=== PATIENT | female | born 1965 | race Caucasian/White ===

== ENCOUNTER → 2016-03-01 | Outpatient (CLI) | payer MEDICARE, OTHER ==
--- NOTE | 2016-03-01 14:25 | XR ---
EXAMINATION TYPE: XR soft tissue neck DATE OF EXAM: 03/01/2016 8:52 AM COMPARISON: NONE HISTORY: Sore throat for one week. TECHNIQUE: 2 views of soft tissue neck are obtained. FINDINGS: No suspicious prevertebral soft tissue swelling is present on lateral view. Region of epigl ottis and vallecula appears within normal limits. Nasopharyngeal airway is patent. No suspicious narr owing of subglottic airway is seen on frontal view. Overlying leads from a pain relief device noted i n the posterior soft tissue. Mild spurring C5-C6 and C6-C7 levels anteriorly is present. Mild disc sp corky narrowing C6-C7 level is noted. IMPRESSION: No significant finding is seen to account for patient's symptoms
== END | disposition home or self-care (01) ==
LOC: RADXRMAIN 08:38
PROVIDERS: ATTEND Family Medicine
DX: J02.9 Acute pharyngitis, unspecified (principal)
CPT/HCPCS: 70360

== ENCOUNTER 2016-07-11 09:05 | Day surgery (SDC) | payer MEDICARE, OTHER ==
[2016-07-07 08:56] VITALS: BMI 27.1
[~2016-07-11 09:05] MED LIST: LACTATED RINGERS 1,000 ML IV SCH
[2016-07-11 12:07] VITALS: RESP 16; TEMP 98.2
[2016-07-11] MEDS ORDERED: LIDOCAINE 1% 20 ML VIAL (10MG/ML) FOR IV START INTRADERMA ONE (12:24)
[2016-07-11] MEDS ORDERED: PROPOFOL 10 MG/ML 20 ML VIAL IV ONE (12:44)
--- NOTE | 2016-07-11 13:27 | P.PCN ---
Date of Procedure: 07/11/16 Preoperative Diagnosis: Postoperative Diagnosis: Procedure(s) Performed: Procedures: 1. Esophagogastroduodenoscopy and biopsy. 2. Total colonoscopy. Preoperative diagnosis: Dysphagia and change in bowel habits. Postoperative diagnosis: 1. Small sliding hiatal hernia with no obvious esophagitis or complicated reflux disease. 2. Mild antral gastritis. 3. Diverticulosis of the colon. Preparation: HalfLytely prep. Sedation: Was provided by anesthesia. Brief clinical history: The patient is a 51-year-old female who is referred for this evaluation because of dysphagia and change in bowel habits in the form of constipation. The patient had evaluation back in 2009 for reflux disease and it included manometry and 24-hour pH in addition to upper endoscopy. She also had colonoscopy in the past. She is scheduled for cholecystectomy next week for cholelithiasis. This evaluation was requested to assess for esophagitis or complicated reflux disease or colon pathology. Procedure: With the patient on her left lateral decubitus position and after informed consent and adequate sedation, I passed the Olympus-GIF 160 video upper endoscope through the cricopharyngeus down the esophagus. GE junction was around 34 cm from the incisors and there was a small sliding hiatal hernia. The esophagus did not show any obvious erosions, ulcers, strictures or Colon 's esophagus. The endoscope was then passed into the stomach which was insufflated with air and inspected in detail including the retroflex view in the cardia. There was some mottling and erythema in the antrum but no ulcers or erosions. Pyloric channel, duodenal bulb, post bulbar area and descending duodenum appeared essentially within normal limits. Because of her symptoms, I obtained biopsies from the duodenum, antrum and esophagus before the endoscope was withdrawn then I proceeded with the colonoscopy. Perianal area did not show any fissures or fistulas. There were no masses felt on digital rectal examination. The Olympus CFQ 160L video colonoscope was then inserted in the rectum in the usual fashion and advanced to the cecum. The mucosa appeared healthy. Multiple diverticular orifices were seen scattered, mostly on the left side with some around the hepatic flexure and on the right side, with no evidence of acute diverticulitis or strictures. No polyps or tumors were seen. I retroflexed the endoscope in the rectum before the endoscope was withdrawn. The patient tolerated the procedure well. Plan: The patient was reassured. Will await biopsy results and make further plans based on her course and biopsy results. She will follow-up with you as planned. Implants: Indications for Procedure: Operative Findings: Description of Procedure:
[2016-07-11 13:37] VITALS: BP 114/77; PULSE 80
== END 2016-07-11 14:01 | disposition home or self-care (01) ==
LOC: ORWHC2ENDO 09:05
DX: K29.50 Unspecified chronic gastritis without bleeding (principal); K21.0 Gastro-esophageal reflux disease with esophagitis; K57.30 Diverticulosis of large intestine without perforation or abscess without bleeding; K44.9 Diaphragmatic hernia without obstruction or gangrene; M79.7 Fibromyalgia; I10 Essential (primary) hypertension; E78.5 Hyperlipidemia, unspecified; I67.1 Cerebral aneurysm, nonruptured; R56.9 Unspecified convulsions; I69.354 Hemiplegia and hemiparesis following cerebral infarction affecting left non-dominant side; F17.200 Nicotine dependence, unspecified, uncomplicated; Z79.02 Long term (current) use of antithrombotics/antiplatelets; Z79.1 Long term (current) use of non-steroidal anti-inflammatories (NSAID); Z79.891 Long term (current) use of opiate analgesic; Z79.899 Other long term (current) drug therapy; Z88.8 Allergy status to other drugs, medicaments and biological substances
CPT/HCPCS: 81025; 88305; 88342; 45378; 43239; J2704

== ENCOUNTER 2016-07-20 05:45 | Day surgery (SDC) | payer MEDICARE, OTHER ==
[2016-07-19 08:24] VITALS: BMI 26.7
[~2016-07-20 05:45] MED LIST changes: +DEXAMETHASONE SOD PHOSPHATE 10 MG/ML 1 ML VIAL IV ONE; +HEPARIN SODIUM,PORCINE 5,000 UNIT/ML 1 ML VIAL SQ ONE; +MIDAZOLAM 2 MG/2 ML VIAL IV PRN; +ONDANSETRON 4 MG/2 ML VIAL IVP ONE
[2016-07-20] MEDS ORDERED: LIDOCAINE 1% 20 ML VIAL (10MG/ML) FOR IV START SQ ONE (06:29)
[2016-07-20] MEDS ORDERED: SCOPOLAMINE 1.5MG/72HR PATCH TRANSDERM ONE (06:33)
--- NOTE | 2016-07-20 07:11 | P.GSHP ---
History of Present Illness H&P Date: 07/20/16 Chief Complaint: Cholecystitis Is a 51-year-old female referred from Dr. Crain. Patient presents today for laparoscopic cholecystectomy. Patient's had a HIDA scan shows abnormal ejection fraction. Stress today for laparoscopic cholecystectomy. Past Medical History Past Medical History: CVA/TIA, Fibromyalgia, GERD/Reflux, Hyperlipidemia, Hypertension, Neurologic Disorder, Seizure Disorder Additional Past Medical History / Comment(s): LAST SEIZURE 12/2015,severe migraines from brain aneurysm, TIA, states x6, LEFT ARM WEAKNESS, NEUROPATHY MATT LEGS, memory loss History of Any Multi-Drug Resistant Organisms: None Reported Past Surgical History: Appendectomy, Uterine Ablation Additional Past Surgical History / Comment(s): r lung surgery top portion lung removed, (STATES R/T FUNGUS) Has implanted TENS unit in back of head WITH BATTERY PACK IN BACK; surgical revision done by Dr. Linton in September 2013, Past Anesthesia/Blood Transfusion Reactions: No Reported Reaction Additional Past Anesthesia/Blood Transfusion Reaction / Comment(s): STATES VERY HARD IV START, Past Psychological History: Anxiety, Panic Disorder Smoking Status: Current every day smoker Past Alcohol Use History: Rare Additional Past Alcohol Use History / Comment(s): smokes 1ppd from age 19, (1983 ) ONCE A WEEK alchohol) Past Drug Use History: None Reported Additional Drug Use History / Comment(s): PAST HISTORY, NONE IN 10 YEARS - Past Family History Mother Family Medical History: Cancer Additional Family Medical History / Comment(s): COLON Brother(s) Family Medical History: Cancer Additional Family Medical History / Comment(s): COLON Medications and Allergies Home Medications Medication Instructions Recorded Confirmed Type Cetirizine HCl 10 mg PO DAILY 09/07/13 07/20/16 History Dicyclomine [Bentyl] 10 mg PO BID 09/07/13 07/20/16 History HYDROcodone/APAP 7.5-325MG [[place] 1 each PO Q12HR PRN 09/07/13 07/20/16 History 7.5] Hydrochlorothiazide [Hydrodiuril] 25 mg PO DAILY 09/07/13 07/20/16 History Ibuprofen [Motrin] 800 mg PO Q6HR PRN 09/07/13 07/19/16 History LORazepam [Ativan] 0.5 mg PO DAILY PRN 09/07/13 07/20/16 History Multivitamins, Thera [Multivitamin] 1 cap PO DAILY 09/07/13 07/19/16 History Ondansetron [Zofran ODT] 8 mg PO ONCE PRN 09/07/13 07/20/16 History Ranitidine HCl [Zantac] 150 mg PO DIRECTED PRN 09/07/13 07/20/16 History Scopolamine 1.5MG/72Hr Patch 1 patch TRANSDERM Q72H PRN 09/07/13 07/20/16 History [Trans-Derm Scop 1.5MG/72Hr Patch] Clopidogrel [Plavix] 75 mg PO DAILY 02/16/14 07/19/16 History Benazepril HCl [Lotensin] 20 mg PO DAILY 10/09/14 07/20/16 History Cyclobenzaprine [Flexeril] 10 mg PO HS 10/09/14 07/20/16 History Divalproex [Depakote] 1,000 mg PO BID 10/09/14 07/20/16 History Lidocaine 5% Patch [Lidoderm 5% 1 applic TOPICAL Q12H PRN 10/09/14 07/20/16 History Patch] Pregabalin [Lyrica] 100 mg PO BID 10/09/14 07/20/16 History Vitamin D(Different Dose) 1.25 mg PO Q30D 10/09/14 07/20/16 History levETIRAcetam [Keppra] 1,000 mg PO BID 10/09/14 07/20/16 History Gemfibrozil [Lopid] 600 mg PO AC-BID 07/07/16 07/20/16 History Allergies Allergy/AdvReac Type Severity Reaction Status Date / Time naratriptan HCl [From Amerge] Allergy Unknown Verified 07/19/16 08:10 Jyqdttx-Qql-Hav Reductase Allergy Rash/Hives Verified 07/19/16 08:10 Inhibitor migraine medications AdvReac causes Uncoded 07/19/16 08:10 seizures Surgical - Exam Vital Signs Temp Pulse Resp BP Pulse Ox 97.7 F 75 16 94/65 97 07/20/16 06:15 07/20/16 06:15 07/20/16 06:15 07/20/16 06:15 07/20/16 06:15 - General well developed, no distress - Eyes PERRL - ENT normal pinna - Neck no masses - Respiratory normal expansion - Cardiovascular Rhythm: regular - Abdomen Abdomen: soft, non tender Assessment and Plan Plan: Chronic cholecystitis. We'll perform laparoscopic cholecystectomy.
[2016-07-20] MEDS ORDERED: ROCURONIUM BROMIDE 10 MG/ML 10 ML VIAL IV ONE (07:13)
[2016-07-20] MEDS ORDERED: GLYCOPYRROLATE 0.2 MG/ML 2 ML VIAL ONE (07:13)
[2016-07-20] MEDS ORDERED: PROPOFOL 10 MG/ML 20 ML VIAL IV ONE (07:13)
[2016-07-20] MEDS ORDERED: KETAMINE 10 MG/ML 20 ML VIAL ONE (07:13)
[2016-07-20] MEDS ORDERED: SUCCINYLCHOLINE CHLORIDE 100 MG/5 ML SYR IV ONE (07:13)
[2016-07-20] MEDS ORDERED: MIDAZOLAM 2 MG/2 ML VIAL ONE (07:13)
[2016-07-20] MEDS ORDERED: NEOSTIGMINE 1 MG/ML 10 ML VIAL ONE (07:13)
[2016-07-20] MEDS: ceFAZolin 2 GM in SODIUM CHLORIDE 0.9% 100 ML IVPB ONE ×2 (07:13→07:19)
[2016-07-20] MEDS ORDERED: fentaNYL (PF) 50 MCG/ML 2 ML AMP ONE (07:13)
[2016-07-20] MEDS ORDERED: LIDOCAINE 1% INJ 10MG/ML (20 ML MDV) ONE (07:13)
[2016-07-20] MEDS ORDERED: BUPIVACAIN-EPI 0.25%-1:200,000 30 ML VIAL SQ ONE ×2 (07:15→07:30)
[2016-07-20] MEDS: HYDROmorphone 1 MG/ML 1 ML SYRINGE IVP PRN ×3 (07:45→08:10)
--- NOTE | 2016-07-20 07:48 | P.OP ---
Date of Procedure: 07/20/16 Preoperative Diagnosis: Cholecystitis Postoperative Diagnosis: Cholecystitis Procedure(s) Performed: Laparoscopic cholecystectomy Implants: Anesthesia: LARON Surgeon: Baldo Hodges Estimated Blood Loss (ml): 5 Pathology: other (Gallbladder) Condition: stable Disposition: PACU Indications for Procedure: Operative Findings: Description of Procedure: The patient was placed on the operating table. The patient received a general endotracheal tube anesthesia. The patients abdomen was prepped and draped in the usual sterile fashion. Through an infraumbilical stab incision, the fascia of the anterior abdominal wall was grasped with a pair of Kochers and then the Veress needle was placed in the peritoneal cavity. Position of the Veress needle was confirmed with positive drop test. The abdomen was then insufflated. After adequate insufflation, the 10 mm trocar was placed in the peritoneal cavity. Following this the laparoscope was placed in the peritoneal cavity. The patient was placed in the head-up, right side up position and then a 5 mm trocar was placed in the right lateral and right subcostal position under direct visualization. A 8 mm trocar was placed in the epigastric position. The gallbladder was grasped in the fundus and infundibulum. Traction on the gallbladder was placed in the lateral and the cephalad positions. The triangle of Calot was visualized.. The cystic duct was bluntly dissected until the union of the cystic duct and common bile duct was seen. The cystic duct was then divided and sealed with the Harmonic scissors. A PDS Endoloop was then placed throughout the cystic duct stump. The cystic artery divided and sealed with the Harmonic scissors. The gallbladder was then removed from the liver bed using Harmonic scissors. The gallbladder was then extracted through the epigastric port site. Operative field was checked for any bleeding spots and Harmonic scissors was used to coagulate the liver bed. The abdomen was irrigated. The trocars were removed. The skin was closed using interrupted 3-0 Vicryl suture. Dermabond dressing were applied. The patient tolerated the procedure well.
[2016-07-20 08:09] VITALS: TEMP 98
[2016-07-20] MEDS ORDERED: KETOROLAC 30 MG/ML 1 ML VIAL IVP ONE (08:10)
[2016-07-20] MEDS ORDERED: MEPERIDINE 50 MG/ML SYRINGE IVP ONE (08:44)
[2016-07-20] MEDS ORDERED: FAMOTIDINE 20 MG/2 ML VIAL IVP ONE (08:52)
[2016-07-20] MEDS ORDERED: METOCLOPRAMIDE 5 MG/ML 2 ML VIAL IVP ONE (08:54)
[2016-07-20] MEDS ORDERED: HYDROcodone/APAP 7.5-325MG 1 EACH TAB PO ONE (09:10)
[2016-07-20 09:39] VITALS: BP 118/74; PULSE 74; RESP 16
== END 2016-07-20 10:13 | disposition home or self-care (01) ==
LOC: OR 05:45
PROVIDERS: ATTEND Surgery
DX: K80.12 Calculus of gallbladder with acute and chronic cholecystitis without obstruction (principal); I10 Essential (primary) hypertension; E78.5 Hyperlipidemia, unspecified; K21.9 Gastro-esophageal reflux disease without esophagitis; M79.7 Fibromyalgia; G40.909 Epilepsy, unspecified, not intractable, without status epilepticus; F17.200 Nicotine dependence, unspecified, uncomplicated; Z88.8 Allergy status to other drugs, medicaments and biological substances; Z79.02 Long term (current) use of antithrombotics/antiplatelets; Z79.899 Other long term (current) drug therapy; Z86.73 Personal history of transient ischemic attack (TIA), and cerebral infarction without residual deficits; Z80.0 Family history of malignant neoplasm of digestive organs; Z90.49 Acquired absence of other specified parts of digestive tract
CPT/HCPCS: 47562; 81025; 88304; J2250; J1644; J1100; J2710; J2765; J2175; J0690; J2405; J2001; J3010; J1885; J1170; J0330; J2704

== ENCOUNTER 2016-10-19 12:07 | Inpatient (IN) | payer MEDICARE, OTHER ==
[2016-10-19] MEDS ORDERED: SODIUM CHLORIDE 0.9% 1,000 ML IV STA ×2 (12:38)
[2016-10-19] MEDS ORDERED: KETOROLAC 30 MG/ML 1 ML VIAL IVP STA (12:38)
[2016-10-19] MEDS ORDERED: HYDROmorphone 1 MG/ML 1 ML SYRINGE IVP STA ×2 (12:38→15:27)
[2016-10-19] MEDS ORDERED: ONDANSETRON 4 MG/2 ML VIAL IVP STA (12:39)
--- NOTE | 2016-10-19 12:58 | ED ---
Abdominal Pain HPI - General Chief Complaint: Abdominal Pain Stated Complaint: POSS KIDNEY STONE Time Seen by Provider: 10/19/16 12:31 Source: patient, RN notes reviewed, old records reviewed Mode of arrival: wheelchair Limitations: no limitations - History of Present Illness Initial Comments: This is a 51-year-old female presents emergency Department chief complaint of left-sided flank pain for the past 2 days. Patient reports that she saw her primary care doctor she had a foul odor to her urine and some blood in her urine. Patient reports that she started to have some fevers and chills. Patient reports that yesterday they diagnosed her with urinary tract infection and placed her on antibiotic. She reports the pain became progressively worse. Did have episode of vomiting earlier today. Patient states that she's had a history of cholecystectomy. Denies any previous History of kidney stones. - Related Data Home Medications Medication Instructions Recorded Confirmed Cetirizine HCl 10 mg PO DAILY 09/07/13 10/19/16 Dicyclomine [Bentyl] 10 mg PO BID 09/07/13 10/19/16 Hydrochlorothiazide [Hydrodiuril] 25 mg PO DAILY 09/07/13 10/19/16 Ibuprofen [Motrin] 800 mg PO Q6HR PRN 09/07/13 10/19/16 LORazepam [Ativan] 0.5 mg PO BID PRN 09/07/13 10/19/16 Multivitamins, Thera [Multivitamin] 1 tab PO DAILY 09/07/13 10/19/16 Ondansetron [Zofran ODT] 8 mg PO DAILY PRN 09/07/13 10/19/16 Ranitidine HCl [Zantac] 150 mg PO BID 09/07/13 10/19/16 Clopidogrel [Plavix] 75 mg PO DAILY 02/16/14 10/19/16 Benazepril HCl [Lotensin] 20 mg PO DAILY 10/09/14 10/19/16 Cyclobenzaprine [Flexeril] 10 mg PO HS 10/09/14 10/19/16 Divalproex [Depakote] 1,000 mg PO BID 10/09/14 10/19/16 levETIRAcetam [Keppra] 1,000 mg PO BID 10/09/14 10/19/16 Gemfibrozil [Lopid] 600 mg PO AC-BID 07/07/16 10/19/16 Aspirin 81 mg PO DAILY 10/19/16 10/19/16 Ergocalciferol (Vitamin D2) 50,000 unit PO Q30D 10/19/16 10/19/16 [Vitamin D2] HYDROcodone/APAP 7.5-325MG [[place] 1 tab PO QID PRN 10/19/16 10/19/16 7.5] Omeprazole [PriLOSEC] 10 mg PO DAILY 10/19/16 10/19/16 Pregabalin [Lyrica] 75 mg PO BID 10/19/16 10/19/16 Sulfamethox-Tmp 800-160Mg [Bactrim 1 tab PO Q12HR 10/19/16 10/19/16 DS 800-160 mg] Allergies Allergy/AdvReac Type Severity Reaction Status Date / Time naratriptan HCl [From Amerge] Allergy Unknown Verified 10/19/16 12:43 Kcgtuae-Lqj-Izk Reductase Allergy Rash/Hives Verified 10/19/16 12:43 Inhibitor migraine medications AdvReac causes Uncoded 10/19/16 12:26 seizures Review of Systems ROS Statement: Those systems with pertinent positive or pertinent negative responses have been documented in the HPI. ROS Other: All systems not noted in ROS Statement are negative. Past Medical History Past Medical History: CVA/TIA, Fibromyalgia, GERD/Reflux, Hyperlipidemia, Hypertension, Neurologic Disorder, Seizure Disorder Additional Past Medical History / Comment(s): LAST SEIZURE 12/2015,severe migraines from brain aneurysm, TIA, states x6, LEFT ARM WEAKNESS, NEUROPATHY MATT LEGS, memory loss History of Any Multi-Drug Resistant Organisms: None Reported Past Surgical History: Appendectomy, Uterine Ablation Additional Past Surgical History / Comment(s): r lung surgery top portion lung removed, (STATES R/T FUNGUS) Has implanted TENS unit in back of head WITH BATTERY PACK IN BACK; surgical revision done by Dr. Linton in September 2013, Past Anesthesia/Blood Transfusion Reactions: No Reported Reaction Additional Past Anesthesia/Blood Transfusion Reaction / Comment(s): STATES VERY HARD IV START, Past Psychological History: Anxiety, Panic Disorder Smoking Status: Current every day smoker Past Alcohol Use History: Rare Past Drug Use History: None Reported - Past Family History Mother Family Medical History: Cancer Additional Family Medical History / Comment(s): COLON Brother(s) Family Medical History: Cancer Additional Family Medical History / Comment(s): COLON General Exam - General Exam Comments Initial Comments: 51-year-old female. No acute distress. Limitations: no limitations General appearance: alert, in no apparent distress Head exam: Present: atraumatic, normocephalic, normal inspection Eye exam: Present: normal appearance, PERRL, EOMI. Absent: scleral icterus, conjunctival injection, periorbital swelling ENT exam: Present: normal exam, mucous membranes moist Neck exam: Present: normal inspection. Absent: tenderness, meningismus, lymphadenopathy Respiratory exam: Present: normal lung sounds bilaterally. Absent: respiratory distress, wheezes, rales, rhonchi, stridor Cardiovascular Exam: Present: regular rate, normal rhythm, normal heart sounds. Absent: systolic murmur, diastolic murmur, rubs, gallop, clicks GI/Abdominal exam: Present: soft, tenderness (left sided abdominal tenderness), normal bowel sounds. Absent: distended, guarding, rebound, rigid Extremities exam: Present: normal inspection, full ROM, normal capillary refill. Absent: tenderness, pedal edema, joint swelling, calf tenderness Back exam: Present: normal inspection, CVA tenderness (L) Neurological exam: Present: alert, oriented X3, CN II-XII intact Course Vital Signs 10/19/16 10/19/16 10/19/16 12:26 14:32 15:36 Temperature 98.4 F 97.9 F 97.9 F Pulse Rate 99 83 87 Respiratory 16 17 18 Rate Blood Pressure 102/55 99/53 96/55 O2 Sat by Pulse 95 97 99 Oximetry Medical Decision Making - Medical Decision Making -year-old female with 2 days of significant left flank pain. Patient saw her primary care doctor after having some blood in her urine yesterday. Was started on Bactrim. Patient reports she's taken 3 pills of Bactrim. She reports she's containing felt feverish and chilled. Patient has significant left-sided CVA tenderness and left-sided abdominal tenderness. Patient's lab work was reviewed elevated white blood cell count of 21,000 with a left shift of 18.2. Urinalysis is positive for signs of infection. No blood noted in the urine. CT abdomen and pelvis with contrast was performed. Evidence of left sided pyelonephritis. Patient started on IV Levaquin. Patient continues to have significant pain despite IV pain medication and nausea medication. Discussed case with Dr. Childs. He will discuss this with Dr. West will the patient. - Lab Data Result diagrams: 10/19/16 13:10 10/19/16 13:10 Lab Results 10/19/16 10/19/16 10/19/16 Range/Units 13:10 13:10 13:10 WBC 21.7 H (3.8-10.6) k/uL RBC 4.07 (3.80-5.40) m/uL Hgb 12.5 (11.4-16.0) gm/dL Hct 36.0 (34.0-46.0) % MCV 88.5 (80.0-100.0) fL MCH 30.8 (25.0-35.0) pg MCHC 34.8 (31.0-37.0) g/dL RDW 13.3 (11.5-15.5) % Plt Count 417 (150-450) k/uL Neutrophils % 84 % Lymphocytes % 9 % Monocytes % 5 % Eosinophils % 1 % Basophils % 0 % Neutrophils # 18.2 H (1.3-7.7) k/uL Lymphocytes # 2.0 (1.0-4.8) k/uL Monocytes # 1.0 (0-1.0) k/uL Eosinophils # 0.1 (0-0.7) k/uL Basophils # 0.1 (0-0.2) k/uL PT 10.1 (9.0-12.0) sec INR 1.0 (<1.2) APTT 24.6 (22.0-30.0) sec Sodium 132 L (137-145) mmol/L Potassium 4.2 (3.5-5.1) mmol/L Chloride 100 (98-107) mmol/L Carbon Dioxide 20 L (22-30) mmol/L Anion Gap 12 mmol/L BUN 8 (7-17) mg/dL Creatinine 0.62 (0.52-1.04) mg/dL Est GFR (MDRD) Af Amer >60 (>60 ml/min/1.73 sqM) Est GFR (MDRD) Non-Af >60 (>60 ml/min/1.73 sqM) Glucose 89 (74-99) mg/dL Calcium 9.7 (8.4-10.2) mg/dL Total Bilirubin 0.5 (0.2-1.3) mg/dL AST 23 (14-36) U/L ALT 33 (9-52) U/L Alkaline Phosphatase 99 (38-126) U/L Total Protein 7.0 (6.3-8.2) g/dL Albumin 4.4 (3.5-5.0) g/dL Amylase <30 L (30-110) U/L Lipase 59 (23-300) U/L Urine Color Urine Appearance (Clear) Urine pH (5.0-8.0) Ur Specific [place] (1.001-1.035) Urine Protein (Negative) Urine Glucose (UA) (Negative) Urine Ketones (Negative) Urine Blood (Negative) Urine Nitrite (Negative) Urine Bilirubin (Negative) Urine Urobilinogen (<2.0) mg/dL Ur Leukocyte Esterase (Negative) Urine RBC (0-5) /hpf Urine WBC (0-5) /hpf Ur Squamous Epith Cells (0-4) /hpf Urine Bacteria (None) /hpf Hyaline Casts (0-2) /lpf Urine Mucus (None) /hpf 10/19/16 Range/Units 13:10 WBC (3.8-10.6) k/uL RBC (3.80-5.40) m/uL Hgb (11.4-16.0) gm/dL Hct (34.0-46.0) % MCV (80.0-100.0) fL MCH (25.0-35.0) pg MCHC (31.0-37.0) g/dL RDW (11.5-15.5) % Plt Count (150-450) k/uL Neutrophils % % Lymphocytes % % Monocytes % % Eosinophils % % Basophils % % Neutrophils # (1.3-7.7) k/uL Lymphocytes # (1.0-4.8) k/uL Monocytes # (0-1.0) k/uL Eosinophils # (0-0.7) k/uL Basophils # (0-0.2) k/uL PT (9.0-12.0) sec INR (<1.2) APTT (22.0-30.0) sec Sodium (137-145) mmol/L Potassium (3.5-5.1) mmol/L Chloride (98-107) mmol/L Carbon Dioxide (22-30) mmol/L Anion Gap mmol/L BUN (7-17) mg/dL Creatinine (0.52-1.04) mg/dL Est GFR (MDRD) Af Amer (>60 ml/min/1.73 sqM) Est GFR (MDRD) Non-Af (>60 ml/min/1.73 sqM) Glucose (74-99) mg/dL Calcium (8.4-10.2) mg/dL Total Bilirubin (0.2-1.3) mg/dL AST (14-36) U/L ALT (9-52) U/L Alkaline Phosphatase (38-126) U/L Total Protein (6.3-8.2) g/dL Albumin (3.5-5.0) g/dL Amylase (30-110) U/L Lipase (23-300) U/L Urine Color Yellow Urine Appearance Cloudy H (Clear) Urine pH 6.5 (5.0-8.0) Ur Specific [place] 1.013 (1.001-1.035) Urine Protein Negative (Negative) Urine Glucose (UA) Negative (Negative) Urine Ketones Negative (Negative) Urine Blood Negative (Negative) Urine Nitrite Negative (Negative) Urine Bilirubin Negative (Negative) Urine Urobilinogen <2.0 (<2.0) mg/dL Ur Leukocyte Esterase Moderate H (Negative) Urine RBC 3 (0-5) /hpf Urine WBC 43 H (0-5) /hpf Ur Squamous Epith Cells 7 H (0-4) /hpf Urine Bacteria Rare H (None) /hpf Hyaline Casts 2 (0-2) /lpf Urine Mucus Rare H (None) /hpf - Radiology Data Radiology results: report reviewed CT findings are consistent with acute pyelonephritis involving the left medial kidney given patient's symptoms. Underlying cystitis occluded. Clinical and urinalysis correlation advised. Disposition Clinical Impression: Pyelonephritis Disposition: ADMITTED IP TO THIS HOSP Condition: Stable Time of Disposition: 15:47
[2016-10-19 13:37] LABS: Basophils # (A) 0.1 k/uL (0-0.2); Basophils % (A) 0 %; CHCM 36.2; Eosinophils # (A) 0.1 k/uL (0-0.7); Eosinophils % (A) 1 %; HDW 2.21; HGB 12.5 gm/dL (11.4-16.0); Luc # (Auto) 0.22; Luc % (Auto) 1; Lymphocytes % (A) 9 %; MCH 30.8 pg (25.0-35.0); MCHC 34.8 g/dL (31.0-37.0); MCV 88.5 fL (80.0-100.0); Mean Platelet Volume 7.2; Monocytes % (A) 5 %; Neutrophils # (A) 18.2 k/uL (1.3-7.7); Neutrophils % (A) 84 %; RBC 4.07 m/uL (3.80-5.40); RDW 13.3 % (11.5-15.5); WBC 21.7 k/uL (3.8-10.6); WBC (Perox) 22.02
[2016-10-19 13:42] LABS: Appearance,Urine Cloudy (Clear); Bacteria,Urine Rare /hpf; Bilirubin,Urine Negative (Negative); Glucose,Urine (UA) Negative (Negative); Ketones,Urine Negative (Negative); Leukocyte Esterase,Urine Moderate (Negative); Mucus,Urine Rare /hpf; Nitrite,Urine Negative (Negative); PH, Urine 6.5 (5.0-8.0); Particle Count 5586; Protein,Urine Negative (Negative); RBC,Urine 3 /hpf (0-5); Specific Gravity,Urine 1.013 (1.001-1.035); Squamous Epithelial Cell,Urine 7 /hpf (0-4); UA Billing (MACRO vs. MICRO) MICRO; Urobilinogen,Urine <2.0 mg/dL (<2.0); WBC,Urine 43 /hpf (0-5)
--- NOTE | 2016-10-19 13:43 | XR ---
EXAMINATION TYPE: XR KUB DATE OF EXAM: 10/19/2016 COMPARISON: NONE HISTORY: Pain TECHNIQUE: Single supine KUB image of the abdomen is obtained FINDINGS: Small bowel demonstrates mildly distended loops of bowel left hemiabdomen. No air-fluid level seen. Gas and fecal material is seen in non-distended colon. No convincing evidence for pneumoperitoneum. No unusual calcifications. The lung bases are clear. The osseous structures are intact. IMPRESSION: 1. Nonspecific nonobstructive bowel gas pattern.
[2016-10-19 13:48] LABS: Partial Thromboplastin Time 24.6 sec (22.0-30.0); Prothrombin Time 10.1 sec (9.0-12.0)
[2016-10-19 13:57] LABS: ALT 33 U/L (9-52); AST 23 U/L (14-36); Alkaline Phosphatase 99 U/L (38-126); Amylase <30 U/L (30-110); Anion Gap 12 mmol/L; Blood Urea Nitrogen 8 mg/dL (7-17); Calcium 9.7 mg/dL (8.4-10.2); Carbon Dioxide 20 mmol/L (22-30); Chloride 100 mmol/L (98-107); Glucose 89 mg/dL (74-99); Non-African American GFR(MDRD) >60 (>60 ml/min/1.73 sqM); Potassium 4.2 mmol/L (3.5-5.1); Sodium 132 mmol/L (137-145); Total Bilirubin 0.5 mg/dL (0.2-1.3)
[2016-10-19] MEDS ORDERED: RX INFO: IV CONTRAST WAS GIVEN 1 EACH MISC MISCELLANE PRN (14:02)
[2016-10-19] MEDS ORDERED: LEVOFLOXACIN 750MG-D5W PMX 750 MG in DEXTROSE/WATER 1 150ML.BAG IVPB STA (14:02)
--- NOTE | 2016-10-19 15:17 | CT ---
EXAMINATION TYPE: CT abdomen pelvis w con DATE OF EXAM: 10/19/2016 HISTORY: Patient complains of left flank pain. CT DLP: 441.2mGycm Automated Exposure Control for Dose Reduction was Utilized. CONTRAST: CT scan of the abdomen and pelvis is performed without oral but with IV Contrast, patient injected wi th 100 mL of Omnipaque 300. COMPARISON: Abdominal x-ray earlier today. FINDINGS: LUNG BASES: Dependent atelectasis is present bilaterally. LIVER/GB: Gallbladder is not visualized and presumed surgically absent. Common bile duct is within no rmal limits given suspected cholecystectomy. PANCREAS: No significant abnormality is seen. SPLEEN: No significant abnormality is seen. ADRENALS: No significant abnormality is seen. KIDNEYS: There is vague heterogeneous irregular area of nonenhancement medial left kidney worrisome f or acute pyelonephritis given the patient's history seen best on delayed images near axial image 30. There is symmetric cortical medullary uptake and excretion from both kidneys without evidence of luisito l stones or hydronephrosis bilaterally. Bladder has mild wall thickening measuring up to 5 mm, underl stephon cystitis is not excluded. Incidental note is made of accessory right renal artery seen best on coronal images. BOWEL: Surgical clips just below diaphragm near gastroesophageal junction are noted. Evaluation of th e bowel is suboptimal secondary to lack of enteric contrast. Surgical clips and sutures from appendec adriana are seen at level of cecum. There are diverticula in the descending and sigmoid colon. There is no convincing CT evidence for acute diverticulitis UTERUS/ADNEXA: Tubal ligation clips along the periphery of anteverted uterus is present. LYMPH NODES: No greater than 1cm abdominal or pelvic lymph nodes are appreciated. OSSEOUS STRUCTURES: No significant abnormality is seen. OTHER: No significant additional abnormality is seen. IMPRESSION: CT findings are consistent with focal acute pyelonephritis involving the medial left kidn ey given patient's symptoms. Underlying cystitis is not excluded. Clinical and urine lab correlation advised.
[2016-10-19] MEDS ORDERED: IBUPROFEN 400 MG TAB PO PRN (15:48)
[2016-10-19] MEDS ORDERED: NALOXONE 0.4 MG/ML 1 ML VIAL IV PRN (15:48)
[2016-10-19] MEDS ORDERED: ACETAMINOPHEN TAB 325 MG TAB PO PRN (15:48)
[2016-10-19] MEDS ORDERED: ERGOCALCIFEROL 50,000 UNIT CAP PO SCH (16:15)
[2016-10-19] MEDS: GEMFIBROZIL 600 MG TAB PO SCH (17:53)
[2016-10-19] MEDS: HYDROmorphone 1 MG/ML 1 ML SYRINGE IV PRN ×2 (19:15→22:53)
[2016-10-19] MEDS: LORazepam 0.5 MG TAB PO PRN (19:15)
[2016-10-19] MEDS: CYCLOBENZAPRINE 10 MG TAB PO SCH (20:51)
[2016-10-19] MEDS: levETIRAcetam 500 MG TAB PO SCH (20:51)
[2016-10-19] MEDS: PREGABALIN 75 MG CAP PO SCH (20:51)
[2016-10-19] MEDS: DICYCLOMINE 10 MG CAP PO SCH (20:51)
[2016-10-19] MEDS: ONDANSETRON 4 MG/2 ML VIAL IVP PRN (20:52)
[2016-10-19] MEDS: FAMOTIDINE 20 MG TAB PO SCH (20:52)
[2016-10-19] MEDS: DIVALPROEX 500 MG TABLET.DR PO SCH (20:52)
[2016-10-19] MEDS: SODIUM CHLORIDE 0.9% 1,000 ML IV SCH (20:55)
[2016-10-19] MEDS: KETOROLAC 30 MG/ML 1 ML VIAL IVP PRN (21:39)
[2016-10-19] MEDS ORDERED: SODIUM CHLORIDE 0.9% 500 ML IV ONE (23:32)
[2016-10-20] MEDS: SODIUM CHLORIDE 0.9% 1,000 ML IV SCH ×3 (00:40→17:22)
[2016-10-20] MEDS ORDERED: SODIUM CHLORIDE 0.9% 500 ML IV ONE (03:35)
[2016-10-20 05:40] LABS: Glucose,Whole Blood 89 mg/dL (75-99)
[2016-10-20] MEDS: HYDROmorphone 1 MG/ML 1 ML SYRINGE IV PRN ×5 (05:45→21:26)
[2016-10-20] MEDS ORDERED: SODIUM CHLORIDE 0.9% 1,000 ML IV ONE (06:00)
[2016-10-20] MEDS ORDERED: IPRATROPIUM-ALBUTEROL 3 ML NEB INHALATION PRN (06:15)
[2016-10-20] MEDS ORDERED: NOREPINEPHRIN 4 MG-0.9% NS PMX 4 MG/250 ML ML IV SCH (06:15)
[2016-10-20 06:55] LABS: Basophils % (A) 0 %; CH 29.8; CHCM 32.8; Eosinophils # (A) 0.1 k/uL (0-0.7); Eosinophils % (A) 1 %; HDW 2.25; Luc # (Auto) 0.32; Luc % (Auto) 3; Lymphocytes # (A) 2.1 k/uL (1.0-4.8); Lymphocytes % (A) 21 %; MCH 31.2 pg (25.0-35.0); MCHC 34.2 g/dL (31.0-37.0); MCV 91.3 fL (80.0-100.0); Mean Platelet Volume 6.8; Monocytes # (A) 0.6 k/uL (0-1.0); Monocytes % (A) 6 %; Neutrophils # (A) 6.7 k/uL (1.3-7.7); Neutrophils % (A) 68 %; RBC 2.96 m/uL (3.80-5.40); RDW 12.4 % (11.5-15.5); WBC 9.9 k/uL (3.8-10.6); WBC (Perox) 10.37
[2016-10-20 07:12] LABS: HGB 9.2 gm/dL (11.4-16.0)
[2016-10-20 07:22] LABS: Anion Gap 5 mmol/L; Blood Urea Nitrogen 6 mg/dL (7-17); Calcium 7.1 mg/dL (8.4-10.2); Carbon Dioxide 20 mmol/L (22-30); Chloride 110 mmol/L (98-107); Glucose 77 mg/dL (74-99); Magnesium 1.4 mg/dL (1.6-2.3); Non-African American GFR(MDRD) >60 (>60 ml/min/1.73 sqM); Phosphorous 2.9 mg/dL (2.5-4.5); Sodium 135 mmol/L (137-145)
[2016-10-20] MEDS ORDERED: HYDROCHLOROTHIAZIDE 25 MG TAB PO SCH (09:00)
[2016-10-20] MEDS ORDERED: PANTOPRAZOLE 40 MG/10 ML VIAL IV SCH (09:00)
[2016-10-20] MEDS ORDERED: LISINOPRIL 20 MG TAB PO SCH (09:00)
[2016-10-20] MEDS ORDERED: OMEPRAZOLE 10 MG PO SCH (09:00)
[2016-10-20] MEDS ORDERED: Magnesium Replacement Protocol 1 EACH MISC MISCELLANE PRN (10:09)
[2016-10-20] MEDS: GEMFIBROZIL 600 MG TAB PO SCH ×2 (10:56→17:23)
[2016-10-20] MEDS: HEPARIN SODIUM,PORCINE 5,000 UNIT/ML 1 ML VIAL SQ SCH ×2 (10:56→15:19)
[2016-10-20] MEDS: CLOPIDOGREL 75 MG TAB PO SCH (10:57)
[2016-10-20] MEDS: DIVALPROEX 500 MG TABLET.DR PO SCH ×2 (10:57→21:29)
[2016-10-20] MEDS: DICYCLOMINE 10 MG CAP PO SCH ×2 (10:57→21:28)
[2016-10-20] MEDS: ASPIRIN 81 MG CHEW PO SCH (10:57)
[2016-10-20] MEDS: FAMOTIDINE 20 MG TAB PO SCH ×2 (10:58→21:25)
[2016-10-20] MEDS: LORATADINE 10 MG TAB PO SCH (10:58)
[2016-10-20] MEDS: levETIRAcetam 500 MG TAB PO SCH ×2 (10:58→21:25)
--- NOTE | 2016-10-20 11:21 | P.CNPUL ---
History of Present Illness Consult date: 10/20/16 Requesting physician: Micah West Reason for consult: other (Acute pyelonephritis and sepsis) Chief complaint: Left flank pain History of present illness: This is a 51-year-old female, with history of multiple medical problems including hypertension, fibromyalgia, seizure disorder, previous TIA, migraine cephalgia, GERD and acid reflux, as well as history of hyperlipidemia. Patient was seen in the ER yesterday with a one-week history of left flank pain. Pain has been getting much worse over the last 2 days. She was also noticing foul odor from her urine. Patient also complained of some chills but no documented fever. The day prior, patient was diagnosed as having urinary tract infection, and she was started on antibiotics. However considering the severity of the pain, patient was seen in the ER, and at that point she was having intermittent episodes of vomiting. Workup in the ER included a CT of the abdomen and pelvis , and it showed vague heterogeneous irregular area of non-enhancement in the medial left kidney felt to be most likely secondary to acute pyelonephritis. Her urine clearly showed evidence of pyuria and bacteriuria. Patient was also noted to be hypotensive, but she responded to 2 L of fluid boluses given in the ER and in the ICU, patient was kept in the ICU, and I was asked to see her on consultation. Patient did not require any pressors. During my evaluation, patient continued to have some left flank pain, but improved. And she was already started on antibiotics in the form of Levaquin and Zosyn. Cultures are pending. Labs showed leukocytosis with WBC count of 21.7. Basic metabolic profile was relatively normal. Renal profile was normal. Lactic acid was normal on a long period Review of Systems Constitutional: Intermittent chills, no documented fever, no weight loss. HEENT: Negative Pulmonary: No cough no wheezing no shortness of breath no chest pain. Cardiac: No palpitations, no diaphoresis, no anginal symptoms, GI: One or 2 episodes of nausea and vomiting. Left flank pain, positive constipation, no melena no hematemesis. Genitourinary: As noted in history of the present illness. Neurologic: Multiple neurological complaints including history of seizure disorder, fibromyalgia, and history of TIA. [place] skeletal: Chronic pain syndrome. Hematologic: No history of clotting bleeding or bruising. Psychiatric: No symptoms of active depression. Past Medical History Past Medical History: CVA/TIA, Fibromyalgia, GERD/Reflux, Hyperlipidemia, Hypertension, Neurologic Disorder, Seizure Disorder Additional Past Medical History / Comment(s): LAST SEIZURE 12/2015,severe migraines from brain aneurysm, TIA, states x6, LEFT ARM WEAKNESS, NEUROPATHY MATT LEGS, memory loss , occ vertigo. History of Any Multi-Drug Resistant Organisms: None Reported Past Surgical History: Appendectomy, Cholecystectomy, Tonsillectomy, Uterine Ablation Additional Past Surgical History / Comment(s): r lung surgery top portion lung removed, (STATES R/T FUNGUS) Has implanted TENS unit in back of head WITH BATTERY PACK IN BACK; surgical revision done by Dr. Linton in September 2013, "brain sx for brayan has a coil" Past Anesthesia/Blood Transfusion Reactions: No Reported Reaction Additional Past Anesthesia/Blood Transfusion Reaction / Comment(s): STATES VERY HARD IV START, Smoking Status: Current every day smoker - Past Family History Father Family Medical History: Liver Disease Additional Family Medical History / Comment(s): ALCOHOLIC CIRRHOISIS Mother Family Medical History: Cancer Additional Family Medical History / Comment(s): COLON Brother(s) Family Medical History: Cancer Additional Family Medical History / Comment(s): COLON Medications and Allergies Home Medications Medication Instructions Recorded Confirmed Type Cetirizine HCl 10 mg PO DAILY 09/07/13 10/19/16 History Dicyclomine [Bentyl] 10 mg PO BID 09/07/13 10/19/16 History Hydrochlorothiazide [Hydrodiuril] 25 mg PO DAILY 09/07/13 10/19/16 History Ibuprofen [Motrin] 800 mg PO Q6HR PRN 09/07/13 10/19/16 History LORazepam [Ativan] 0.5 mg PO BID PRN 09/07/13 10/19/16 History Multivitamins, Thera [Multivitamin] 1 tab PO DAILY 09/07/13 10/19/16 History Ondansetron [Zofran ODT] 8 mg PO DAILY PRN 09/07/13 10/19/16 History Ranitidine HCl [Zantac] 150 mg PO BID 09/07/13 10/19/16 History Clopidogrel [Plavix] 75 mg PO DAILY 02/16/14 10/19/16 History Benazepril HCl [Lotensin] 20 mg PO DAILY 10/09/14 10/19/16 History Cyclobenzaprine [Flexeril] 10 mg PO HS 10/09/14 10/19/16 History Divalproex [Depakote] 1,000 mg PO BID 10/09/14 10/19/16 History levETIRAcetam [Keppra] 1,000 mg PO BID 10/09/14 10/19/16 History Gemfibrozil [Lopid] 600 mg PO AC-BID 07/07/16 10/19/16 History Aspirin 81 mg PO DAILY 10/19/16 10/19/16 History Ergocalciferol (Vitamin D2) 50,000 unit PO Q30D 10/19/16 10/19/16 History [Vitamin D2] HYDROcodone/APAP 7.5-325MG [[place] 1 tab PO QID PRN 10/19/16 10/19/16 History 7.5] Omeprazole [PriLOSEC] 10 mg PO DAILY 10/19/16 10/19/16 History Pregabalin [Lyrica] 75 mg PO BID 10/19/16 10/19/16 History Sulfamethox-Tmp 800-160Mg [Bactrim 1 tab PO Q12HR 10/19/16 10/19/16 History DS 800-160 mg] Allergies Allergy/AdvReac Type Severity Reaction Status Date / Time naratriptan HCl [From Amerge] Allergy Unknown Verified 10/19/16 12:43 Liatggo-Ttm-Adu Reductase Allergy Rash/Hives Verified 10/19/16 12:43 Inhibitor migraine medications AdvReac causes Uncoded 10/19/16 12:26 seizures Physical Exam Vitals: Vital Signs Temp Pulse Pulse Resp BP BP BP 10/20/16 07:00 79 22 87/57 10/20/16 06:30 80 15 78/48 10/20/16 06:10 85 17 87/63 10/20/16 06:00 84 18 94/57 10/20/16 05:50 82 12 93/60 10/20/16 05:40 79 13 90/58 10/20/16 05:36 98.4 F 80 12 109/71 10/20/16 04:35 76/52 10/20/16 03:00 80/48 80/49 10/20/16 00:38 99/50 10/20/16 00:00 85 18 10/19/16 23:00 84/49 82/50 10/19/16 22:51 98.1 F 85 18 91/51 10/19/16 17:03 18 10/19/16 15:36 97.9 F 87 18 96/55 10/19/16 14:32 97.9 F 83 17 99/53 10/19/16 12:26 98.4 F 99 16 102/55 Pulse Ox 10/20/16 07:00 94 L 10/20/16 06:30 95 10/20/16 06:10 93 L 10/20/16 06:00 93 L 10/20/16 05:50 95 10/20/16 05:40 96 10/20/16 05:36 97 10/20/16 04:35 10/20/16 03:00 10/20/16 00:38 10/20/16 00:00 10/19/16 23:00 10/19/16 22:51 94 L 10/19/16 17:03 10/19/16 15:36 99 10/19/16 14:32 97 10/19/16 12:26 95 Intake and Output 10/19/16 10/20/16 10/20/16 22:59 06:59 14:59 Intake Total 6620 633 2696 Output Total 300 Balance 1930 -180 1120 Intake: IV 120 1120 Sodium Chloride 0.9% 1, 120 120 000 ml @ 120 mls/hr IV . Q8H20M [facility] Rx#:[id number] Sodium Chloride 0.9% 1, 1000 000 ml @ 999 mls/hr IV . Q1H1M [facility] Rx#:[id number] Intake, IV Titration 1930 Amount Sodium Chloride 0.9% 1, 1430 000 ml @ 120 mls/hr IV . Q8H20M [facility] Rx#:[id number] Sodium Chloride 0.9% 500 500 ml @ 999 mls/hr IV .Q31M ONE Rx#:[id number] Output: Urine 300 Other: Voiding Method Toilet Toilet # Voids 3 Physical Exam: Revealed a 51-year-old female in no distress. HEENT:[Neck is supple.] [No neck masses.] [No thyromegaly.] [No JVD.] Chest: [Clear throughout, no crackles, no rhonchi, no wheezes.] Cardiac Exam: [Normal S1 and S2, no S3 gallop, no murmur.] Abdomen: [Soft, slightly tender left upper quadrant, no megaly, no rebound, no guarding, normal bowel sounds.] Extremities: [No clubbing, no edema, no cyanosis.] Neurological Exam: [No focal neurologic deficit.] Results - Laboratory Findings CBC and BMP: 10/20/16 06:42 10/20/16 06:42 PT/INR, D-dimer PT 10.1 sec (9.0-12.0) 10/19/16 13:10 INR 1.0 (<1.2) 10/19/16 13:10 Abnormal lab findings: Abnormal Labs 10/19/16 10/19/16 10/19/16 13:10 13:10 13:10 WBC 21.7 H RBC Hgb Hct Neutrophils # 18.2 H Sodium 132 L Chloride Carbon Dioxide 20 L BUN Calcium Magnesium Amylase <30 L Urine Appearance Cloudy H Ur Leukocyte Esterase Moderate H Urine WBC 43 H Ur Squamous Epith Cells 7 H Urine Bacteria Rare H Urine Mucus Rare H 10/20/16 10/20/16 06:42 06:42 WBC RBC 2.96 L Hgb 9.2 L D Hct 27.0 L Neutrophils # Sodium 135 L Chloride 110 H Carbon Dioxide 20 L BUN 6 L Calcium 7.1 L Magnesium 1.4 L Amylase Urine Appearance Ur Leukocyte Esterase Urine WBC Ur Squamous Epith Cells Urine Bacteria Urine Mucus - Diagnostic Findings Additional studies: KUB and CT of the abdomen and pelvis were reviewed, findings were consistent with nonspecific nonobstructive bowel gas pattern, and possible left sided pyelonephritis. Assessment and Plan Plan: Impression: 1 acute pyelonephritis, suspect sepsis secondary to pyelonephritis and urinary tract infection. 2 history of multiple comorbidities including fibromyalgia, seizure disorder, chronic pain syndrome, TIA, severe migraine cephalgia, history of GERD, history of hypertension and hyperlipidemia. Recommendation: Continue IV fluids, antibiotics in the form of Levaquin and Zosyn, however that will be adjusted according to the final culture in the urine , blood cultures are pending so far the patient has not required any pressors, but demonstrated intermittent episodes of hypotension requiring fluid boluses. Patient will remain in the ICU for now, and placed on standard sepsis protocol and ICU orders. We'll continue to follow. Time with Patient: Greater than 30
[2016-10-20] MEDS: MAGNESIUM SULFATE-D5W PMX 1 GM in DEXTROSE/WATER 1 100ML.BAG IVPB SCH ×3 (11:25→14:22)
[2016-10-20] MEDS: KETOROLAC 30 MG/ML 1 ML VIAL IVP PRN (11:41)
[2016-10-20] MEDS: ONDANSETRON 4 MG/2 ML VIAL IVP PRN (11:41)
[2016-10-20] MEDS: PREGABALIN 75 MG CAP PO SCH ×2 (12:43→21:25)
[2016-10-20] MEDS: PIPERACILLIN-TAZOBACTAM 3.375 GM in DEXTROSE/WATER 1 50ML.BAG IVPB SCH ×2 (12:45→17:23)
[2016-10-20] MEDS: MULTIVITAMINS, THERA 1 EACH TAB PO SCH (12:59)
--- NOTE | 2016-10-20 14:38 | P.HPIM ---
History of Present Illness H&P Date: 10/20/16 Chief Complaint: Left flank pain Patient is a 51-year-old female patient of Dr. Juana Garcia who presented to [facility] emergency room due to left flank pain, That has been present for about 1 week prior to presentation. She was evaluated in the emergency room and diagnosed with urinary tract infection, she was started on IV Levaquin and was admitted to medical floor, subsequently patient had episodes of hypotension blood pressure was down to 80/ 40 she received 2 fluid boluses of 500 mL normal saline each over 1 hour blood pressure failed to improve and patient was transferred to intensive care unit for further management of hypotension. IV Zosyn was added to her medication regimen. Past Medical History Past Medical History: CVA/TIA, Fibromyalgia, GERD/Reflux, Hyperlipidemia, Hypertension, Neurologic Disorder, Seizure Disorder Additional Past Medical History / Comment(s): LAST SEIZURE 12/2015,severe migraines from brain aneurysm, TIA, states x6, LEFT ARM WEAKNESS, NEUROPATHY MATT LEGS, memory loss , occ vertigo. History of Any Multi-Drug Resistant Organisms: None Reported Past Surgical History: Appendectomy, Cholecystectomy, Tonsillectomy, Uterine Ablation Additional Past Surgical History / Comment(s): r lung surgery top portion lung removed, (STATES R/T FUNGUS) Has implanted TENS unit in back of head WITH BATTERY PACK IN BACK; surgical revision done by Dr. Linton in September 2013, "brain sx for ganeshs has a coil" Past Anesthesia/Blood Transfusion Reactions: No Reported Reaction Additional Past Anesthesia/Blood Transfusion Reaction / Comment(s): STATES VERY HARD IV START, Smoking Status: Current every day smoker - Past Family History Father Family Medical History: Liver Disease Additional Family Medical History / Comment(s): ALCOHOLIC CIRRHOISIS Mother Family Medical History: Cancer Additional Family Medical History / Comment(s): COLON Brother(s) Family Medical History: Cancer Additional Family Medical History / Comment(s): COLON Medications and Allergies Home Medications Medication Instructions Recorded Confirmed Type Cetirizine HCl 10 mg PO DAILY 09/07/13 10/19/16 History Dicyclomine [Bentyl] 10 mg PO BID 09/07/13 10/19/16 History Hydrochlorothiazide [Hydrodiuril] 25 mg PO DAILY 09/07/13 10/19/16 History Ibuprofen [Motrin] 800 mg PO Q6HR PRN 09/07/13 10/19/16 History LORazepam [Ativan] 0.5 mg PO BID PRN 09/07/13 10/19/16 History Multivitamins, Thera [Multivitamin] 1 tab PO DAILY 09/07/13 10/19/16 History Ondansetron [Zofran ODT] 8 mg PO DAILY PRN 09/07/13 10/19/16 History Ranitidine HCl [Zantac] 150 mg PO BID 09/07/13 10/19/16 History Clopidogrel [Plavix] 75 mg PO DAILY 02/16/14 10/19/16 History Benazepril HCl [Lotensin] 20 mg PO DAILY 10/09/14 10/19/16 History Cyclobenzaprine [Flexeril] 10 mg PO HS 10/09/14 10/19/16 History Divalproex [Depakote] 1,000 mg PO BID 10/09/14 10/19/16 History levETIRAcetam [Keppra] 1,000 mg PO BID 10/09/14 10/19/16 History Gemfibrozil [Lopid] 600 mg PO AC-BID 07/07/16 10/19/16 History Aspirin 81 mg PO DAILY 10/19/16 10/19/16 History Ergocalciferol (Vitamin D2) 50,000 unit PO Q30D 10/19/16 10/19/16 History [Vitamin D2] HYDROcodone/APAP 7.5-325MG [[place] 1 tab PO QID PRN 10/19/16 10/19/16 History 7.5] Omeprazole [PriLOSEC] 10 mg PO DAILY 10/19/16 10/19/16 History Pregabalin [Lyrica] 75 mg PO BID 10/19/16 10/19/16 History Sulfamethox-Tmp 800-160Mg [Bactrim 1 tab PO Q12HR 10/19/16 10/19/16 History DS 800-160 mg] Allergies Allergy/AdvReac Type Severity Reaction Status Date / Time naratriptan HCl [From Amerge] Allergy Unknown Verified 10/19/16 12:43 Tuwkkkr-Vqd-Mbx Reductase Allergy Rash/Hives Verified 10/19/16 12:43 Inhibitor migraine medications AdvReac causes Uncoded 10/19/16 12:26 seizures Physical Exam Vitals: Vital Signs Temp Pulse Pulse Resp BP BP BP 10/20/16 13:30 98.0 F 82 16 91/48 10/20/16 13:00 89 18 107/56 10/20/16 12:30 85 99/56 10/20/16 12:00 83 87 96/55 10/20/16 11:30 81 20 98/64 10/20/16 11:00 97.9 F 85 20 83/59 10/20/16 10:30 81 16 91/58 10/20/16 10:00 85 17 93/58 10/20/16 09:30 85 17 81/54 10/20/16 09:00 91 25 H 81/47 10/20/16 08:30 88 13 99/56 10/20/16 08:00 90 64 H 99/56 10/20/16 07:30 85 21 10/20/16 07:00 79 22 87/57 10/20/16 06:30 80 15 78/48 10/20/16 06:10 85 17 87/63 10/20/16 06:00 84 18 94/57 10/20/16 05:50 82 12 93/60 10/20/16 05:40 79 13 90/58 10/20/16 05:36 98.4 F 80 12 109/71 10/20/16 04:35 76/52 10/20/16 03:00 80/48 80/49 10/20/16 00:38 99/50 10/20/16 00:00 85 18 10/19/16 23:00 84/49 82/50 10/19/16 22:51 98.1 F 85 18 91/51 10/19/16 17:03 18 10/19/16 15:36 97.9 F 87 18 96/55 Pulse Ox 10/20/16 13:30 97 10/20/16 13:00 93 L 10/20/16 12:30 97 10/20/16 12:00 97 10/20/16 11:30 96 10/20/16 11:00 97 10/20/16 10:30 94 L 10/20/16 10:00 96 10/20/16 09:30 91 L 10/20/16 09:00 98 10/20/16 08:30 96 10/20/16 08:00 99 10/20/16 07:30 97 10/20/16 07:00 94 L 10/20/16 06:30 95 10/20/16 06:10 93 L 10/20/16 06:00 93 L 10/20/16 05:50 95 10/20/16 05:40 96 10/20/16 05:36 97 10/20/16 04:35 10/20/16 03:00 10/20/16 00:38 10/20/16 00:00 10/19/16 23:00 10/19/16 22:51 94 L 10/19/16 17:03 10/19/16 15:36 99 Intake and Output 10/19/16 10/20/16 10/20/16 22:59 06:59 14:59 Intake Total 3087 236 2572 Output Total 300 850 Balance 1930 -180 1290 Intake: IV 120 1600 Sodium Chloride 0.9% 1, 120 480 000 ml @ 120 mls/hr IV . Q8H20M [facility] Rx#:[id number] Sodium Chloride 0.9% 1, 1120 000 ml @ 999 mls/hr IV . Q1H1M ONE Rx#:[id number] Intake, IV Titration 1930 300 Amount Magnesium Sulfate-D5w Pmx 300 1 gm In Dextrose/Water 1 100ml.bag @ 100 mls/hr IVPB Q1H [facility] Rx#: [id number] Sodium Chloride 0.9% 1, 1430 000 ml @ 120 mls/hr IV . Q8H20M [facility] Rx#:[id number] Sodium Chloride 0.9% 500 500 ml @ 999 mls/hr IV .Q31M ONE Rx#:[id number] Oral 240 Output: Urine 300 850 Other: Voiding Method Toilet Toilet Indwelling Catheter # Voids 3 Weight 61.689 kg Patient Weight 10/21/16 06:59 Weight 61.689 kg In general patient is alert and oriented 3 in no apparent distress HEENT head normocephalic and atraumatic Neck is supple no JVD no goiter no lymphadenopathy Chest exam reveals a few scattered crackles no wheezing Cardiac exam reveals regular heart sounds S1 and S2 no gallops no murmurs Abdomen is soft with mild tenderness in the left lower lobe, no organomegaly no palpable masses Extremity examination reveals no edema no cyanosis or clubbing Results CBC & Chem 7: 10/20/16 06:42 10/20/16 06:42 Labs: Abnormal Lab Results - Last 24 Hours (Table) 10/20/16 10/20/16 Range/Units 06:42 06:42 RBC 2.96 L (3.80-5.40) m/uL Hgb 9.2 L D (11.4-16.0) gm/dL Hct 27.0 L (34.0-46.0) % Sodium 135 L (137-145) mmol/L Chloride 110 H (98-107) mmol/L Carbon Dioxide 20 L (22-30) mmol/L BUN 6 L (7-17) mg/dL Calcium 7.1 L (8.4-10.2) mg/dL Magnesium 1.4 L (1.6-2.3) mg/dL Microbiology - Last 24 Hours (Table) 10/19/16 13:10 Urine Culture - Preliminary Urine,Clean Catch Thrombosis Risk Factor Assmnt - Choose All That Apply Each Factor Represents 1 point: Abnormal pulmonary function (COPD), Age 41-60 years Other Risk Factors: No Other congenital or acquired thrombophilia - If yes, enter type in comment: No Thrombosis Risk Factor Assessment Total Risk Factor Score: 2 Thrombosis Risk Factor Assessment Level: Low Risk Assessment and Plan Plan: #1 sepsis, with septic shock #2 urinary tract infection #3 hypotension requiring multiple fluid boluses #4 tobacco use At this time patient is admitted to intensive care unit she is maintained on IV fluid, IV antibiotic Levaquin and Zosyn Continue was current management at this time will monitor in ICU for 24 more hours Urine culture is pending
[2016-10-20] MEDS: LEVOFLOXACIN 750MG-D5W PMX 750 MG in DEXTROSE/WATER 1 150ML.BAG IVPB SCH (16:04)
[2016-10-20] MEDS: LORazepam 0.5 MG TAB PO PRN (21:26)
[2016-10-20] MEDS: CYCLOBENZAPRINE 10 MG TAB PO SCH (21:29)
[2016-10-21] MEDS: HEPARIN SODIUM,PORCINE 5,000 UNIT/ML 1 ML VIAL SQ SCH ×4 (00:19→23:10)
[2016-10-21] MEDS: PIPERACILLIN-TAZOBACTAM 3.375 GM in DEXTROSE/WATER 1 50ML.BAG IVPB SCH ×3 (02:04→17:27)
[2016-10-21] MEDS: HYDROmorphone 1 MG/ML 1 ML SYRINGE IV PRN ×5 (02:04→21:42)
[2016-10-21 04:43] LABS: Basophils % (A) 0 %; CH 30.1; CHCM 33.5; Eosinophils # (A) 0.1 k/uL (0-0.7); Eosinophils % (A) 2 %; HCT 28.2 % (34.0-46.0); HDW 2.31; HGB 9.5 gm/dL (11.4-16.0); Luc % (Auto) 2; Lymphocytes % (A) 23 %; MCH 30.3 pg (25.0-35.0); MCHC 33.6 g/dL (31.0-37.0); MCV 90.1 fL (80.0-100.0); Mean Platelet Volume 6.7; Monocytes # (A) 0.6 k/uL (0-1.0); Monocytes % (A) 6 %; Neutrophils % (A) 67 %; RBC 3.13 m/uL (3.80-5.40); RDW 12.7 % (11.5-15.5); WBC (Perox) 9.51
[2016-10-21 04:57] LABS: Anion Gap 5 mmol/L; Blood Urea Nitrogen 3 mg/dL (7-17); Calcium 7.6 mg/dL (8.4-10.2); Carbon Dioxide 21 mmol/L (22-30); Chloride 112 mmol/L (98-107); Glucose 84 mg/dL (74-99); Magnesium 1.8 mg/dL (1.6-2.3); Non-African American GFR(MDRD) >60 (>60 ml/min/1.73 sqM); Phosphorous 2.4 mg/dL (2.5-4.5); Potassium 4.3 mmol/L (3.5-5.1); Sodium 138 mmol/L (137-145)
[2016-10-21] MEDS ORDERED: MAGNESIUM SULFATE-D5W PMX 1 GM in DEXTROSE/WATER 1 100ML.BAG IVPB SCH (05:45)
[2016-10-21] MEDS: SODIUM CHLORIDE 0.9% 1,000 ML IV SCH ×4 (06:11→21:37)
[2016-10-21] MEDS: MAGNESIUM SULFATE-D5W PMX 1 GM in DEXTROSE/WATER 1 100ML.BAG IVPB SCH ×2 (06:11→08:47)
[2016-10-21] MEDS: ONDANSETRON 4 MG/2 ML VIAL IVP PRN ×2 (06:12→17:57)
[2016-10-21] MEDS: GEMFIBROZIL 600 MG TAB PO SCH ×2 (08:48→16:39)
[2016-10-21] MEDS: ASPIRIN 81 MG CHEW PO SCH (08:48)
[2016-10-21] MEDS: CLOPIDOGREL 75 MG TAB PO SCH (08:48)
[2016-10-21] MEDS: DICYCLOMINE 10 MG CAP PO SCH ×2 (08:49→20:29)
[2016-10-21] MEDS: levETIRAcetam 500 MG TAB PO SCH ×2 (08:49→20:28)
[2016-10-21] MEDS: DIVALPROEX 500 MG TABLET.DR PO SCH ×2 (08:49→20:29)
[2016-10-21] MEDS: FAMOTIDINE 20 MG TAB PO SCH ×2 (08:49→20:28)
[2016-10-21] MEDS: LORATADINE 10 MG TAB PO SCH (08:50)
[2016-10-21] MEDS: PREGABALIN 75 MG CAP PO SCH ×2 (08:52→21:33)
[2016-10-21] MEDS: KETOROLAC 30 MG/ML 1 ML VIAL IVP PRN (08:56)
--- NOTE | 2016-10-21 10:04 | P.PN ---
Subjective Patient is a 51-year-old female patient of Dr. Juana Garcia who presented to [facility] emergency room due to left flank pain, That has been present for about 1 week prior to presentation. She was evaluated in the emergency room and diagnosed with urinary tract infection, she was started on IV Levaquin and was admitted to medical floor, subsequently patient had episodes of hypotension blood pressure was down to 80/ 40 she received 2 fluid boluses of 500 mL normal saline each over 1 hour blood pressure failed to improve and patient was transferred to intensive care unit for further management of hypotension. IV Zosyn was added to her medication regimen. Objective - Vital Signs Vital signs: Vital Signs Temp 97.8 F 10/21/16 08:00 Pulse 83 10/21/16 09:00 Resp 31 H 10/21/16 09:00 BP 118/70 10/21/16 09:00 Pulse Ox 97 10/21/16 09:00 Intake & Output 10/20/16 10/21/16 10/21/16 18:59 06:59 18:59 Intake Total 3300 1710.0 340 Output Total 1700 1865 200 Balance 1600 -155.0 140 Weight 61.689 kg 67.5 kg Intake: IV 1960 1710.0 340 Magnesium Sulfate-D5w Pmx 100 100 1 gm In Dextrose/Water 1 100ml.bag @ 100 mls/hr IVPB Q1H [facility] Rx#: [id number] Piperacillin-Tazobactam 3 50.0 .375 gm In Dextrose/Water 1 50ml.bag @ 12.5 mls/hr IVPB Q8H [facility] Rx#: [id number] Sodium Chloride 0.9% 1, 840 1560 240 000 ml @ 120 mls/hr IV . Q8H20M [facility] Rx#:[id number] Sodium Chloride 0.9% 1, 1120 000 ml @ 999 mls/hr IV . Q1H1M [facility] Rx#:[id number] Intake, IV Titration 400 Amount Magnesium Sulfate-D5w Pmx 400 1 gm In Dextrose/Water 1 100ml.bag @ 100 mls/hr IVPB Q1H [facility] Rx#: [id number] Oral 940 Output: Urine 1700 1865 200 Other: Voiding Method Indwelling Catheter Indwelling Catheter - Exam In general patient is alert and oriented 3 in no apparent distress HEENT head normocephalic and atraumatic Neck is supple no JVD no goiter no lymphadenopathy Chest exam reveals a few scattered crackles no wheezing Cardiac exam reveals regular heart sounds S1 and S2 no gallops no murmurs Abdomen is soft with mild tenderness in the left lower lobe, no organomegaly no palpable masses Extremity examination reveals no edema no cyanosis or clubbing - Labs CBC & Chem 7: 10/21/16 03:51 10/21/16 03:51 Labs: Abnormal Lab Results - Last 24 Hours (Table) 10/21/16 10/21/16 Range/Units 03:51 03:51 RBC 3.13 L (3.80-5.40) m/uL Hgb 9.5 L (11.4-16.0) gm/dL Hct 28.2 L (34.0-46.0) % Chloride 112 H (98-107) mmol/L Carbon Dioxide 21 L (22-30) mmol/L BUN 3 L (7-17) mg/dL Creatinine 0.50 L (0.52-1.04) mg/dL Calcium 7.6 L (8.4-10.2) mg/dL Phosphorus 2.4 L (2.5-4.5) mg/dL Assessment and Plan Plan: #1 sepsis, with septic shock, requiring multiple fluid boluses patient was monitored in ICU there was no need to use vasopressors today blood pressure is back to normal she will be transferred out of ICU #2 urinary tract infection, improving to maintained on IV Levaquin and IV Zosyn , urine culture is still pending #3 hypotension requiring multiple fluid boluses, now blood pressure normalizing #4 tobacco use, patient was counseled in length during this admission regarding smoking cessation #5 chronic back pain maintained on Candia at home at this time will resume Candia At this time patient is admitted to intensive care unit she is maintained on IV fluid, IV antibiotic Levaquin and Zosyn Continue was current management at this time will monitor in ICU for 24 more hours Urine culture is pending
[2016-10-21] MEDS: MULTIVITAMINS, THERA 1 EACH TAB PO SCH (11:31)
[2016-10-21] MEDS: LEVOFLOXACIN 750MG-D5W PMX 750 MG in DEXTROSE/WATER 1 150ML.BAG IVPB SCH ×2 (12:52→14:15)
[2016-10-21] MEDS: HYDROcodone/APAP 7.5-325MG 1 EACH TAB PO PRN ×2 (13:04→18:43)
--- NOTE | 2016-10-21 13:05 | P.PN ---
Subjective Principal diagnosis: Acute pyelonephritis and sepsis. This is a 51-year-old female, with history of multiple medical problems including hypertension, fibromyalgia, seizure disorder, previous TIA, migraine cephalgia, GERD and acid reflux, as well as history of hyperlipidemia. Patient was seen in the ER yesterday with a one-week history of left flank pain. Pain has been getting much worse over the last 2 days. She was also noticing foul odor from her urine. Patient also complained of some chills but no documented fever. The day prior, patient was diagnosed as having urinary tract infection, and she was started on antibiotics. However considering the severity of the pain, patient was seen in the ER, and at that point she was having intermittent episodes of vomiting. Workup in the ER included a CT of the abdomen and pelvis , and it showed vague heterogeneous irregular area of non-enhancement in the medial left kidney felt to be most likely secondary to acute pyelonephritis. Her urine clearly showed evidence of pyuria and bacteriuria. Patient was also noted to be hypotensive, but she responded to 2 L of fluid boluses given in the ER and in the ICU, patient was kept in the ICU, and I was asked to see her on consultation. Patient did not require any pressors. During my evaluation, patient continued to have some left flank pain, but improved. And she was already started on antibiotics in the form of Levaquin and Zosyn. Cultures are pending. Labs showed leukocytosis with WBC count of 21.7. Basic metabolic profile was relatively normal. Renal profile was normal. Lactic acid was normal Reevaluated today on 10/21/2016, patient is doing much better, hardly any pain, no episodes of hypotension overnight, no fever, no chills, no dysuria and no frequency no urgency, no nausea, no vomiting. Patient made a significant improvement over the last 24 hours. CBC is normal. Electrolytes are normal. Renal profile is normal. Objective - Vital Signs Vital signs: Vital Signs Temp 97.8 F 10/21/16 08:00 Pulse 85 10/21/16 10:00 Resp 26 H 10/21/16 10:00 BP 118/70 10/21/16 10:00 Pulse Ox 96 10/21/16 10:00 Intake & Output 10/20/16 10/21/16 10/21/16 18:59 06:59 18:59 Intake Total 3300 1710.0 460 Output Total 1700 1865 450 Balance 1600 -155.0 10 Weight 61.689 kg 67.5 kg Intake: IV 1960 1710.0 460 Magnesium Sulfate-D5w Pmx 100 100 1 gm In Dextrose/Water 1 100ml.bag @ 100 mls/hr IVPB Q1H [facility] Rx#: [id number] Piperacillin-Tazobactam 3 50.0 .375 gm In Dextrose/Water 1 50ml.bag @ 12.5 mls/hr IVPB Q8H [facility] Rx#: [id number] Sodium Chloride 0.9% 1, 840 1560 360 000 ml @ 120 mls/hr IV . Q8H20M [facility] Rx#:[id number] Sodium Chloride 0.9% 1, 1120 000 ml @ 999 mls/hr IV . Q1H1M [facility] Rx#:[id number] Intake, IV Titration 400 Amount Magnesium Sulfate-D5w Pmx 400 1 gm In Dextrose/Water 1 100ml.bag @ 100 mls/hr IVPB Q1H [facility] Rx#: [id number] Oral 940 Output: Urine 1700 1865 450 Other: Voiding Method Indwelling Catheter Indwelling Catheter Indwelling Catheter - Exam Physical Exam: Revealed a 51-year-old female in no distress. HEENT:[Neck is supple.] [No neck masses.] [No thyromegaly.] [No JVD.] Chest: [Clear throughout, no crackles, no rhonchi, no wheezes.] Cardiac Exam: [Normal S1 and S2, no S3 gallop, no murmur.] Abdomen: [Soft nontender no megaly no rebound no guarding. Extremities: [No clubbing, no edema, no cyanosis.] Neurological Exam: [No focal neurologic deficit.] - Labs CBC & Chem 7: 10/21/16 03:51 10/21/16 03:51 Labs: Abnormal Lab Results - Last 24 Hours (Table) 10/21/16 10/21/16 Range/Units 03:51 03:51 RBC 3.13 L (3.80-5.40) m/uL Hgb 9.5 L (11.4-16.0) gm/dL Hct 28.2 L (34.0-46.0) % Chloride 112 H (98-107) mmol/L Carbon Dioxide 21 L (22-30) mmol/L BUN 3 L (7-17) mg/dL Creatinine 0.50 L (0.52-1.04) mg/dL Calcium 7.6 L (8.4-10.2) mg/dL Phosphorus 2.4 L (2.5-4.5) mg/dL Assessment and Plan Plan: Impression: 1 acute pyelonephritis, suspect sepsis secondary to pyelonephritis and urinary tract infection. 2 history of multiple comorbidities including fibromyalgia, seizure disorder, chronic pain syndrome, TIA, severe migraine cephalgia, history of GERD, history of hypertension and hyperlipidemia. Recommendation: Continue IV fluids, antibiotics in the form of Levaquin and Zosyn, patient will be transferred out of the ICU to a regular medical floor, and we'll continue to follow. Antibiotics will be adjusted based on the final cultures. Discharge planning likely early next week. Time with Patient: Less than 30
[2016-10-21] MEDS: CYCLOBENZAPRINE 10 MG TAB PO SCH (20:29)
[2016-10-22] MEDS: PIPERACILLIN-TAZOBACTAM 3.375 GM in DEXTROSE/WATER 1 50ML.BAG IVPB SCH ×2 (01:46→09:15)
[2016-10-22] MEDS: HYDROcodone/APAP 7.5-325MG 1 EACH TAB PO PRN ×3 (01:54→12:21)
[2016-10-22] MEDS: SODIUM CHLORIDE 0.9% 1,000 ML IV SCH (05:37)
[2016-10-22 07:31] LABS: Basophils % (A) 0 %; CH 30.2; CHCM 34.3; Eosinophils # (A) 0.1 k/uL (0-0.7); Eosinophils % (A) 1 %; HCT 27.4 % (34.0-46.0); HDW 2.45; HGB 9.6 gm/dL (11.4-16.0); Luc # (Auto) 0.14; Luc % (Auto) 2; Lymphocytes # (A) 1.9 k/uL (1.0-4.8); Lymphocytes % (A) 23 %; MCH 30.9 pg (25.0-35.0); MCV 88.3 fL (80.0-100.0); Mean Platelet Volume 6.7; Monocytes # (A) 0.5 k/uL (0-1.0); Monocytes % (A) 6 %; Neutrophils # (A) 5.5 k/uL (1.3-7.7); Neutrophils % (A) 68 %; RBC 3.11 m/uL (3.80-5.40); RDW 12.5 % (11.5-15.5); WBC 8.1 k/uL (3.8-10.6); WBC (Perox) 8.42
[2016-10-22 07:47] LABS: ALT 26 U/L (9-52); AST 16 U/L (14-36); Alkaline Phosphatase 85 U/L (38-126); Anion Gap 6 mmol/L; Blood Urea Nitrogen <2 mg/dL (7-17); Calcium 7.9 mg/dL (8.4-10.2); Carbon Dioxide 23 mmol/L (22-30); Chloride 109 mmol/L (98-107); Glucose 84 mg/dL (74-99); Magnesium 1.7 mg/dL (1.6-2.3); Non-African American GFR(MDRD) >60 (>60 ml/min/1.73 sqM); Phosphorous 2.7 mg/dL (2.5-4.5); Potassium 3.9 mmol/L (3.5-5.1); Sodium 138 mmol/L (137-145); Total Bilirubin 0.1 mg/dL (0.2-1.3); Total Protein 5.2 g/dL (6.3-8.2)
[2016-10-22 07:51] VITALS: BP 129/73; PULSE 85; RESP 16; TEMP 98.5
[2016-10-22] MEDS: levETIRAcetam 500 MG TAB PO SCH (08:14)
[2016-10-22] MEDS: GEMFIBROZIL 600 MG TAB PO SCH (08:14)
[2016-10-22] MEDS: DIVALPROEX 500 MG TABLET.DR PO SCH (08:14)
[2016-10-22] MEDS: HEPARIN SODIUM,PORCINE 5,000 UNIT/ML 1 ML VIAL SQ SCH (08:14)
[2016-10-22] MEDS: PREGABALIN 75 MG CAP PO SCH (08:14)
[2016-10-22] MEDS: DICYCLOMINE 10 MG CAP PO SCH (08:14)
[2016-10-22] MEDS: ASPIRIN 81 MG CHEW PO SCH (08:14)
[2016-10-22] MEDS: CLOPIDOGREL 75 MG TAB PO SCH (08:14)
[2016-10-22] MEDS: MULTIVITAMINS, THERA 1 EACH TAB PO SCH (08:14)
[2016-10-22] MEDS: LORATADINE 10 MG TAB PO SCH (08:14)
[2016-10-22] MEDS: FAMOTIDINE 20 MG TAB PO SCH (08:14)
[2016-10-22] MEDS: HYDROmorphone 1 MG/ML 1 ML SYRINGE IV PRN (08:26)
[2016-10-22] MEDS: LEVOFLOXACIN 750MG-D5W PMX 750 MG in DEXTROSE/WATER 1 150ML.BAG IVPB SCH (13:01)
--- NOTE | 2016-10-22 14:01 | P.PN ---
Subjective Principal diagnosis: Acute pyelonephritis and sepsis. This is a 51-year-old female, with history of multiple medical problems including hypertension, fibromyalgia, seizure disorder, previous TIA, migraine cephalgia, GERD and acid reflux, as well as history of hyperlipidemia. Patient was seen in the ER yesterday with a one-week history of left flank pain. Pain has been getting much worse over the last 2 days. She was also noticing foul odor from her urine. Patient also complained of some chills but no documented fever. The day prior, patient was diagnosed as having urinary tract infection, and she was started on antibiotics. However considering the severity of the pain, patient was seen in the ER, and at that point she was having intermittent episodes of vomiting. Workup in the ER included a CT of the abdomen and pelvis , and it showed vague heterogeneous irregular area of non-enhancement in the medial left kidney felt to be most likely secondary to acute pyelonephritis. Her urine clearly showed evidence of pyuria and bacteriuria. Patient was also noted to be hypotensive, but she responded to 2 L of fluid boluses given in the ER and in the ICU, patient was kept in the ICU, and I was asked to see her on consultation. Patient did not require any pressors. During my evaluation, patient continued to have some left flank pain, but improved. And she was already started on antibiotics in the form of Levaquin and Zosyn. Cultures are pending. Labs showed leukocytosis with WBC count of 21.7. Basic metabolic profile was relatively normal. Renal profile was normal. Lactic acid was normal Reevaluated today on 10/21/2016, patient is doing much better, hardly any pain, no episodes of hypotension overnight, no fever, no chills, no dysuria and no frequency no urgency, no nausea, no vomiting. Patient made a significant improvement over the last 24 hours. CBC is normal. Electrolytes are normal. Renal profile is normal. Patient was reevaluated today on 10/22/2016, doing great, asymptomatic, back to her baseline, no abdominal pain, no nausea, no fever, no chills, and no dysuria. Objective - Vital Signs Vital signs: Vital Signs Temp 98.5 F 10/22/16 07:50 Pulse 85 10/22/16 07:50 Resp 16 10/22/16 07:50 BP 129/73 10/22/16 07:50 Pulse Ox 95 10/22/16 07:50 Intake & Output 10/21/16 10/22/16 10/22/16 18:59 06:59 18:59 Intake Total 460 500 Output Total 450 Balance 10 500 Weight 70 kg Intake: IV 460 Magnesium Sulfate-D5w Pmx 100 1 gm In Dextrose/Water 1 100ml.bag @ 100 mls/hr IVPB Q1H [facility] Rx#: [id number] Sodium Chloride 0.9% 1, 360 000 ml @ 120 mls/hr IV . Q8H20M [facility] Rx#:[id number] Oral 500 Output: Urine 450 Other: Voiding Method Indwelling Catheter Toilet Toilet # Voids 1 5 # Bowel Movements 0 - Exam Physical Exam: Revealed a 51-year-old female in no distress. HEENT:[Neck is supple.] [No neck masses.] [No thyromegaly.] [No JVD.] Chest: [Clear throughout, no crackles, no rhonchi, no wheezes.] Cardiac Exam: [Normal S1 and S2, no S3 gallop, no murmur.] Abdomen: [Soft nontender no megaly no rebound no guarding. Extremities: [No clubbing, no edema, no cyanosis.] Neurological Exam: [No focal neurologic deficit.] - Labs CBC & Chem 7: 10/22/16 06:53 10/22/16 06:53 Labs: Abnormal Lab Results - Last 24 Hours (Table) 10/22/16 10/22/16 Range/Units 06:53 06:53 RBC 3.11 L (3.80-5.40) m/uL Hgb 9.6 L (11.4-16.0) gm/dL Hct 27.4 L (34.0-46.0) % Chloride 109 H (98-107) mmol/L BUN <2 L (7-17) mg/dL Creatinine 0.50 L (0.52-1.04) mg/dL Calcium 7.9 L (8.4-10.2) mg/dL Total Bilirubin 0.1 L (0.2-1.3) mg/dL Total Protein 5.2 L (6.3-8.2) g/dL Albumin 2.8 L (3.5-5.0) g/dL Microbiology - Last 24 Hours (Table) 10/19/16 13:10 Urine Culture - Final Urine,Clean Catch Escherichia coli Assessment and Plan Plan: Impression: 1 acute pyelonephritis, and sepsis 2 history of multiple comorbidities including fibromyalgia, seizure disorder, chronic pain syndrome, TIA, severe migraine cephalgia, history of GERD, history of hypertension and hyperlipidemia. Recommendation: Continue IV fluids, antibiotics , patient can be switched to oral Levaquin, I will discontinue Zosyn, consider discharge planning today or in the next 24 hours. Time with Patient: Less than 30
--- NOTE | 2016-10-22 14:36 | P.DS ---
Providers Date of admission: 10/19/16 15:48 Expected date of discharge: 10/22/16 Attending physician: Micah West Consults: 10/20/16 05:05 Consult Physician Stat Consulting Provider: Sade Heredia Reason/Comments: hypotension Do you want consulting provider notified?: Yes Primary care physician: Jauna Garcia [facility] Course: Diagnoses on discharge: #1 sepsis, with septic shock #2 urinary tract infection #3 hypotension requiring multiple fluid boluses #4 tobacco use Hospital course: Patient is a 51-year-old female patient of Dr. Juana Garcia who presented to [facility] emergency room due to left flank pain, That has been present for about 1 week prior to presentation. She was evaluated in the emergency room and diagnosed with urinary tract infection, she was started on IV Levaquin and was admitted to medical floor, subsequently patient had episodes of hypotension blood pressure was down to 80/ 40 she received 2 fluid boluses of 500 mL normal saline each over 1 hour blood pressure failed to improve and patient was transferred to intensive care unit for further management of hypotension. IV Zosyn was added to her medication regimen. Patient improved significantly, she was transferred out of intensive care unit, he was monitored on the medical floor and continued to improve, white blood count was back to normal patient was asymptomatic. She was switched to oral Levaquin and Zosyn was discontinued. She was discharged home on 10/22/2016 she will be followed by her primary care physician within one week Patient Condition at Discharge: Stable Plan - Discharge Summary New Discharge Prescriptions: New Levofloxacin [Levaquin] 500 mg PO DAILY #7 tab Continue Ibuprofen [Motrin] 800 mg PO Q6HR PRN PRN Reason: Pain Cetirizine HCl 10 mg PO DAILY Multivitamins, Thera [Multivitamin (formulary)] 1 tab PO DAILY LORazepam [Ativan] 0.5 mg PO BID PRN PRN Reason: Anxiety Dicyclomine [Bentyl] 10 mg PO BID Ranitidine HCl [Zantac] 150 mg PO BID Clopidogrel [Plavix] 75 mg PO DAILY levETIRAcetam [Keppra] 1,000 mg PO BID Divalproex [Depakote] 1,000 mg PO BID Benazepril HCl [Lotensin] 20 mg PO DAILY Cyclobenzaprine [Flexeril] 10 mg PO HS Gemfibrozil [Lopid] 600 mg PO AC-BID Aspirin 81 mg PO DAILY HYDROcodone/APAP 7.5-325MG [[place] 7.5-325] 1 tab PO QID PRN PRN Reason: Pain Omeprazole [PriLOSEC] 10 mg PO DAILY Ergocalciferol (Vitamin D2) [Vitamin D2] 50,000 unit PO Q30D Pregabalin [Lyrica] 75 mg PO BID Discontinued Hydrochlorothiazide [Hydrodiuril] 25 mg PO DAILY Ondansetron [Zofran ODT] 8 mg PO DAILY PRN PRN Reason: Nausea Sulfamethox-Tmp 800-160Mg [Bactrim DS 800-160 mg] 1 tab PO Q12HR Discharge Medication List Cetirizine HCl 10 mg PO DAILY 09/07/13 [History] Dicyclomine [Bentyl] 10 mg PO BID 09/07/13 [History] Ibuprofen [Motrin] 800 mg PO Q6HR PRN 09/07/13 [History] LORazepam [Ativan] 0.5 mg PO BID PRN 09/07/13 [History] Multivitamins, Thera [Multivitamin (formulary)] 1 tab PO DAILY 09/07/13 [History ] Ranitidine HCl [Zantac] 150 mg PO BID 09/07/13 [History] Clopidogrel [Plavix] 75 mg PO DAILY 02/16/14 [History] Benazepril HCl [Lotensin] 20 mg PO DAILY 10/09/14 [History] Cyclobenzaprine [Flexeril] 10 mg PO HS 10/09/14 [History] Divalproex [Depakote] 1,000 mg PO BID 10/09/14 [History] levETIRAcetam [Keppra] 1,000 mg PO BID 10/09/14 [History] Gemfibrozil [Lopid] 600 mg PO AC-BID 07/07/16 [History] Aspirin 81 mg PO DAILY 10/19/16 [History] Ergocalciferol (Vitamin D2) [Vitamin D2] 50,000 unit PO Q30D 10/19/16 [History] HYDROcodone/APAP 7.5-325MG [[place] 7.5-325] 1 tab PO QID PRN 10/19/16 [History] Omeprazole [PriLOSEC] 10 mg PO DAILY 10/19/16 [History] Pregabalin [Lyrica] 75 mg PO BID 10/19/16 [History] Levofloxacin [Levaquin] 500 mg PO DAILY #7 tab 10/22/16 [Rx] Follow up Appointment(s)/Referral(s): Juana Garcia MD [Primary Care Provider] - 1-2 days
[2016-10-23] MEDS ORDERED: LEVOFLOXACIN 750 MG TAB PO SCH (13:00)
== END 2016-10-22 14:56 | disposition home or self-care (01) | DRG 871 ==
LOC: EC 12:07 → 5MS5E 15:48 → 6ICU 10-20 05:35 → 4MS4W 10-21 11:32
PROVIDERS: ADMIT Internal Medicine; ATTEND Internal Medicine
DX: A41.9 Sepsis, unspecified organism (principal); R65.21 Severe sepsis with septic shock; N10 Acute pyelonephritis; N39.0 Urinary tract infection, site not specified; I10 Essential (primary) hypertension; E78.5 Hyperlipidemia, unspecified; F41.0 Panic disorder [episodic paroxysmal anxiety]; G40.909 Epilepsy, unspecified, not intractable, without status epilepticus; G89.4 Chronic pain syndrome; K21.9 Gastro-esophageal reflux disease without esophagitis; M79.7 Fibromyalgia; Z79.02 Long term (current) use of antithrombotics/antiplatelets; Z79.82 Long term (current) use of aspirin; Z79.899 Other long term (current) drug therapy; Z86.73 Personal history of transient ischemic attack (TIA), and cerebral infarction without residual deficits; M54.9 Dorsalgia, unspecified; Z72.0 Tobacco use
CPT/HCPCS: 36415; 74000; 74177; 80048; 80053; 81001; 82150; 83605; 83690; 83735; 84100; 85025; 85610; 85730; 87077; 87086; 87186; 96361; 96365; 96366; 96375; 96376; 99285

== ENCOUNTER 2016-10-31 12:54 | Emergency (ER) | payer MEDICARE, OTHER ==
[2016-10-31] MEDS ORDERED: KETOROLAC 30 MG/ML 1 ML VIAL IVP STA (13:30)
[2016-10-31] MEDS ORDERED: SODIUM CHLORIDE 0.9% 1,000 ML IV STA (13:30)
--- NOTE | 2016-10-31 13:31 | ED ---
General Adult HPI - General Chief complaint: Abdominal Pain Stated complaint: kidney infection-revisit Time Seen by Provider: 10/31/16 13:17 Source: patient, RN notes reviewed Mode of arrival: ambulatory Limitations: no limitations - History of Present Illness Initial comments: 51-year-old female presents to the emergency department with a chief complaint of left flank pain. Patient was recently diagnosed with a pyelonephritis she was admitted and discharged about a week ago. Patient states she continues have the pain she continued complaining with urination. Doctor and they sent her back for reevaluation. They state that there was abnormal and her lab work. Patient states she's on his pain so she was concerned. Patient denies any other symptoms at this time.Patient denies any recent fever, chills, shortness of breath, chest pain, nausea vomiting, numbness or tingling, dysuria or hematuria, constipation or diarrhea, headaches or visual changes, or any other current symptoms. - Related Data Home Medications Medication Instructions Recorded Confirmed Cetirizine HCl 10 mg PO DAILY 09/07/13 10/31/16 Dicyclomine [Bentyl] 10 mg PO BID 09/07/13 10/31/16 Ibuprofen [Motrin] 800 mg PO Q6HR PRN 09/07/13 10/31/16 LORazepam [Ativan] 0.5 mg PO BID PRN 09/07/13 10/31/16 Multivitamins, Thera [Multivitamin 1 tab PO DAILY 09/07/13 10/31/16 (formulary)] Ranitidine HCl [Zantac] 150 mg PO BID 09/07/13 10/31/16 Clopidogrel [Plavix] 75 mg PO DAILY 02/16/14 10/31/16 Cyclobenzaprine [Flexeril] 10 mg PO HS 10/09/14 10/31/16 Divalproex [Depakote] 1,000 mg PO BID 10/09/14 10/31/16 levETIRAcetam [Keppra] 1,000 mg PO BID 10/09/14 10/31/16 Gemfibrozil [Lopid] 600 mg PO AC-BID 07/07/16 10/31/16 Aspirin 81 mg PO DAILY 10/19/16 10/31/16 Ergocalciferol (Vitamin D2) 50,000 unit PO Q30D 10/19/16 10/31/16 [Vitamin D2] HYDROcodone/APAP 7.5-325MG [[place] 1 tab PO QID PRN 10/19/16 10/31/16 7.5-325] Omeprazole [PriLOSEC] 10 mg PO DAILY 10/19/16 10/31/16 Pregabalin [Lyrica] 75 mg PO BID 10/19/16 10/31/16 Norgestimate-Ethinyl Estradiol 1 tab PO DAILY 10/31/16 10/31/16 [Sprintec 28 Day Tablet] Allergies Allergy/AdvReac Type Severity Reaction Status Date / Time levofloxacin [From Levaquin] Allergy Swelling Verified 10/31/16 14:07 naratriptan HCl [From Amerge] Allergy Unknown Verified 10/31/16 14:07 Wcagrnu-Nft-Irp Reductase Allergy Rash/Hives Verified 10/31/16 14:07 Inhibitor migraine medications AdvReac causes Uncoded 10/31/16 13:02 seizures Review of Systems ROS Statement: Those systems with pertinent positive or pertinent negative responses have been documented in the HPI. ROS Other: All systems not noted in ROS Statement are negative. Past Medical History Past Medical History: CVA/TIA, Fibromyalgia, GERD/Reflux, Hyperlipidemia, Hypertension, Neurologic Disorder, Seizure Disorder Additional Past Medical History / Comment(s): LAST SEIZURE 12/2015,severe migraines from brain aneurysm, TIA, states x6, LEFT ARM WEAKNESS, NEUROPATHY MATT LEGS, memory loss , occ vertigo. History of Any Multi-Drug Resistant Organisms: None Reported Past Surgical History: Appendectomy, Cholecystectomy, Tonsillectomy, Uterine Ablation Additional Past Surgical History / Comment(s): r lung surgery top portion lung removed, (STATES R/T FUNGUS) Has implanted TENS unit in back of head WITH BATTERY PACK IN BACK; surgical revision done by Dr. Linton in September 2013, "brain sx for anueryms has a coil" Past Anesthesia/Blood Transfusion Reactions: No Reported Reaction Additional Past Anesthesia/Blood Transfusion Reaction / Comment(s): STATES VERY HARD IV START, Past Psychological History: Anxiety, Panic Disorder Smoking Status: Current every day smoker - Past Family History Father Family Medical History: Liver Disease Additional Family Medical History / Comment(s): ALCOHOLIC CIRRHOISIS Mother Family Medical History: Cancer Additional Family Medical History / Comment(s): COLON Brother(s) Family Medical History: Cancer Additional Family Medical History / Comment(s): COLON General Exam - General Exam Comments Initial Comments: General: The patient is awake and alert, in no distress, and does not appear acutely ill. Eye: Pupils are equal, round and reactive to light, extra-ocular movements are intact; there is normal conjunctiva bilaterally. No signs of icterus. Ears, nose, mouth and throat: There are moist mucous membranes and no oral lesions. Neck: The neck is supple, there is no tenderness. Cardiovascular: There is a regular rate and rhythm. No murmur, rub or gallop is appreciated. Respiratory: Lungs are clear to auscultation, respirations are non-labored, breath sounds are equal. No wheezes, stridor, rales, or rhonchi. Gastrointestinal: Soft, non-distended, non-tender abdomen without masses or organomegaly noted. There is no rebound or guarding present. Left sided CVA tenderness. Bowel sounds are unremarkable. Back: There is no tenderness to palpation in the midline. There is no obvious deformity. No rashes noted. Musculoskeletal: Normal ROM, no tenderness, There is no pedal edema. There is no calf tenderness or swelling. Sensation intact. Pulses equal bilaterally 2+. Neurological: CN II-XII intact, There are no obvious motor or sensory deficits. Coordination appears grossly intact. Speech is normal. Skin: Skin is warm and dry and no rashes or lesions are noted. Psychiatric: Cooperative, appropriate mood & affect, normal judgment. Limitations: no limitations Course Vital Signs 10/31/16 10/31/16 13:02 15:00 Temperature 98.3 F Pulse Rate 81 83 Respiratory 17 16 Rate Blood Pressure 117/74 124/65 O2 Sat by Pulse 97 100 Oximetry Medical Decision Making - Medical Decision Making 51-year-old female presents emergency department chief complaint of left-sided abdominal pain. This and laboratory Been reviewed and doesn't appear to be much improved since her previous admission. At this time we discussed the patient can continue outpatient follow-up. Discussed return parameters all patient's questions. She states that she understood and is given plan. This time she will be discharged home. - Lab Data Result diagrams: 10/31/16 14:05 10/31/16 14:05 Lab Results 10/31/16 10/31/16 10/31/16 Range/Units 14:05 14:05 14:05 WBC 11.6 H (3.8-10.6) k/uL RBC 4.56 (3.80-5.40) m/uL Hgb 14.1 D (11.4-16.0) gm/dL Hct 39.4 (34.0-46.0) % MCV 86.3 (80.0-100.0) fL MCH 30.9 (25.0-35.0) pg MCHC 35.9 (31.0-37.0) g/dL RDW 12.6 (11.5-15.5) % Plt Count 629 H (150-450) k/uL Neutrophils % 59 % Lymphocytes % 31 % Monocytes % 6 % Eosinophils % 1 % Basophils % 1 % Neutrophils # 6.8 (1.3-7.7) k/uL Lymphocytes # 3.6 (1.0-4.8) k/uL Monocytes # 0.7 (0-1.0) k/uL Eosinophils # 0.2 (0-0.7) k/uL Basophils # 0.1 (0-0.2) k/uL Sodium 134 L (137-145) mmol/L Potassium 3.9 (3.5-5.1) mmol/L Chloride 99 (98-107) mmol/L Carbon Dioxide 23 (22-30) mmol/L Anion Gap 12 mmol/L BUN 25 H (7-17) mg/dL Creatinine 0.60 (0.52-1.04) mg/dL Est GFR (MDRD) Af Amer >60 (>60 ml/min/1.73 sqM) Est GFR (MDRD) Non-Af >60 (>60 ml/min/1.73 sqM) Glucose 80 (74-99) mg/dL Calcium 9.6 (8.4-10.2) mg/dL Total Bilirubin 0.3 (0.2-1.3) mg/dL AST 28 (14-36) U/L ALT 48 (9-52) U/L Alkaline Phosphatase 92 (38-126) U/L Total Protein 7.3 (6.3-8.2) g/dL Albumin 4.4 (3.5-5.0) g/dL Urine Color Light Yellow Urine Appearance Clear (Clear) Urine pH 6.5 (5.0-8.0) Ur Specific [place] 1.011 (1.001-1.035) Urine Protein Negative (Negative) Urine Glucose (UA) Negative (Negative) Urine Ketones Negative (Negative) Urine Blood Negative (Negative) Urine Nitrite Negative (Negative) Urine Bilirubin Negative (Negative) Urine Urobilinogen <2.0 (<2.0) mg/dL Ur Leukocyte Esterase Negative (Negative) - Radiology Data Radiology results: report reviewed, image reviewed Disposition Clinical Impression: Left flank pain Disposition: HOME SELF-CARE Condition: Stable Instructions: Abdominal Pain (ED) Additional Instructions: Please use medication as discussed. Please follow up with family doctor if symptoms have not improved over the next two days. Please return to the emergency room if your symptoms increase or worsen or for any other concerns. Referrals: Juana Garcia MD [Primary Care Provider] - 1-2 days Time of Disposition: 15:59
[2016-10-31] MEDS ORDERED: ONDANSETRON 4 MG/2 ML VIAL IVP STA (14:14)
[2016-10-31 14:29] LABS: Basophils # (A) 0.1 k/uL (0-0.2); Basophils % (A) 1 %; CH 30.3; CHCM 35.2; Eosinophils # (A) 0.2 k/uL (0-0.7); Eosinophils % (A) 1 %; HCT 39.4 % (34.0-46.0); HDW 2.41; Luc # (Auto) 0.28; Luc % (Auto) 2; Lymphocytes # (A) 3.6 k/uL (1.0-4.8); Lymphocytes % (A) 31 %; MCH 30.9 pg (25.0-35.0); MCHC 35.9 g/dL (31.0-37.0); MCV 86.3 fL (80.0-100.0); Monocytes # (A) 0.7 k/uL (0-1.0); Monocytes % (A) 6 %; Neutrophils # (A) 6.8 k/uL (1.3-7.7); Neutrophils % (A) 59 %; RBC 4.56 m/uL (3.80-5.40); RDW 12.6 % (11.5-15.5); WBC 11.6 k/uL (3.8-10.6)
[2016-10-31 14:30] LABS: HGB 14.1 gm/dL (11.4-16.0)
[2016-10-31 14:33] LABS: Appearance,Urine Clear (Clear); Bilirubin,Urine Negative (Negative); Glucose,Urine (UA) Negative (Negative); Ketones,Urine Negative (Negative); Leukocyte Esterase,Urine Negative (Negative); Nitrite,Urine Negative (Negative); PH, Urine 6.5 (5.0-8.0); Protein,Urine Negative (Negative); Specific Gravity,Urine 1.011 (1.001-1.035); UA Billing (MACRO vs. MICRO) CHEM; Urobilinogen,Urine <2.0 mg/dL (<2.0)
[2016-10-31 14:40] LABS: ALT 48 U/L (9-52); AST 28 U/L (14-36); Alkaline Phosphatase 92 U/L (38-126); Anion Gap 12 mmol/L; Blood Urea Nitrogen 25 mg/dL (7-17); Calcium 9.6 mg/dL (8.4-10.2); Carbon Dioxide 23 mmol/L (22-30); Chloride 99 mmol/L (98-107); Glucose 80 mg/dL (74-99); Non-African American GFR(MDRD) >60 (>60 ml/min/1.73 sqM); Potassium 3.9 mmol/L (3.5-5.1); Sodium 134 mmol/L (137-145); Total Bilirubin 0.3 mg/dL (0.2-1.3); Total Protein 7.3 g/dL (6.3-8.2)
[2016-10-31] MEDS ORDERED: RX INFO: IV CONTRAST WAS GIVEN 1 EACH MISC MISCELLANE PRN (14:56)
[2016-10-31] MEDS ORDERED: MORPHINE SULFATE 4 MG/ML SYRINGE IV STA (14:56)
[2016-10-31 15:00] VITALS: RESP 16
--- NOTE | 2016-10-31 15:53 | CT ---
EXAMINATION TYPE: CT abdomen pelvis w con DATE OF EXAM: 10/31/2016 COMPARISON: 10/19/2016 INDICATION: Patient complains of bladder infection. DLP: 1171.00 mGycm, Automated exposure control for dose reduction was used. CONTRAST: 100 mL of Omnipaque 300. Study performed without Oral Contrast TECHNIQUE: Axial images were obtained from above the diaphragm to the pubic rami in the axial plane a t 5 mm thick sections. Reconstructed images are reviewed on the computer in the coronal plane. FINDINGS: Limited CT sections are obtained the lung bases. The lung bases are clear. CT ABDOMEN: Liver: Normal Spleen: Normal Pancreas: Normal Adrenal glands: The adrenal glands are normal. Gallbladder: Not visualized. Common bile duct measures 0.9 cm which is normal postcholecystectomy pat ient. Kidneys: No masses are evident. No hydronephrosis is present. No cysts are present. Delayed images were obtained through the kidneys, which remain unremarkable. Aorta: Vascular calcification is within the aorta. Inferior vena cava: Normal. CT PELVIS: Loops of bowel within the abdomen and pelvis are normal. Study is without oral contrast limiting the evaluation. Diverticular changes are within the sigmoid colon. Appendix: Surgically absent Urinary bladder: Normal. Genitourinary structures: Uterus appears normal. Adnexal regions are normal. Osseous structures: No suspicious lytic or sclerotic lesions. IMPRESSIONS: 1. No suspicious changes 2. Urinary bladder radiographically appears unremarkable.
[2016-10-31 16:25] VITALS: BP 101/58; PULSE 87; TEMP 98.1
== END 2016-10-31 16:25 | disposition home or self-care (01) ==
LOC: EC 12:54
DX: R10.9 Unspecified abdominal pain (principal); R39.198 Other difficulties with micturition; K21.9 Gastro-esophageal reflux disease without esophagitis; E78.5 Hyperlipidemia, unspecified; G40.909 Epilepsy, unspecified, not intractable, without status epilepticus; M79.7 Fibromyalgia; F41.0 Panic disorder [episodic paroxysmal anxiety]; F17.200 Nicotine dependence, unspecified, uncomplicated; Z86.73 Personal history of transient ischemic attack (TIA), and cerebral infarction without residual deficits; Z86.69 Personal history of other diseases of the nervous system and sense organs; Z90.49 Acquired absence of other specified parts of digestive tract; Z79.02 Long term (current) use of antithrombotics/antiplatelets; Z79.3 Long term (current) use of hormonal contraceptives; Z79.82 Long term (current) use of aspirin; Z79.899 Other long term (current) drug therapy; Z88.1 Allergy status to other antibiotic agents; Z88.8 Allergy status to other drugs, medicaments and biological substances
CPT/HCPCS: 99284; 96374; 96375 ×2; 96361; 36415; 80053; 85025; 81003; 87040; 87086; 74177; J2270; J2405; J1885; Q9967

== ENCOUNTER → 2016-10-31 | Outpatient (CLI) | payer MEDICARE, OTHER ==
--- NOTE | 2016-10-31 10:13 | CT ---
EXAMINATION TYPE: CT brain wo con DATE OF EXAM: 10/31/2016 COMPARISON: 08/04/2015 INDICATION: facial nerve disorder. hx stroke 2 wks ago. tia's DLP: 961.0 mGycm, Automated exposure control for dose reduction was used. CONTRAST: None CT of the brain is performed utilizing 3 mm thick sections through the posterior fossa and 3 mm thick sections through the remaining calvarium. Study is performed within 24 hours of arrival to the hosp [facility]. No abnormal hyperdensity is present to suggest an acute intracranial hemorrhage. No mass lesion is evident. No acute infarcts are evident. Beam hardening artifact from the aneurysm clip near the basilar tip is present. Stimulator leads are in the external occipital region Ventricles and sulci are appropriate for the patient age. Paranasal sinuses and mastoid air cells within the [id number] are clear. IMPRESSIONS: 1. Post aneurysm clipping. No significant change from July 2015 is evident. 2. No acute intracranial process.
== END | disposition home or self-care (01) ==
LOC: RADCTMAIN 09:41
PROVIDERS: ATTEND Psychiatry & Neurology Pain Medicine
DX: G51.9 Disorder of facial nerve, unspecified (principal); Z98.890 Other specified postprocedural states
CPT/HCPCS: 70450

== ENCOUNTER 2017-03-08 09:51 | Inpatient (IN) | payer MEDICARE, OTHER ==
[2017-03-08] MEDS ORDERED: SODIUM CHLORIDE 0.9% 500 ML IV STA (09:54)
[2017-03-08] MEDS ORDERED: SODIUM CHLORIDE 0.9% 1,000 ML IV STA (09:54)
--- NOTE | 2017-03-08 10:11 | CT ---
EXAMINATION TYPE: CT brain wo con for TPA DATE OF EXAM: 03/08/2017 COMPARISON: 10/31/2016 HISTORY: Neurologic deficits Unenhanced CT of the brain was performed. The ventricles, basal cisterns and sulci overlying the cerebral convexities demonstrate mild enlargem ent. There is no evidence for intracranial hemorrhage or sulcal effacement. Study limited by streak artif act related to patient's aneurysm clipping. There is decreased attenuation about the periventricular white matter and deep white matter of both c erebral hemispheres, compatible with chronic small vessel ischemia. Differential diagnosis does inclu de demyelination. No mass effects are seen.No midline shift. Osseous calvarium is intact. If symptoms persist consider MRI. IMPRESSION: 1. Age related atrophic and chronic small vessel ischemic change without acute intracranial process s een at this time. 2. Changes of prior aneurysm clipping with the limiting streak artifact.
[2017-03-08 10:19] LABS: Basophils % (A) 0 %; Eosinophils # (A) 0.2 k/uL (0-0.7); Eosinophils % (A) 2 %; HCT 38.8 % (34.0-46.0); Lymphocytes # (A) 2.7 k/uL (1.0-4.8); Lymphocytes % (A) 25 %; MCH 29.5 pg (25.0-35.0); MCHC 33.5 g/dL (31.0-37.0); MCV 88.2 fL (80.0-100.0); Mean Platelet Volume 6.5; Monocytes # (A) 0.5 k/uL (0-1.0); Monocytes % (A) 4 %; Neutrophils # (A) 7.4 k/uL (1.3-7.7); Neutrophils % (A) 67 %; Platelet Count 404 k/uL (150-450); RBC 4.39 m/uL (3.80-5.40); RDW 12.5 % (11.5-15.5)
[2017-03-08 10:21] LABS: Glucose,Whole Blood 112 mg/dL (75-99)
[2017-03-08 10:31] LABS: ALT 24 U/L (9-52); AST 17 U/L (14-36); Albumin 4.2 g/dL (3.5-5.0); Alkaline Phosphatase 75 U/L (38-126); Anion Gap 12 mmol/L; Blood Urea Nitrogen 11 mg/dL (7-17); Calcium 9.9 mg/dL (8.4-10.2); Carbon Dioxide 24 mmol/L (22-30); Chloride 103 mmol/L (98-107); Glucose 119 mg/dL (74-99); Potassium 3.5 mmol/L (3.5-5.1); Sodium 139 mmol/L (137-145); Total Bilirubin 0.2 mg/dL (0.2-1.3); Total Protein 6.9 g/dL (6.3-8.2)
[2017-03-08 10:38] LABS: Partial Thromboplastin Time 23.7 sec (22.0-30.0); Prothrombin Time 9.7 sec (9.0-12.0)
--- NOTE | 2017-03-08 10:41 | CT ---
EXAMINATION TYPE: CT angio head neck DATE OF EXAM: 03/08/2017 COMPARISON: NONE HISTORY: Unresponsive CT DLP: 450 mGycm CONTRAST: Performed with IV Contrast, patient injected with 65 mL of Omnipaque 350. Combination Contrast CTA cervical carotids and [place] of [place] CTA cervical carotids with 3-D recons truction Contrast CTA of the cervical carotids was performed 3-D reconstruction imaging obtained at a separate workstation. Right carotid system: No significant plaque is seen of the right common carotid artery. There is min imal plaque also noted at the carotid bulb and proximal ICA. No significant diameter reduction. ECA is patent. Right vertebral artery appears unremarkable. Left carotid system: No significant plaque is seen of the left common carotid artery. There is minim al plaque also noted at the carotid bulb and proximal ICS. No significant diameter reduction. ECA i s patent. Left vertebral artery appears unremarkable. IMPRESSION: 1. No significant diameter reduction to account for the patient's symptoms. CTA [place] with 3-D reconstruction Contrast CTA of the [place] of [place] was performed 3-D reconstruction imaging obtained at a separate workstation. Streak artifact from previous aneurysm clipping limits evaluation. Vertebrobasilar system as well as intracranial portions of the internal carotid arteries and their ma [place] tributaries are patent. I do not see evidence for sizable aneurysm or vascular malformation. Pl ease note MRI provides greater sensitivity and specificity. Visualized brain appears grossly unremar kable. IMPRESSION: 1. Limited study although I do not see evidence for aneurysm. Visualized vascular structures are shirlene sly patent.
[2017-03-08 10:48] LABS: Creatine Kinase 59 U/L (30-135)
[2017-03-08 11:00] LABS: Creatine Kinase MB 0.4 ng/mL (0.0-2.4); Troponin I <0.012 ng/mL (0.000-0.034)
--- NOTE | 2017-03-08 12:03 | ED ---
Neuro HPI - General Chief Complaint: Neuro Symptoms/Deficit Stated Complaint: CVA Time Seen by Provider: 03/08/17 09:51 Source: patient, EMS, RN notes reviewed, old records reviewed Mode of arrival: EMS Limitations: altered mental status - History of Present Illness Is the patient presenting with stroke symptoms?: Yes Initial Comments: This is a 52-year-old female history of CVA and intercerebral bleed with clipping in the past who is brought in by EMS priority one for a stroke from her neurologist office. She currently selling developed slurred speech passing some left facial droop of some generalized weakness. The blood pressure initially 1:30/88 increase 190/100 no recent fevers chills nausea vomiting sweats or other symptoms. - Related Data Home Medications: Home Medications Medication Instructions Recorded Confirmed Cetirizine HCl 10 mg PO DAILY PRN 09/07/13 03/08/17 Dicyclomine [Bentyl] 10 mg PO BID PRN 09/07/13 03/08/17 Ibuprofen [Motrin] 800 mg PO BID PRN 09/07/13 03/08/17 LORazepam [Ativan] 0.5 mg PO BID PRN 09/07/13 03/08/17 Multivitamins, Thera [Multivitamin 1 tab PO DAILY 09/07/13 03/08/17 (formulary)] Ranitidine HCl [Zantac] 150 mg PO BID 09/07/13 03/08/17 Clopidogrel [Plavix] 75 mg PO DAILY 02/16/14 03/08/17 Cyclobenzaprine [Flexeril] 10 mg PO HS 10/09/14 03/08/17 levETIRAcetam [Keppra] 1,000 mg PO BID 10/09/14 03/08/17 Gemfibrozil [Lopid] 600 mg PO AC-BID 07/07/16 03/08/17 Ergocalciferol (Vitamin D2) 50,000 unit PO Q30D 10/19/16 03/08/17 [Vitamin D2] HYDROcodone/APAP 7.5-325MG [[place] 1 tab PO DAILY PRN 10/19/16 03/08/17 7.5-325] Pregabalin [Lyrica] 75 mg PO BID 10/19/16 03/08/17 Norgestimate-Ethinyl Estradiol 1 tab PO DAILY 10/31/16 03/08/17 [Sprintec 28 Day Tablet] Albuterol Inhaler [Ventolin Hfa 1 - 2 puff INHALATION RT-Q6H PRN 03/08/17 Inhaler] Benazepril HCl 20 mg PO DAILY 03/08/17 03/08/17 Divalproex ER [Depakote ER] 1,000 mg PO BID 03/08/17 03/08/17 Hydrochlorothiazide [Hydrodiuril] 25 mg PO DAILY 03/08/17 03/08/17 L.acidoph,Paracasei, B.lactis 1 cap PO DAILY 03/08/17 03/08/17 [Probiotic] Memantine [Namenda] 10 mg PO BID 03/08/17 03/08/17 Pantoprazole Sodium [Protonix] 40 mg PO DAILY 03/08/17 03/08/17 Scopolamine 1.5MG/72Hr Patch 1 patch TRANSDERM Q72H 03/08/17 03/08/17 [Transderm-Scop 1.5MG/72Hr Patch] Testosterone Cypionate 200 mg IM Q28D 03/08/17 03/08/17 [Depo-Testosterone] Allergies/Adverse Reactions: Allergies Allergy/AdvReac Type Severity Reaction Status Date / Time Nqoyrwc-Nef-Ksm Reductase Allergy Severe Rash/Hives Verified 03/08/17 10:31 Inhibitor levofloxacin [From Levaquin] Allergy Swelling Verified 03/08/17 10:31 naratriptan HCl [From Amerge] Allergy Unknown Verified 03/08/17 09:53 migraine medications AdvReac Severe causes Uncoded 03/08/17 10:31 seizures Review of Systems ROS Statement: Those systems with pertinent positive or pertinent negative responses have been documented in the HPI. ROS Other: All systems not noted in ROS Statement are negative. General Exam - General Exam Comments Initial Comments: Is a well-developed well-nourished awake alert female Limitations: altered mental status General appearance: alert, anxious, in distress Head exam: Present: atraumatic, normocephalic, normal inspection Eye exam: Present: normal appearance, PERRL, EOMI. Absent: scleral icterus, conjunctival injection, periorbital swelling ENT exam: Present: other (On initial examination. Be some left facial asymmetry this did resolve shortly after arrival) Neck exam: Present: normal inspection. Absent: tenderness, meningismus, lymphadenopathy Respiratory exam: Present: normal lung sounds bilaterally. Absent: respiratory distress, wheezes, rales, rhonchi, stridor Cardiovascular Exam: Present: regular rate, normal rhythm, normal heart sounds. Absent: systolic murmur, diastolic murmur, rubs, gallop, clicks GI/Abdominal exam: Present: soft, normal bowel sounds. Absent: distended, tenderness, guarding, rebound, rigid Extremities exam: Present: normal inspection, normal capillary refill, other ( Some generalized weakness but no focal deficits.). Absent: full ROM, tenderness , pedal edema, joint swelling, calf tenderness Back exam: Present: normal inspection Neurological exam: Present: alert, motor sensory deficit (Please refer the NIH stroke scale visual was 1 surgery was 1). Absent: CN II-XII intact Psychiatric exam: Present: flat affect Skin exam: Present: warm, dry, intact, normal color. Absent: rash Stroke MDM - Lab Data Result diagrams: 03/08/17 09:55 03/08/17 09:55 Lab Results 03/08/17 03/08/17 03/08/17 Range/Units 09:55 09:55 09:55 WBC 11.0 H (3.8-10.6) k/uL RBC 4.39 (3.80-5.40) m/uL Hgb 13.0 (11.4-16.0) gm/dL Hct 38.8 (34.0-46.0) % MCV 88.2 (80.0-100.0) fL MCH 29.5 (25.0-35.0) pg MCHC 33.5 (31.0-37.0) g/dL RDW 12.5 (11.5-15.5) % Plt Count 404 (150-450) k/uL Neutrophils % 67 % Lymphocytes % 25 % Monocytes % 4 % Eosinophils % 2 % Basophils % 0 % Neutrophils # 7.4 (1.3-7.7) k/uL Lymphocytes # 2.7 (1.0-4.8) k/uL Monocytes # 0.5 (0-1.0) k/uL Eosinophils # 0.2 (0-0.7) k/uL Basophils # 0.0 (0-0.2) k/uL PT (9.0-12.0) sec INR (<1.2) APTT (22.0-30.0) sec Sodium 139 (137-145) mmol/L Potassium 3.5 (3.5-5.1) mmol/L Chloride 103 (98-107) mmol/L Carbon Dioxide 24 (22-30) mmol/L Anion Gap 12 mmol/L BUN 11 (7-17) mg/dL Creatinine 0.52 (0.52-1.04) mg/dL Est GFR (MDRD) Af Amer >60 (>60 ml/min/1.73 sqM) Est GFR (MDRD) Non-Af >60 (>60 ml/min/1.73 sqM) Glucose 119 H (74-99) mg/dL POC Glucose (mg/dL) (75-99) mg/dL POC Glu Slot Floor Attendant ID Calcium 9.9 (8.4-10.2) mg/dL Total Bilirubin 0.2 (0.2-1.3) mg/dL AST 17 (14-36) U/L ALT 24 (9-52) U/L Alkaline Phosphatase 75 (38-126) U/L Total Creatine Kinase 59 (30-135) U/L CK-MB (CK-2) 0.4 (0.0-2.4) ng/mL CK-MB (CK-2) Rel Index 0.7 Troponin I <0.012 (0.000-0.034) ng/mL Total Protein 6.9 (6.3-8.2) g/dL Albumin 4.2 (3.5-5.0) g/dL 03/08/17 03/08/17 Range/Units 09:55 10:14 WBC (3.8-10.6) k/uL RBC (3.80-5.40) m/uL Hgb (11.4-16.0) gm/dL Hct (34.0-46.0) % MCV (80.0-100.0) fL MCH (25.0-35.0) pg MCHC (31.0-37.0) g/dL RDW (11.5-15.5) % Plt Count (150-450) k/uL Neutrophils % % Lymphocytes % % Monocytes % % Eosinophils % % Basophils % % Neutrophils # (1.3-7.7) k/uL Lymphocytes # (1.0-4.8) k/uL Monocytes # (0-1.0) k/uL Eosinophils # (0-0.7) k/uL Basophils # (0-0.2) k/uL PT 9.7 (9.0-12.0) sec INR 1.0 (<1.2) APTT 23.7 (22.0-30.0) sec Sodium (137-145) mmol/L Potassium (3.5-5.1) mmol/L Chloride (98-107) mmol/L Carbon Dioxide (22-30) mmol/L Anion Gap mmol/L BUN (7-17) mg/dL Creatinine (0.52-1.04) mg/dL Est GFR (MDRD) Af Amer (>60 ml/min/1.73 sqM) Est GFR (MDRD) Non-Af (>60 ml/min/1.73 sqM) Glucose (74-99) mg/dL POC Glucose (mg/dL) 112 H (75-99) mg/dL POC Glu Slot Floor Attendant ID [place] Calcium (8.4-10.2) mg/dL Total Bilirubin (0.2-1.3) mg/dL AST (14-36) U/L ALT (9-52) U/L Alkaline Phosphatase (38-126) U/L Total Creatine Kinase (30-135) U/L CK-MB (CK-2) (0.0-2.4) ng/mL CK-MB (CK-2) Rel Index Troponin I (0.000-0.034) ng/mL Total Protein (6.3-8.2) g/dL Albumin (3.5-5.0) g/dL - NIH Stroke Scale 1a. Level of Consciousness: (0) alert 1b. LOC Questions: (0) answers correctly 1c. LOC Commands: (0) performs tasks correctly 2. Best Gaze: (0) normal 3. Visual: (1) partial hemianopia 4. Facial Palsy: (0) normal symmetrical movement 5a. Motor Arm Left: (0) no drift 5b. Motor Arm Right: (0) no drift 6a. Motor Leg Left: (0) no drift 6b. Motor Leg Right: (0) no drift 7. Limb Ataxia: (0) absent 8. Sensory: (1) mild/moderate sensory loss 9. Best Language: (0) no aphasia 10. Dysarthria: (0) normal 11. Extinction/Inattention: (0) no abnormality - Medical Decision Making Upon patient arrival code stroke was called. The interventional neurologist was consult at then did evaluate the patient and CT scans. Patient has a NIH stroke scale of 2 and currently is not a candidate for intervention at this time. It was recommended the patient be admitted for inpatient evaluation in this facility. Dr. Romo was evaluating neurologist. - EKG Data -: EKG Interpreted by Me EKG shows normal: sinus rhythm (Normal sinus rhythm rate of 92. Interval 140 QRS duration 80 QT since QTC 380/469 st-t wave changes appears be a normal EKG this is compared with EKG dated 10/20/12 demonstrating the same configuration.) Past Medical History Past Medical History: CVA/TIA, Fibromyalgia, GERD/Reflux, Hyperlipidemia, Hypertension, Neurologic Disorder, Seizure Disorder Additional Past Medical History / Comment(s): LAST SEIZURE 12/2015,severe migraines from brain aneurysm, TIA, states x6, LEFT ARM WEAKNESS, NEUROPATHY MATT LEGS, memory loss , occ vertigo. History of Any Multi-Drug Resistant Organisms: None Reported Past Surgical History: Appendectomy, Cholecystectomy, Tonsillectomy, Uterine Ablation Additional Past Surgical History / Comment(s): r lung surgery top portion lung removed, (STATES R/T FUNGUS) Has implanted TENS unit in back of head WITH BATTERY PACK IN BACK; surgical revision done by Dr. Linton in September 2013, "brain sx for anueryms has a coil" Past Anesthesia/Blood Transfusion Reactions: No Reported Reaction Additional Past Anesthesia/Blood Transfusion Reaction / Comment(s): STATES VERY HARD IV START, Past Psychological History: Anxiety, Panic Disorder Smoking Status: Current every day smoker - Past Family History Father Family Medical History: Liver Disease Additional Family Medical History / Comment(s): ALCOHOLIC CIRRHOISIS Mother Family Medical History: Cancer Additional Family Medical History / Comment(s): COLON Brother(s) Family Medical History: Cancer Additional Family Medical History / Comment(s): COLON Course Vital Signs 03/08/17 03/08/17 03/08/17 09:53 10:05 10:20 Temperature 98 F Pulse Rate 96 96 94 Respiratory 6 L 16 Rate Blood Pressure 162/92 156/90 157/93 O2 Sat by Pulse 96 96 92 L Oximetry 03/08/17 03/08/17 03/08/17 10:35 10:50 11:05 Temperature Pulse Rate 84 88 84 Respiratory 16 16 16 Rate Blood Pressure 138/85 143/91 158/87 O2 Sat by Pulse 98 100 100 Oximetry 03/08/17 03/08/17 11:20 11:35 Temperature Pulse Rate 82 82 Respiratory 16 16 Rate Blood Pressure 144/80 140/82 O2 Sat by Pulse 100 100 Oximetry - Reevaluation(s) Reevaluation #1: 03/08/17 13:16 Reevaluation patient reveals she does feel somewhat improved. Critical Care Time Critical Care Time: Yes Critical Care Time: 34 minutes of critical care time which includes initial monitoring of the EMS run and discussed with paramedics history physical labs and x-rays. Multiple reevaluation of the patient discussion with the patient family regarding the findings admission orders documentation the above. Also did include discussion with the admitting physician. Disposition Clinical Impression: Cerebrovascular accident, Transient cerebral ischemia Disposition: ADMITTED IP TO THIS HOSP Condition: Stable Referrals: Juana Garcia MD [Primary Care Provider] - 1-2 days
--- NOTE | 2017-03-08 12:39 | XR ---
EXAMINATION TYPE: XR chest 2V DATE OF EXAM: 03/08/2017 COMPARISON: 10/29/2015 HISTORY: Shortness of breath TECHNIQUE: Frontal and lateral views of the chest are obtained. FINDINGS: Scattered senescent parenchymal changes noted. No evidence for infiltrate. No evidence for atelectasis. Heart size is stable. Mediastinal structures are stable and grossly unremarkable. No evidence for hilar prominence. Degenerative changes dorsal spine. IMPRESSION: 1. No evidence for acute pulmonary disease.
[2017-03-08] MEDS ORDERED: ALBUTEROL NEBULIZED 2.5 MG/3 ML INHALATION PRN (13:22)
[2017-03-08] MEDS ORDERED: DICYCLOMINE 10 MG CAP PO PRN (13:22)
[2017-03-08] MEDS ORDERED: LORATADINE 10 MG TAB PO PRN (13:22)
[2017-03-08] MEDS ORDERED: IBUPROFEN 800 MG TAB PO PRN (13:22)
[2017-03-08] MEDS: HYDROcodone/APAP 7.5-325MG 1 EACH TAB PO PRN ×2 (13:29→20:16)
[2017-03-08] MEDS: NICOTINE 21MG/24HR PATCH TRANSDERM SCH (15:01)
--- NOTE | 2017-03-08 15:43 | P.HPIM ---
History of Present Illness H&P Date: 03/08/17 Chief Complaint: Slurred speech and left-sided weakness This is a 52-year-old female, patient of Dr. Garcia. She has a known past medical history of CVA with intracerebral bleeding due to an aneurysm which required clipping in 2005. Also history of multiple TIAs. Last TIA a couple years ago. History of hypertension, hyperlipidemia, migraine headaches, seizure disorder after the brain bleed. Last seizure was December 2015. Patient presented to her neurologist office, Dr. Linton for routine visit. Point it was around 9:15. While she was in the office patient started slurring her words and having evidence of a left facial droop. Now she is having left- sided weakness in the upper and lower extremity as well as a left-sided numbness. Dr. Linton sent her to the emergency room. Patient has been seen evaluated in the ER. She is been taking her medications as prescribed. She is still smoking about a pack a day. Patient does report having a bad reaction to Namenda that was started a week or so ago. Her last dose was last . She reports that she had memory loss and had blacked out. Patient doesn't having some mild shortness of breath. She denies any fever, chills, sweats, cough, bowel movement changes or urinary symptoms. Denies a chest pain. CTA of the head and neck shows no snacking in diameter reduction to account for patient's symptoms. CTA of the [place] of [place] limited study although radiologist did not see any evidence of aneurysm. Echo has been ordered. Patient has been placed on remote telemetry. She does not report any history of arrhythmias. EKG shows a normal sinus rhythm. Computed tomography scan of the brain revealing age-related atrophic and chronic small vessel ischemic changes without acute intracranial process. Changes of prior aneurysmal clipping with the limiting streak artifact. Chest x-ray negative. Patient has been placed on full aspirin and Plavix restarted. Review of Systems Please refer to HPI otherwise unremarkable Past Medical History Past Medical History: CVA/TIA, Fibromyalgia, GERD/Reflux, Hyperlipidemia, Hypertension, Neurologic Disorder, Seizure Disorder Additional Past Medical History / Comment(s): LAST SEIZURE 12/2015,severe migraines from brain aneurysm, TIA, states x6, LEFT ARM WEAKNESS, NEUROPATHY MATT LEGS, memory loss , occ vertigo. History of Any Multi-Drug Resistant Organisms: None Reported Past Surgical History: Appendectomy, Cholecystectomy, Tonsillectomy, Uterine Ablation Additional Past Surgical History / Comment(s): r lung surgery top portion lung removed, (STATES R/T FUNGUS) Has implanted TENS unit in back of head WITH BATTERY PACK IN BACK; surgical revision done by Dr. iLnton in September 2013, "brain sx for brayan has a coil" Past Anesthesia/Blood Transfusion Reactions: No Reported Reaction Additional Past Anesthesia/Blood Transfusion Reaction / Comment(s): STATES VERY HARD IV START, Past Psychological History: Anxiety, Panic Disorder Smoking Status: Current every day smoker - Past Family History Father Family Medical History: Liver Disease Additional Family Medical History / Comment(s): ALCOHOLIC CIRRHOISIS Mother Family Medical History: Cancer Additional Family Medical History / Comment(s): COLON Brother(s) Family Medical History: Cancer Additional Family Medical History / Comment(s): COLON Medications and Allergies Home Medications Medication Instructions Recorded Confirmed Type Cetirizine HCl 10 mg PO DAILY PRN 09/07/13 03/08/17 History Dicyclomine [Bentyl] 10 mg PO BID PRN 09/07/13 03/08/17 History Ibuprofen [Motrin] 800 mg PO BID PRN 09/07/13 03/08/17 History LORazepam [Ativan] 0.5 mg PO BID PRN 09/07/13 03/08/17 History Multivitamins, Thera [Multivitamin 1 tab PO DAILY 09/07/13 03/08/17 History (formulary)] Ranitidine HCl [Zantac] 150 mg PO BID 09/07/13 03/08/17 History Clopidogrel [Plavix] 75 mg PO DAILY 02/16/14 03/08/17 History Cyclobenzaprine [Flexeril] 10 mg PO HS 10/09/14 03/08/17 History levETIRAcetam [Keppra] 1,000 mg PO BID 10/09/14 03/08/17 History Gemfibrozil [Lopid] 600 mg PO AC-BID 07/07/16 03/08/17 History Ergocalciferol (Vitamin D2) 50,000 unit PO Q30D 10/19/16 03/08/17 History [Vitamin D2] HYDROcodone/APAP 7.5-325MG [[place] 1 tab PO DAILY PRN 10/19/16 03/08/17 History 7.5-325] Pregabalin [Lyrica] 75 mg PO BID 10/19/16 03/08/17 History Norgestimate-Ethinyl Estradiol 1 tab PO DAILY 10/31/16 03/08/17 History [Sprintec 28 Day Tablet] Albuterol Inhaler [Ventolin Hfa 1 - 2 puff INHALATION RT-Q6H PRN 03/08/17 History Inhaler] Benazepril HCl 20 mg PO DAILY 03/08/17 03/08/17 History Divalproex ER [Depakote ER] 1,000 mg PO BID 03/08/17 03/08/17 History Hydrochlorothiazide [Hydrodiuril] 25 mg PO DAILY 03/08/17 03/08/17 History L.acidoph,Paracasei, B.lactis 1 cap PO DAILY 03/08/17 03/08/17 History [Probiotic] Memantine [Namenda] 10 mg PO BID 03/08/17 03/08/17 History Pantoprazole Sodium [Protonix] 40 mg PO DAILY 03/08/17 03/08/17 History Scopolamine 1.5MG/72Hr Patch 1 patch TRANSDERM Q72H 03/08/17 03/08/17 History [Transderm-Scop 1.5MG/72Hr Patch] Testosterone Cypionate 200 mg IM Q28D 03/08/17 03/08/17 History [Depo-Testosterone] Allergies Allergy/AdvReac Type Severity Reaction Status Date / Time Rthntxx-Oly-Jtj Reductase Allergy Severe Rash/Hives Verified 03/08/17 10:31 Inhibitor levofloxacin [From Levaquin] Allergy Swelling Verified 03/08/17 10:31 naratriptan HCl [From Amerge] Allergy Unknown Verified 03/08/17 09:53 migraine medications AdvReac Severe causes Uncoded 03/08/17 10:31 seizures Physical Exam Vitals: Vital Signs Temp Pulse Resp BP Pulse Ox 03/08/17 13:30 82 16 125/59 100 03/08/17 12:30 84 16 131/73 100 03/08/17 11:35 82 16 140/82 100 03/08/17 11:20 82 16 144/80 100 03/08/17 11:05 84 16 158/87 100 03/08/17 10:50 88 16 143/91 100 03/08/17 10:35 84 16 138/85 98 03/08/17 10:20 94 16 157/93 92 L 03/08/17 10:05 96 6 L 156/90 96 03/08/17 09:53 98 F 96 162/92 96 Intake and Output 03/07/17 03/08/17 03/08/17 22:59 06:59 14:59 Other: Weight 63.503 kg Patient Weight 03/09/17 06:59 Weight 63.503 kg Head normocephalic Neck supple Lungs clear to auscultation bilaterally no wheezing or crackles Heart regular rate and rhythm S1-S2, no rub or gallop Abdomen is soft nontender nondistended positive bowel sounds no hepatosplenomegaly Extremities no edema Neuro alert and orientated to 3. Slurred speech. Left-sided facial droop. Hand cream decreased on the left. Lower extremity strength decreased on the left. Sensation loss noted along the left side of the face on left arm and left leg Results CBC & Chem 7: 03/08/17 09:55 03/08/17 09:55 Labs: Abnormal Lab Results - Last 24 Hours (Table) 03/08/17 03/08/17 03/08/17 Range/Units 09:55 09:55 10:14 WBC 11.0 H (3.8-10.6) k/uL Glucose 119 H (74-99) mg/dL POC Glucose (mg/dL) 112 H (75-99) mg/dL Assessment and Plan Assessment: 1. Slurred speech with left facial droop and left arm and leg weakness starting around 9:15 this morning. Symptoms still present. Computed tomography scan of the brain shows no acute stroke. Neurology consulted. Echo has been ordered. CTA of the head and neck Limited been no evidence of any aneurysm. EKG normal sinus rhythm. Patient placed on telemetry rule out any arrhythmia. Neurology consulted. 2. Leukocytosis: Possibly reactive. Patient asymptomatic for any infections. Chest x-ray was negative. Repeat CBC in a.m. 3. Nicotine dependence: Discussed smoking cessation. Add nicotine patch 4. Prior history of brain aneurysm with brain bleed requiring clipping in 2005 5. History of fibromyalgia and chronic pain. Patient has TENS unit 6. Essential hypertension 7. Hyperlipidemia 8. Migraines 9. Seizure disorder after stroke and brain bleed. Last seizure 2016 GI prophylaxis Pepcid and DVT prophylaxis subcu heparin Time with Patient: Greater than 30 (Greater than 50% of the total time spent in counseling and coordination of care.I performed an examination of the patient and discussed their management with the physician Cashier Host/Hostess. I have reviewed the Physician Cashier Host/Hostess's notes and agree with the documented findings and plan of care)
[2017-03-08 15:55] VITALS: BMI 24.0
[2017-03-08] MEDS: SCOPOLAMINE 1.5MG/72HR PATCH TRANSDERM SCH (16:25)
[2017-03-08] MEDS: LORazepam 0.5 MG TAB PO PRN (16:25)
[2017-03-08] MEDS: SODIUM CHLORIDE 0.9% 1,000 ML IV SCH (16:28)
[2017-03-08] MEDS ORDERED: GEMFIBROZIL 600 MG TAB PO SCH (17:30)
[2017-03-08] MEDS ORDERED: VALPROATE SODIUM 750 MG in SODIUM CHLORIDE 0.9% 50 ML IVPB STA (19:12)
[2017-03-08] MEDS: HEPARIN SODIUM,PORCINE 5,000 UNIT/ML 1 ML VIAL SQ SCH (20:18)
[2017-03-08] MEDS: FAMOTIDINE 20 MG TAB PO SCH (20:19)
[2017-03-08] MEDS: levETIRAcetam 500 MG TAB PO SCH (20:19)
[2017-03-08] MEDS: GEMFIBROZIL 600 MG TAB PO SCH (20:19)
[2017-03-08] MEDS: DIVALPROEX ER 500 MG TAB.ER.24H PO SCH (20:20)
[2017-03-08] MEDS: CYCLOBENZAPRINE 10 MG TAB PO SCH (20:20)
[2017-03-09] MEDS: PREGABALIN 75 MG CAP PO SCH ×2 (05:49→08:12)
[2017-03-09] MEDS: MEMANTINE 10 MG TAB PO SCH ×2 (05:49→08:12)
[2017-03-09 06:14] LABS: Basophils % (A) 1 %; Eosinophils # (A) 0.2 k/uL (0-0.7); Eosinophils % (A) 3 %; HCT 32.1 % (34.0-46.0); HGB 10.8 gm/dL (11.4-16.0); Lymphocytes # (A) 2.9 k/uL (1.0-4.8); Lymphocytes % (A) 37 %; MCH 30.5 pg (25.0-35.0); MCHC 33.5 g/dL (31.0-37.0); MCV 91.2 fL (80.0-100.0); Mean Platelet Volume 7.2; Monocytes # (A) 0.4 k/uL (0-1.0); Monocytes % (A) 5 %; Neutrophils # (A) 4.1 k/uL (1.3-7.7); Neutrophils % (A) 53 %; Platelet Count 321 k/uL (150-450); RBC 3.52 m/uL (3.80-5.40); RDW 13.5 % (11.5-15.5); WBC 7.8 k/uL (3.8-10.6)
[2017-03-09 06:47] LABS: ALT 16 U/L (9-52); AST 13 U/L (14-36); Albumin 3.1 g/dL (3.5-5.0); Alkaline Phosphatase 55 U/L (38-126); Anion Gap 7 mmol/L; Blood Urea Nitrogen 9 mg/dL (7-17); Calcium 8.4 mg/dL (8.4-10.2); Carbon Dioxide 23 mmol/L (22-30); Chloride 108 mmol/L (98-107); Cholesterol 158 mg/dL (<200); Glucose 89 mg/dL (74-99); HDL Cholesterol 48 mg/dL (40-60); LDL Cholesterol,Calculated 79 mg/dL (0-99); Sodium 138 mmol/L (137-145); Total Bilirubin 0.2 mg/dL (0.2-1.3); Total Protein 5.3 g/dL (6.3-8.2); Triglycerides 155 mg/dL (<150)
[2017-03-09] MEDS: PANTOPRAZOLE 40 MG TABLET PO SCH (06:53)
[2017-03-09] MEDS: GEMFIBROZIL 600 MG TAB PO SCH ×2 (06:54→20:57)
[2017-03-09] MEDS: SODIUM CHLORIDE 0.9% 1,000 ML IV SCH ×3 (06:54→20:42)
[2017-03-09] MEDS: HYDROcodone/APAP 7.5-325MG 1 EACH TAB PO PRN ×2 (08:04→23:10)
--- NOTE | 2017-03-09 08:04 | CONS ---
CONSULTATION DATE OF CONSULTATION: 03/08/2017 CHIEF COMPLAINT: Stroke. HISTORY OF PRESENT ILLNESS: Mrs Vick is a pleasant 52-year-old, female who is being evaluated by the neurology service per the request of Dr. West for a stroke. The patient is well known to my practice and was actually being seen for a routine office visit today. While being evaluated, she had a sudden onset of slurred speech, followed by some expressive aphasia and left-sided weakness. The patient has previous history of transient ischemic attacks and also has history of intracranial aneurysm status post clipping. She also has history of seizure disorder. No seizure-like activity was witnessed. EMS was called and she was transferred to [facility] Emergency Room. A stat CT scan of the brain was done, which showed small vessel ischemic changes, generalized atrophy and metallic artifact from the previous aneurysm clipping. A CT angiogram of the brain was done, which showed no aneurysms. A CT angiogram of the neck was done which showed no significant stenosis. Her blood pressure was significantly elevated during the episode in my office. When she was roomed, her blood pressure was 144/78, but during the episode her blood pressure was 190/91. She was also tachycardic at 128 beats per minute. The patient was admitted for further workup and management. At the time of my evaluation, her left hemiparesis continues to be present although the intensity has improved. She is able to talk now but her fluency is reduced. Her CBC, comprehensive metabolic profile and cardiac enzymes showed no significant abnormalities. Her serum Depakote level was subtherapeutic at 21.4. She denies missing any doses. She is on Depakote ER 1000 mg b.i.d. and Keppra 1000 mg b.i.d. She has not had any recent breakthrough seizures. PAST MEDICAL HISTORY: Aneurysm, intracranial, status post clipping. She also has history of transient ischemic attacks, strokes, fibromyalgia, gastroesophageal reflux disease, seizure disorder, dyslipidemia, hypertension, migraine headaches, history of appendectomy, cholecystectomy, tonsillectomy, uterine ablation, nerve stimulator implantation, history of anxiety disorder. SOCIAL HISTORY: The patient is a current every day smoker. She denies any alcohol or drug use. FAMILY HISTORY: Positive for cancer and liver disease. HOME MEDICATIONS: Reviewed in the chart. ALLERGIES: LEVAQUIN, AMERGE, STATIN DRUGS. REVIEW OF SYSTEMS: CONSTITUTIONAL: Positive for fatigue. EYES: Negative. ENT: Negative. CARDIOVASCULAR: As mentioned above. RESPIRATORY: Negative. NEUROLOGICAL: As mentioned above. GASTROINTESTINAL: Positive for occasional heartburn. GENITOURINARY: Negative. MUSCULOSKELETAL: Positive for occasional joint pain. DERMATOLOGICAL: Negative. PSYCHIATRIC: Positive for history of anxiety disorder. ENDOCRINE: Negative. PHYSICAL EXAM: Vital signs show a temperature of 97.9, pulse 80, respirations 16, blood pressure 123/80. GENERAL APPEARANCE: The patient is a well-developed female who appears to be in no acute distress. HEENT: Normocephalic, atraumatic, slight left facial drooping is seen. Neck is supple with no masses felt. CARDIOVASCULAR: Regular rate and rhythm. ABDOMEN: Nontender, nondistended. Extremities showed no edema or clubbing. NEUROLOGICAL EXAM: The patient is alert, awake and oriented x3. Language testing showed decreased fluency. Naming and comprehension are intact. She has slight difficulty with repetition. Strength is 4/5 on the left and 5/5 on the right. A slight pronator drift is seen on the left. No tremors or seizure-like activity is seen. Cranial nerve testing showed slight left facial drooping. IMPRESSION: 1. Acute ischemic stroke. 2. Left hemiparesis. 3. Expressive aphasia. 4. Seizure disorder. 5. Tobacco dependence. RECOMMENDATION: The patient does appear to have suffered an acute ischemic stroke. She is still having left hemiparesis and expressive aphasia although the intensity has improved. The patient is already on aspirin and Plavix at home and I will continue with this current regimen. Continue IV hydration as tolerated. Her blood pressure has normalized at this time. The patient does have history of aneurysm clipping and is unable to undergo any MRI imaging. I reviewed her CT scan of the brain, CT angiogram of the brain, and CT angiogram of the neck, and no acute findings are seen. Physical therapy, speech therapy, and occupational therapy will be consulted. I will order a fasting lipid panel, EEG, and serum homocystine level. As for her seizure history, her seizures have been very well controlled, although her Depakote level is subtherapeutic on this admission. I will keep her on her home dose of Depakote ER 1000 mg b.i.d., but I will give her a single loading dose of IV Depakote at 750 mg. Continue Keppra at 1000 mg b.i.d. Continue neuro checks. I will continue to follow with you. Further recommendations to follow. Thank you for allowing me to participate in the care of your patient. If you have any questions, please feel free to contact me. JIMENA / JAZMYN: [id number] /
[2017-03-09] MEDS: CLOPIDOGREL 75 MG TAB PO SCH (08:08)
[2017-03-09] MEDS: DIVALPROEX ER 500 MG TAB.ER.24H PO SCH ×2 (08:08→20:56)
[2017-03-09] MEDS: FAMOTIDINE 20 MG TAB PO SCH ×2 (08:09→20:56)
[2017-03-09] MEDS: LACTOBACILLUS ACIDOPH & BULGAR 1 EACH PACKET PO SCH (08:09)
[2017-03-09] MEDS: HEPARIN SODIUM,PORCINE 5,000 UNIT/ML 1 ML VIAL SQ SCH ×2 (08:09→20:57)
[2017-03-09] MEDS: HYDROCHLOROTHIAZIDE 25 MG TAB PO SCH (08:09)
[2017-03-09] MEDS: LISINOPRIL 20 MG TAB PO SCH (08:10)
[2017-03-09] MEDS: levETIRAcetam 500 MG TAB PO SCH ×2 (08:10→20:57)
[2017-03-09] MEDS: NICOTINE 21MG/24HR PATCH TRANSDERM SCH (08:11)
[2017-03-09] MEDS ORDERED: ERGOCALCIFEROL 50,000 UNIT CAP PO SCH (09:00)
[2017-03-09] MEDS: ONDANSETRON 4 MG/2 ML VIAL IVP PRN (10:17)
--- NOTE | 2017-03-09 11:11 | ECHOF ---
Referral Reason:CVA MEASUREMENTS -------- HEIGHT: 162.6 cm WEIGHT: 63.5 kg BP: 125/59 RVIDd: 2.4 cm (< 3.3) IVSd: 0.8 cm (0.6 - 1.1) LVIDd: 4.0 cm (3.9 - 5.3) LVPWd: 1.0 cm (0.6 - 1.1) IVSs: 1.0 cm LVIDs: 3.0 cm LVPWs: 1.3 cm LAESV Index (A-L): 10.45 ml/m Ao Diam: 3.2 cm (2.0 - 3.7) AV Cusp: 1.6 cm (1.5 - 2.6) LA Diam: 2.2 cm (2.7 - 3.8) MV E Brian: 0.91 m/s MV DecT: 269 ms MV A Brian: 0.98 m/s MV E/A Ratio: 0.93 RAP: 5.00 mmHg RVSP: 24.47 mmHg MV EF SLOPE: 63.46 mm/s (70 - 150) MV EXCURSION: 1.56 cm (> 18.000) FINDINGS -------- Sinus rhythm. This was a technically adequate study. The left ventricular size is normal. Left ventricular wall thickness is normal. Overall left vent ricular systolic function is low-normal with, an EF between 50 - 55 %. The right ventricle is normal in size and function. Normal LA size by volume 22+/-6 ml/m2. The right atrium is normal in size. Aortic valve is trileaflet and is mildly thickened. There is no evidence of aortic regurgitation. There is no evidence of aortic stenosis. The mitral valve leaflets are mildly thickened. There is trace mitral regurgitation. Trace tricuspid regurgitation present. Right ventricular systolic pressure is normal at < 35 mmHg. There is no evidence of pulmonary hypertension. The pulmonic valve was not well visualized. The aortic root size is normal. Normal inferior vena cava with normal inspiratory collapse consistent with estimated right atrial pre ssure of 5 mmHg. The pericardium is normal. There is no pericardial effusion. CONCLUSIONS -------- 1. Sinus rhythm. 2. This was a technically adequate study. 3. The left ventricular size is normal. 4. Left ventricular wall thickness is normal. 5. Overall left ventricular systolic function is low-normal with, an EF between 50 - 55 %. 6. Normal LA size by volume 22+/-6 ml/m2. 7. Aortic valve is trileaflet and is mildly thickened. 8. The mitral valve leaflets are mildly thickened. 9. There is trace mitral regurgitation. 10. Trace tricuspid regurgitation present. 11. Right ventricular systolic pressure is normal at < 35 mmHg. 12. There is no evidence of pulmonary hypertension. 13. The pulmonic valve was not well visualized. 14. The aortic root size is normal. 15. There is no pericardial effusion. WHEAT WASHER: Pawan Melissa RDCS
--- NOTE | 2017-03-09 12:49 | P.PN ---
Subjective Progress Note Date: 03/09/17 This is a 52-year-old female, patient of Dr. Garcia. She has a known past medical history of CVA with intracerebral bleeding due to an aneurysm which required clipping in 2005. Also history of multiple TIAs. Last TIA a couple years ago. History of hypertension, hyperlipidemia, migraine headaches, seizure disorder after the brain bleed. Last seizure was December 2015. Patient presented to her neurologist office, Dr. Linton for routine visit. Point it was around 9:15. While she was in the office patient started slurring her words and having evidence of a left facial droop. Now she is having left- sided weakness in the upper and lower extremity as well as a left-sided numbness. Dr. Linton sent her to the emergency room. Patient has been seen evaluated in the ER. She is been taking her medications as prescribed. She is still smoking about a pack a day. Patient does report having a bad reaction to Namenda that was started a week or so ago. Her last dose was last . She reports that she had memory loss and had blacked out. Patient doesn't having some mild shortness of breath. She denies any fever, chills, sweats, cough, bowel movement changes or urinary symptoms. Denies a chest pain. CTA of the head and neck shows no snacking in diameter reduction to account for patient's symptoms. CTA of the alturas of Quan limited study although radiologist did not see any evidence of aneurysm. Echo has been ordered. Patient has been placed on remote telemetry. She does not report any history of arrhythmias. EKG shows a normal sinus rhythm. Computed tomography scan of the brain revealing age-related atrophic and chronic small vessel ischemic changes without acute intracranial process. Changes of prior aneurysmal clipping with the limiting streak artifact. Chest x-ray negative. Patient has been placed on full aspirin and Plavix restarted. 03/09/2017 patient still having residual left-sided weakness and slurred speech. She's had some improvement in the weakness and slurred speech. Neurology is following. She has worked with physical therapy. She is complaining of some left leg calf pain. Also has had issues with Namenda and Lyrica at home and had stopped taking them. Apparently they were still on her med list. These medications will be discontinued. Patient denies any chest pain, shortness breath, nausea or vomiting, bowel movement changes or urinary symptoms Objective - Vital Signs Vital signs: Vital Signs Temp 98.4 F 03/09/17 11:54 Pulse 82 03/09/17 11:54 Resp 18 03/09/17 11:54 BP 111/68 03/09/17 11:54 Pulse Ox 98 03/09/17 11:54 Intake & Output 03/08/17 03/09/17 03/09/17 18:59 06:59 18:59 Intake Total 240 50 580 Output Total 800 Balance -560 50 580 Weight 63.503 kg Intake: Intake, IV Titration 50 Amount Valproate Sodium 750 mg 50 In Sodium Chloride 0.9% 50 ml @ 50 mls/hr IVPB ONCE STA Rx#:[id number] Oral 240 580 Output: Urine 800 Other: # Bowel Movements 0 - Exam Head normocephalic Neck supple Lungs clear to auscultation bilaterally no wheezing or crackles Heart regular rate and rhythm S1-S2, no rub or gallop Abdomen is soft nontender nondistended positive bowel sounds no hepatosplenomegaly Extremities no edema Neuro alert and orientated to 3. Slurred speech. Left-sided facial droop. Hand cream decreased on the left. Lower extremity strength decreased on the left. Sensation loss noted along the left side of the face on left arm and left leg - Labs CBC & Chem 7: 03/09/17 05:28 03/09/17 05:28 Labs: Abnormal Lab Results - Last 24 Hours (Table) 03/08/17 03/09/17 03/09/17 Range/Units 09:55 05:28 05:28 RBC 3.52 L (3.80-5.40) m/uL Hgb 10.8 L (11.4-16.0) gm/dL Hct 32.1 L (34.0-46.0) % Chloride 108 H (98-107) mmol/L Creatinine 0.50 L (0.52-1.04) mg/dL AST 13 L (14-36) U/L Total Protein 5.3 L (6.3-8.2) g/dL Albumin 3.1 L (3.5-5.0) g/dL Triglycerides 155 H (<150) mg/dL Homocysteine 20.39 H (4.00-14.00) umol/L Assessment and Plan Assessment: 1. Acute ischemic stroke with Slurred speech with left facial droop and left arm and leg weakness. Computed tomography scan of the brain shows no acute stroke. Unable to have MRI due to her aneurysmal clipping. Patient seen by neurology. Neurology consulted. Echo has been ordered. CTA of the head and neck Limited been no evidence of any aneurysm. EKG normal sinus rhythm. No evidence of any arrhythmia. Echo shows an EF of 50-55% no valvular abnormality 2. Leukocytosis: Resolved. Possibly reactive. Patient asymptomatic for any infections. Chest x-ray was negative. 3. Nicotine dependence: Discussed smoking cessation. Add nicotine patch 4. Prior history of brain aneurysm with brain bleed requiring clipping in 2005 5. History of fibromyalgia and chronic pain. Patient has TENS unit 6. Essential hypertension 7. Hyperlipidemia 8. Migraines 9. Seizure disorder after stroke and brain bleed. Last seizure 2015. Depakote level low. Neurology has ordered 1 dose of IV Depakote. 10. Left leg pain: Check venous Doppler. Rule out DVT 11. Anemia hemoglobin dropped to 10.8. Likely related to fluids. No evidence of active bleeding. Check iron studies. GI prophylaxis Pepcid and DVT prophylaxis subcu heparin I performed an examination of the patient and discussed their management with the physician Academic Affairs Assistant. I have reviewed the Physician Academic Affairs Assistant's notes and agree with the documented findings and plan of care
--- NOTE | 2017-03-09 13:58 | US ---
EXAMINATION TYPE: US venous Doppler duplex LE LT DATE OF EXAM: 03/09/2017 1:46 PM COMPARISON: NONE CLINICAL HISTORY: left calf pain post TIA. SIDE PERFORMED: Left TECHNIQUE: The lower extremity deep venous system is examined utilizing real time linear array sonog aline with graded compression, Doppler sonography and color-flow sonography. VESSELS IMAGED: Common Femoral Vein Deep Femoral Vein Greater Saphenous Vein * Femoral Vein Popliteal Vein Small Saphenous Vein * Proximal Calf Veins (* superficial vessels) Left Leg: Negative for DVT Grayscale, color Doppler, spectral Doppler imaging performed of the deep veins of the left lower extr emity. There is normal flow, compressibility, vascular waveforms. IMPRESSION: No ultrasound evidence for acute DVT in the left lower extremity.
--- NOTE | 2017-03-09 14:56 | P.CONS ---
History of Present Illness - Chief Complaint Gait disturbance - History of Present Illness I had the opportunity to see patient for inpatient rehab consultation with regard to gait disturbance. She was admitted to [facility] March 08, yesterday , acute onset left-sided weakness and slurring of speech. Initial Angio-Seal CT negative. Head CT demonstrated age and chronic changes as well as a previous aneurysm clipping. Chest x-ray negative. Lower extremity Doppler negative for DVT. PT reports minimal assistance for transfers and gait 75 feet with IV pole. OT reports supervision for upper dressing and minimal assistance for lower dressing, bathing, toileting and transfers. Speech therapy reports communication within functional limits. Previous functional history as elicited from patient: 52-year-old right-handed white female who is single lives in one form with boyfriend. Is on disability. Describes independent with cooking, laundry, driving, standing shower and gait without device. Daughter apparently visits regularly or daily. Patient admits to smoking pack per day and a rare drink. Family history of mother with colon cancer. Review of Systems Review of systems: ENT: Denies sneezes or discharge. Eyes: Denies discharge or photophobia. Cardiac: Denies chest pain or palpitation. Pulmonary: Denies cough or shortness of breath. Breast: Denies discharge or lumps. Gastrointestinal: Denies nausea, emesis, constipation, diarrhea. Genitourinary: Denies discharge or frequency. Musculoskeletal: Denies muscle or bone aches. Neurologic: Left-sided weakness and numbness. Endocrine: Denies shakes or sweats. Oncology: Denies cancers. Dermatologic: Denies rash, itching, pruritus. ALLERGY/immunology: Denies sneezes, rashes. Past Medical History Past Medical History: CVA/TIA, Fibromyalgia, GERD/Reflux, Hyperlipidemia, Hypertension, Neurologic Disorder, Seizure Disorder Additional Past Medical History / Comment(s): LAST SEIZURE 12/2015,severe migraines from brain aneurysm, TIA, states x6, LEFT ARM WEAKNESS, NEUROPATHY MATT LEGS, memory loss , occ vertigo. History of Any Multi-Drug Resistant Organisms: None Reported Past Surgical History: Appendectomy, Cholecystectomy, Tonsillectomy, Uterine Ablation Additional Past Surgical History / Comment(s): r lung surgery top portion lung removed, (STATES R/T FUNGUS) Has implanted TENS unit in back of head WITH BATTERY PACK IN BACK; surgical revision done by Dr. Linton in September 2013, "brain sx for brayan has a coil" Past Anesthesia/Blood Transfusion Reactions: No Reported Reaction Additional Past Anesthesia/Blood Transfusion Reaction / Comm: STATES VERY HARD IV START, Past Psychological History: Anxiety, Panic Disorder Smoking Status: Current every day smoker - Past Family History Father Family Medical History: Liver Disease Additional Family Medical History / Comment(s): ALCOHOLIC CIRRHOISIS Mother Family Medical History: Cancer Additional Family Medical History / Comment(s): COLON Brother(s) Family Medical History: Cancer Additional Family Medical History / Comment(s): COLON Medications and Allergies Home Medications Medication Instructions Recorded Confirmed Type Cetirizine HCl 10 mg PO DAILY PRN 09/07/13 03/08/17 History Dicyclomine [Bentyl] 10 mg PO BID PRN 09/07/13 03/08/17 History Ibuprofen [Motrin] 800 mg PO BID PRN 09/07/13 03/08/17 History LORazepam [Ativan] 0.5 mg PO BID PRN 09/07/13 03/08/17 History Multivitamins, Thera [Multivitamin 1 tab PO DAILY 09/07/13 03/08/17 History (formulary)] Ranitidine HCl [Zantac] 150 mg PO BID 09/07/13 03/08/17 History Clopidogrel [Plavix] 75 mg PO DAILY 02/16/14 03/08/17 History Cyclobenzaprine [Flexeril] 10 mg PO HS 10/09/14 03/08/17 History levETIRAcetam [Keppra] 1,000 mg PO BID 10/09/14 03/08/17 History Gemfibrozil [Lopid] 600 mg PO AC-BID 07/07/16 03/08/17 History Ergocalciferol (Vitamin D2) 50,000 unit PO Q30D 10/19/16 03/08/17 History [Vitamin D2] HYDROcodone/APAP 7.5-325MG [Marcus 1 tab PO DAILY PRN 10/19/16 03/08/17 History 7.5-325] Norgestimate-Ethinyl Estradiol 1 tab PO DAILY 10/31/16 03/08/17 History [Sprintec 28 Day Tablet] Albuterol Inhaler [Ventolin Hfa 1 - 2 puff INHALATION RT-Q6H PRN 03/08/17 History Inhaler] Ascorbic Acid [Vitamin C] 500 mg PO BID 03/08/17 03/08/17 History Aspirin 81 mg PO DAILY 03/08/17 03/08/17 History Benazepril HCl 20 mg PO DAILY 03/08/17 03/08/17 History Divalproex ER [Depakote ER] 1,000 mg PO BID 03/08/17 03/08/17 History Hydrochlorothiazide [Hydrodiuril] 25 mg PO DAILY 03/08/17 03/08/17 History L.acidoph,Paracasei, B.lactis 1 cap PO DAILY 03/08/17 03/08/17 History [Probiotic] Lidocaine 5% Patch [Lidoderm 5% 1 patch TRANSDERM DAILY PRN 03/08/17 03/08/17 History Patch] Ondansetron HCl [Zofran] 8 mg PO DAILY PRN 03/08/17 03/08/17 History Pantoprazole Sodium [Protonix] 40 mg PO DAILY 03/08/17 03/08/17 History Scopolamine 1.5MG/72Hr Patch 1 patch TRANSDERM Q72H 03/08/17 03/08/17 History [Transderm-Scop 1.5MG/72Hr Patch] Testosterone Cypionate 200 mg IM Q28D 03/08/17 03/08/17 History [Depo-Testosterone] Allergies Allergy/AdvReac Type Severity Reaction Status Date / Time [id number] Reductase Allergy Severe Rash/Hives Verified 03/08/17 10:31 Inhibitor levofloxacin [From Levaquin] Allergy Swelling Verified 03/08/17 10:31 naratriptan HCl [From Amerge] Allergy Unknown Verified 03/08/17 09:53 migraine medications AdvReac Severe causes Uncoded 03/08/17 10:31 seizures Physical Exam Vitals: Vital Signs Temp Pulse Resp BP Pulse Ox 03/09/17 11:54 98.4 F 81 18 111/68 98 03/09/17 08:00 97.2 F L 82 18 117/74 98 03/09/17 04:00 98.2 F 84 18 116/68 98 03/09/17 00:00 88 18 03/08/17 20:00 99.2 F 88 18 127/76 98 03/08/17 16:21 100 03/08/17 15:45 97.9 F 80 16 123/80 99 Intake and Output 03/08/17 03/09/17 03/09/17 22:59 06:59 14:59 Intake Total 240 50 820 Output Total 800 Balance -560 50 820 Intake: Intake, IV Titration 50 Amount Valproate Sodium 750 mg 50 In Sodium Chloride 0.9% 50 ml @ 50 mls/hr IVPB ONCE STA Rx#:[id number] Oral 240 820 Output: Urine 800 Other: # Bowel Movements 0 Skin: Good color, texture, turgor. General: Medium build and comfortable appearance. Head: Normocephalic, atraumatic. Eyes: Symmetric. Pupils equal round. Ears: Symmetric. Hearing within normal limits. Mouth: Clear. Neck: Supple. Carotid without bruit. Cardiac: Regular rate and rhythm. Lungs: Clear anteriorly and posteriorly. Abdomen: Soft active nontender. Extremities: Normal tone. Neurological: Mental status: Alert, cooperative, pleasant. Cranial nerves: Symmetric facial tone and trapezius. Motor: Normal strength and isolation right side. Left arm weak in flexion synergy and left leg in extension synergy with elements of isolation throughout. Sensation: Intact throughout. DTRs: Symmetric and equal throughout. Mobility: Sits and stands with minimal assistance. Results CBC & Chem 7: 03/09/17 05:28 03/09/17 05:28 Labs: Abnormal Lab Results - Last 24 Hours (Table) 03/08/17 03/09/17 03/09/17 Range/Units 09:55 05:28 05:28 RBC 3.52 L (3.80-5.40) m/uL Hgb 10.8 L (11.4-16.0) gm/dL Hct 32.1 L (34.0-46.0) % Chloride 108 H (98-107) mmol/L Creatinine 0.50 L (0.52-1.04) mg/dL AST 13 L (14-36) U/L Total Protein 5.3 L (6.3-8.2) g/dL Albumin 3.1 L (3.5-5.0) g/dL Triglycerides 155 H (<150) mg/dL Homocysteine 20.39 H (4.00-14.00) umol/L Chest x-ray: report reviewed (Negative.) CT Scan - head: report reviewed (Age-related change, chronic change, previous aneurysm clipping.) Venous US: report reviewed (Negative for DVT. Angio-Seal CT of brain was negative as well.) Assessment and Plan (1) Cerebrovascular accident Current Visit: Yes Status: Acute Code(s): I63.9 - CEREBRAL INFARCTION, UNSPECIFIED SNOMED Code(s): 701653057 Plan: Impression: 1. Gait disturbance. 2. Right MCA stroke with result in left hemiparesthesias. History of previous stroke. 3. Hypertension. 4. Dyslipidemia. 5. Fibromyalgia. 6. Seizure disorder. 7. Reflux. Comments and plan: At this time PT, OT, [employer] ongoing. Safety concerns noted. Discussed possible inpatient rehab with patient and she seems agreeable. Most likely review case Sunday a.m. for final approval of transfer/admission.
--- NOTE | 2017-03-09 15:07 | EEG ---
ELECTROENCEPHALOGRAM REPORT DATE OF SERVICE: 03/09/2017 REASON FOR TESTING: Stroke and history of seizures. CURRENT ANTIEPILEPTIC MEDICATIONS: Depakote and Keppra. DESCRIPTION OF THE PROCEDURE: This EEG was performed using a 21 channel digital electroencephalograph, following international 10-20 system. DESCRIPTION OF THE RECORDING: From the beginning of the tracing, and with the patient's eyes closed, the background rhythm was mostly consisting of 9 Hz alpha frequency in the posterior occipital leads. No obvious asymmetry is seen. Occasional lead artifacts are seen. Frequent movement artifacts and muscle artifacts are also seen. Photic stimulation was performed, but it was discontinued after 6 Hz due to discomfort. Hyperventilation was not performed. The patient remains awake throughout the tracing. No epileptiform discharges were seen. Her EKG lead showed a regular rate and rhythm. INTERPRETATION: This awake EEG can be considered within normal limits. There was no asymmetry seen. No epileptiform discharges were noticed. The absence of epileptiform discharges does not rule out the diagnosis of epilepsy, therefore clinical correlation is recommended. MMGARRYL / IJN: [id number] /
[2017-03-09] MEDS: ASPIRIN 325 MG TAB PO SCH (17:26)
[2017-03-09] MEDS: MULTIVITAMINS, THERA 1 EACH TAB PO SCH (17:26)
[2017-03-09] MEDS: DOCUSATE 100 MG CAP PO SCH (17:30)
[2017-03-09 19:39] LABS: Iron Saturation 29.18 (12.00-45.00)
--- NOTE | 2017-03-09 20:13 | P.PN ---
Subjective Progress Note Date: 03/09/17 Principal diagnosis: Acute Ischemic Stroke Neurology is following on a 52 year old female with a significant history of TIA and CVA. Patient was being seen in our office when she began having expressive aphasia, word finding difficulty, slurred speech and left sided aphasia weakness. EMS was requested and the patient was transported to the ED at [facility]. Patient has a history of seizures, GERD, fibromyalgia, dyslipidemia, hypertension, migraine and is well known to our practice. Results: Ct Brain- small vessel ischemic changes, generalized atrophy and artifact CT Angiogram of the neck- no hemodynamically significant stenosis At the time of contact, the patient was resting in bed in no acute distress. Patient was AOx3, deficits have decreased day over day. Objective - Vital Signs Vital signs: Vital Signs Temp 98.3 F 03/09/17 16:00 Pulse 84 03/09/17 16:00 Resp 18 03/09/17 16:00 BP 122/69 03/09/17 16:00 Pulse Ox 97 03/09/17 16:00 Intake & Output 03/09/17 03/09/17 03/10/17 06:59 18:59 06:59 Intake Total 50 1260 Balance 50 1260 Intake: Intake, IV Titration 50 Amount Valproate Sodium 750 mg 50 In Sodium Chloride 0.9% 50 ml @ 50 mls/hr IVPB ONCE STA Rx#:[id number] Oral 1260 Other: # Voids 2 - Constitutional Constitutional Comment(s): AOx3 General appearance: Present: cooperative, no acute distress - EENT Eyes: Present: PERRLA ENT: Present: NA/AT, normal oropharynx - Neck Neck: Present: normal ROM. Absent: lymphadenopathy - Respiratory Respiratory: negative: diminished, dullness, rales, rhonchi, wheezing, prolonged expiration, prolonged inspiration - Cardiovascular Rhythm: regular - Gastrointestinal General gastrointestinal: Present: normal bowel sounds. Absent: distended, rigid, tenderness - Integumentary Integumentary: Present: calor, normal. Absent: flushed, jaundiced, normal turgor, pale, rash, ulcer - Neurologic Neurologic: Present: CNII-XII intact - Musculoskeletal Musculoskeletal: Present: generalized weakness, left sided weakness. Absent: gait normal - Psychiatric Psychiatric: Present: A&O x's 3, appropriate affect, intact judgment & insight - Labs CBC & Chem 7: 03/09/17 05:28 03/09/17 05:28 Labs: Abnormal Lab Results - Last 24 Hours (Table) 03/08/17 03/09/17 03/09/17 Range/Units 09:55 05:28 05:28 RBC 3.52 L (3.80-5.40) m/uL Hgb 10.8 L (11.4-16.0) gm/dL Hct 32.1 L (34.0-46.0) % Chloride 108 H (98-107) mmol/L Creatinine 0.50 L (0.52-1.04) mg/dL AST 13 L (14-36) U/L Total Protein 5.3 L (6.3-8.2) g/dL Albumin 3.1 L (3.5-5.0) g/dL Triglycerides 155 H (<150) mg/dL Homocysteine 20.39 H (4.00-14.00) umol/L Assessment and Plan (1) Hypertension Current Visit: Yes Status: Acute Code(s): I10 - ESSENTIAL (PRIMARY) HYPERTENSION SNOMED Code(s): 48302116 (2) Hyperlipidemia Current Visit: Yes Status: Acute Code(s): E78.5 - HYPERLIPIDEMIA, UNSPECIFIED SNOMED Code(s): 67545835 (3) Cerebrovascular accident Current Visit: Yes Status: Acute Code(s): I63.9 - CEREBRAL INFARCTION, UNSPECIFIED SNOMED Code(s): 675124365 Plan: Patient does appear to have suffered a CVA given the lack of resolutions of symptoms regardless of the imaging. A repeat CT of the brain was ordered. Overall the patient has been improving but she still have signficant ambulation difficulty, speech and balance. EEG was normal, serum homocysteine was elevated. I will prescribe Foltx as note for the patient for her elevated serum homocysteine. Continue neuro checks as previously ordered. Continue, aspirin and plavix. Continue lipid management, anticoagulation and other pertinent mediations. Neurology will continue to follow and provides updates as needed or warranted Patient will follow up in our office 10 days post discharge. TIFFANIE CruzP-C Neurology For Dr Kelsie Linton MD.
[2017-03-09] MEDS: CYCLOBENZAPRINE 10 MG TAB PO SCH (20:56)
[2017-03-09] MEDS: DICYCLOMINE 10 MG CAP PO SCH (20:56)
[2017-03-10] MEDS: SODIUM CHLORIDE 0.9% 1,000 ML IV SCH ×2 (05:20→16:55)
[2017-03-10] MEDS: GEMFIBROZIL 600 MG TAB PO SCH ×2 (06:31→20:38)
[2017-03-10] MEDS: PANTOPRAZOLE 40 MG TABLET PO SCH (06:31)
[2017-03-10 07:01] LABS: Basophils % (A) 0 %; Eosinophils # (A) 0.2 k/uL (0-0.7); Eosinophils % (A) 2 %; HCT 33.6 % (34.0-46.0); Lymphocytes # (A) 2.8 k/uL (1.0-4.8); Lymphocytes % (A) 33 %; MCH 29.3 pg (25.0-35.0); MCHC 32.7 g/dL (31.0-37.0); MCV 89.7 fL (80.0-100.0); Mean Platelet Volume 7.2; Monocytes # (A) 0.4 k/uL (0-1.0); Monocytes % (A) 5 %; Neutrophils # (A) 4.8 k/uL (1.3-7.7); Neutrophils % (A) 58 %; Platelet Count 314 k/uL (150-450); RBC 3.74 m/uL (3.80-5.40); RDW 13.9 % (11.5-15.5); WBC 8.3 k/uL (3.8-10.6)
[2017-03-10 07:15] LABS: ALT 17 U/L (9-52); AST 14 U/L (14-36); Albumin 3.3 g/dL (3.5-5.0); Alkaline Phosphatase 55 U/L (38-126); Anion Gap 9 mmol/L; Blood Urea Nitrogen 7 mg/dL (7-17); Calcium 9.1 mg/dL (8.4-10.2); Carbon Dioxide 26 mmol/L (22-30); Chloride 104 mmol/L (98-107); Glucose 81 mg/dL (74-99); Potassium 4.2 mmol/L (3.5-5.1); Sodium 139 mmol/L (137-145); Total Bilirubin <0.1 mg/dL (0.2-1.3); Total Protein 5.6 g/dL (6.3-8.2)
--- NOTE | 2017-03-10 07:35 | CT ---
EXAMINATION TYPE: CT brain wo con DATE OF EXAM: 03/10/2017 COMPARISON: Previous study dated 03/08/2017 HISTORY: Follow up to CVA CT DLP: 999.8 mGycm Automated exposure control for dose reduction was used. FINDINGS: There has been a previous aneurysm clipping in the [place]. Central structures are midline. There is no evidence of hydrocephalus. No acute focal lesion, mass ef fect or midline shift is seen. I do not see evidence of intracranial blood. Visualized portions of the paranasal sinuses and mastoids are clear. IMPRESSION: 1. NO ACUTE INTRACRANIAL ABNORMALITY. 2. POSTSURGICAL CHANGE.
[2017-03-10] MEDS: HYDROcodone/APAP 7.5-325MG 1 EACH TAB PO PRN ×2 (08:09→22:00)
[2017-03-10] MEDS: levETIRAcetam 500 MG TAB PO SCH ×2 (08:10→20:38)
[2017-03-10] MEDS: NICOTINE 21MG/24HR PATCH TRANSDERM SCH (08:11)
[2017-03-10] MEDS: LISINOPRIL 20 MG TAB PO SCH (08:11)
[2017-03-10] MEDS: DICYCLOMINE 10 MG CAP PO SCH ×2 (08:12→20:38)
[2017-03-10] MEDS: CLOPIDOGREL 75 MG TAB PO SCH (08:12)
[2017-03-10] MEDS: DIVALPROEX ER 500 MG TAB.ER.24H PO SCH ×2 (08:12→20:38)
[2017-03-10] MEDS: ASPIRIN 325 MG TAB PO SCH (08:12)
[2017-03-10] MEDS: HYDROCHLOROTHIAZIDE 25 MG TAB PO SCH (08:13)
[2017-03-10] MEDS: HEPARIN SODIUM,PORCINE 5,000 UNIT/ML 1 ML VIAL SQ SCH ×2 (08:13→20:38)
[2017-03-10] MEDS: LACTOBACILLUS ACIDOPH & BULGAR 1 EACH PACKET PO SCH (08:13)
[2017-03-10] MEDS: DOCUSATE 100 MG CAP PO SCH (08:13)
[2017-03-10] MEDS: FAMOTIDINE 20 MG TAB PO SCH ×2 (08:13→20:38)
[2017-03-10] MEDS: MULTIVITAMINS, THERA 1 EACH TAB PO SCH (12:18)
--- NOTE | 2017-03-10 12:32 | P.PN ---
Subjective Progress Note Date: 03/10/17 Principal diagnosis: Acute Ischemic Stroke Neurology is following on a 52 year old female with a significant history of TIA and CVA. Patient was being seen in our office when she began having expressive aphasia, word finding difficulty, slurred speech and left sided aphasia weakness. EMS was requested and the patient was transported to the ED at [facility]. Patient has a history of seizures, GERD, fibromyalgia, dyslipidemia, hypertension, migraine and is well known to our practice. Results: Ct Brain- small vessel ischemic changes, generalized atrophy and artifact CT Angiogram of the neck- no hemodynamically significant stenosis CT brain #2changed EEG: Normal Serum homocystine level: Elevated, Foltx prescribed At the time of contact, the patient was resting in bedside chair in no acute distress. Patient was AOx3, deficits have decreased day over day, but patient still has difficulty with speech and left sided weakness. Objective - Vital Signs Vital signs: Vital Signs Temp 98.3 F 03/10/17 12:00 Pulse 81 03/10/17 12:00 Resp 18 03/10/17 12:00 BP 132/77 03/10/17 12:00 Pulse Ox 98 03/10/17 12:00 Intake & Output 03/09/17 03/10/17 03/10/17 18:59 06:59 18:59 Intake Total 1260 600 236 Balance 1260 600 236 Weight 63.5 kg Intake: Intake, IV Titration 600 Amount Sodium Chloride 0.9% 1, 600 000 ml @ 100 mls/hr IV . Q10H VERNELL Rx#:[id number] Oral 1260 236 Other: Voiding Method Toilet # Voids 2 1 1 - Exam Gen. appearance: Alert, in no apparent distress Head: Atraumatic normocephalic, normal inspection Eyes: Well appearance, PERRL, EOMI. absent: Scleral icterus, conjunctival injection, nystagmus, periorbital swelling. Ear nose and throat: Normal exam, mucous membranes moist Neck: Normal inspection. Absent tenderness, lymphadenopathy Respiratory: No increased work of breathing. Cardiovascular: Regular rate, normal rhythm, normal heart sounds. Absent systolic murmur, diastolic murmur, rubs, gallops, clicks GIabdominal: Normal bowel sounds, non distended, no tenderness, no guarding, no rebound, no rigidity. Extremities: All range of motion, normal capillary refill, no tenderness, pedal edema, joint swelling, calf tenderness Neurological: Alert and oriented 3, cranial nerves II through XII intact, left sided unilateral lateralizing weakness (left 3+/5, right 4+/5), no seizure activity noted on physical exam, no pronator drift and no nystagmus. Psychological: Mood and affect appropriate setting - Labs CBC & Chem 7: 03/10/17 06:09 03/10/17 06:09 Labs: Abnormal Lab Results - Last 24 Hours (Table) 03/10/17 03/10/17 Range/Units 06:09 06:09 RBC 3.74 L (3.80-5.40) m/uL Hgb 11.0 L (11.4-16.0) gm/dL Hct 33.6 L (34.0-46.0) % Total Bilirubin <0.1 L (0.2-1.3) mg/dL Total Protein 5.6 L (6.3-8.2) g/dL Albumin 3.3 L (3.5-5.0) g/dL Assessment and Plan (1) Hypertension Current Visit: Yes Status: Acute Code(s): I10 - ESSENTIAL (PRIMARY) HYPERTENSION SNOMED Code(s): 68495544 (2) Hyperlipidemia Current Visit: Yes Status: Acute Code(s): E78.5 - HYPERLIPIDEMIA, UNSPECIFIED SNOMED Code(s): 14993163 (3) Cerebrovascular accident Current Visit: Yes Status: Acute Code(s): I63.9 - CEREBRAL INFARCTION, UNSPECIFIED SNOMED Code(s): 724046710 Plan: Patient does appear to have suffered a CVA given the lack of resolutions of symptoms despite conclusive imaging changes. A repeat CT of the brain was ordered and noted no new changes. Overall the patient has been improving but she still have signficant ambulation difficulty, sided weakness, speech and balance images. EEG was normal, serum homocysteine was elevated. I will prescribe Foltx as note for the patient for her elevated serum homocysteine. Continue neuro checks every shift. Continue, aspirin and plavix. Continue lipid management. Patient is well-known to provide her practice. Patient appears to be approximately 80% return to baseline. patient can be cleared from a neurological standpoint for placement either home rehabilitation or inpatient rehab for her noted remaining deficits. Neurology will the patient for discharge from a neurological standpoint. Medications as stated above at discharge. Patient will follow up in our office 10 days post discharge. LEORA Cruz-C Neurology For Dr Kelsie Linton MD.
--- NOTE | 2017-03-10 12:44 | P.PN ---
Subjective Progress Note Date: 03/10/17 This is a 52-year-old female, patient of Dr. Garcia. She has a known past medical history of CVA with intracerebral bleeding due to an aneurysm which required clipping in 2005. Also history of multiple TIAs. Last TIA a couple years ago. History of hypertension, hyperlipidemia, migraine headaches, seizure disorder after the brain bleed. Last seizure was December 2015. Patient presented to her neurologist office, Dr. Linton for routine visit. Point it was around 9:15. While she was in the office patient started slurring her words and having evidence of a left facial droop. Now she is having left- sided weakness in the upper and lower extremity as well as a left-sided numbness. Dr. Linton sent her to the emergency room. Patient has been seen evaluated in the ER. She is been taking her medications as prescribed. She is still smoking about a pack a day. Patient does report having a bad reaction to Namenda that was started a week or so ago. Her last dose was last . She reports that she had memory loss and had blacked out. Patient doesn't having some mild shortness of breath. She denies any fever, chills, sweats, cough, bowel movement changes or urinary symptoms. Denies a chest pain. CTA of the head and neck shows no snacking in diameter reduction to account for patient's symptoms. CTA of the [place] limited study although radiologist did not see any evidence of aneurysm. Echo has been ordered. Patient has been placed on remote telemetry. She does not report any history of arrhythmias. EKG shows a normal sinus rhythm. Computed tomography scan of the brain revealing age-related atrophic and chronic small vessel ischemic changes without acute intracranial process. Changes of prior aneurysmal clipping with the limiting streak artifact. Chest x-ray negative. Patient has been placed on full aspirin and Plavix restarted. On 03/10/2017 patient is feeling better she has more motion in her left hand and less weakness she was able to ambulate with help facial drooping has improved somewhat, symptoms have not totally resolved, EEG was negative. Objective - Vital Signs Vital signs: Vital Signs Temp 98.3 F 03/10/17 12:00 Pulse 81 03/10/17 12:00 Resp 18 03/10/17 12:00 BP 132/77 03/10/17 12:00 Pulse Ox 98 03/10/17 12:00 Intake & Output 03/09/17 03/10/17 03/10/17 18:59 06:59 18:59 Intake Total 1260 600 236 Balance 1260 600 236 Weight 63.5 kg Intake: Intake, IV Titration 600 Amount Sodium Chloride 0.9% 1, 600 000 ml @ 100 mls/hr IV . Q10H VERNELL Rx#:[id number] Oral 1260 236 Other: Voiding Method Toilet # Voids 2 1 1 - Exam In general patient is alert and oriented 3 HEENT head normocephalic and atraumatic there is left facial drooping Neck is supple no JVD no goiter no lymphadenopathy Chest exam reveals a few scattered crackles no wheezing Cardiac exam reveals regular heart sounds no murmurs Abdomen is soft nontender no organomegaly Extremity exam reveals no edema no cyanosis or clubbing Neurological exam reveals left sided weakness involving the left upper extremity and left lower extremity mildly improved since yesterday - Labs CBC & Chem 7: 03/10/17 06:09 03/10/17 06:09 Labs: Abnormal Lab Results - Last 24 Hours (Table) 03/10/17 03/10/17 Range/Units 06:09 06:09 RBC 3.74 L (3.80-5.40) m/uL Hgb 11.0 L (11.4-16.0) gm/dL Hct 33.6 L (34.0-46.0) % Total Bilirubin <0.1 L (0.2-1.3) mg/dL Total Protein 5.6 L (6.3-8.2) g/dL Albumin 3.3 L (3.5-5.0) g/dL Assessment and Plan Plan: #1 ischemic stroke with left sided weakness involving the left upper extremity and left lower extremity, computed tomography scan negative so far, EEG negative patient was started on physical therapy and occupational therapy, she was started on aspirin and Plavix and folic acid #2 underlying history of hyperlipidemia maintained on Lopid #3 previous history of seizure disorder maintained on Keppra and Depakote #4 Ecotrin dependence maintained on nicotine patch counseled regarding smoking cessation #5 history of fibromyalgia with chronic pain #6 underlying history of hypertension #7 underlying history of migraine headache #8 previous history of brain aneurysm with intracranial bleeding patient had clipping of aneurysm in 2005 Continue was current management was physical therapy and occupational therapy Possible transfer to rehab on Sunday
[2017-03-10] MEDS: ONDANSETRON 4 MG/2 ML VIAL IVP PRN (14:06)
[2017-03-10] MEDS: LORazepam 0.5 MG TAB PO PRN (14:20)
[2017-03-10] MEDS: CYCLOBENZAPRINE 10 MG TAB PO SCH (20:38)
[2017-03-11] MEDS: SODIUM CHLORIDE 0.9% 1,000 ML IV SCH ×3 (01:30→21:02)
[2017-03-11] MEDS: GEMFIBROZIL 600 MG TAB PO SCH ×2 (06:28→20:02)
[2017-03-11] MEDS: PANTOPRAZOLE 40 MG TABLET PO SCH (06:28)
[2017-03-11 06:37] LABS: Basophils % (A) 0 %; Eosinophils # (A) 0.2 k/uL (0-0.7); Eosinophils % (A) 3 %; HCT 36.1 % (34.0-46.0); HGB 11.6 gm/dL (11.4-16.0); Lymphocytes # (A) 2.5 k/uL (1.0-4.8); Lymphocytes % (A) 33 %; MCH 29.6 pg (25.0-35.0); MCHC 32.2 g/dL (31.0-37.0); Mean Platelet Volume 7.2; Monocytes # (A) 0.4 k/uL (0-1.0); Monocytes % (A) 5 %; Neutrophils # (A) 4.4 k/uL (1.3-7.7); Neutrophils % (A) 57 %; Platelet Count 325 k/uL (150-450); RBC 3.93 m/uL (3.80-5.40); RDW 13.7 % (11.5-15.5); WBC 7.6 k/uL (3.8-10.6)
[2017-03-11 06:55] LABS: ALT 16 U/L (9-52); AST 15 U/L (14-36); Albumin 3.6 g/dL (3.5-5.0); Alkaline Phosphatase 67 U/L (38-126); Anion Gap 7 mmol/L; Blood Urea Nitrogen 6 mg/dL (7-17); Calcium 9.2 mg/dL (8.4-10.2); Carbon Dioxide 26 mmol/L (22-30); Chloride 105 mmol/L (98-107); Glucose 83 mg/dL (74-99); Potassium 4.4 mmol/L (3.5-5.1); Sodium 138 mmol/L (137-145); Total Bilirubin 0.1 mg/dL (0.2-1.3); Total Protein 5.9 g/dL (6.3-8.2)
[2017-03-11] MEDS: HEPARIN SODIUM,PORCINE 5,000 UNIT/ML 1 ML VIAL SQ SCH ×2 (09:19→20:02)
[2017-03-11] MEDS: MULTIVITAMINS, THERA 1 EACH TAB PO SCH (09:20)
[2017-03-11] MEDS: levETIRAcetam 500 MG TAB PO SCH ×2 (09:20→20:02)
[2017-03-11] MEDS: ASPIRIN 325 MG TAB PO SCH (09:20)
[2017-03-11] MEDS: HYDROCHLOROTHIAZIDE 25 MG TAB PO SCH (09:20)
[2017-03-11] MEDS: FAMOTIDINE 20 MG TAB PO SCH ×2 (09:20→20:02)
[2017-03-11] MEDS: LACTOBACILLUS ACIDOPH & BULGAR 1 EACH PACKET PO SCH (09:20)
[2017-03-11] MEDS: NICOTINE 21MG/24HR PATCH TRANSDERM SCH (09:20)
[2017-03-11] MEDS: CYANOCOBALAMIN-FA-PYRIDOXINE 1 EACH TAB PO SCH (09:20)
[2017-03-11] MEDS: CLOPIDOGREL 75 MG TAB PO SCH (09:20)
[2017-03-11] MEDS: LISINOPRIL 20 MG TAB PO SCH (09:20)
[2017-03-11] MEDS: DIVALPROEX ER 500 MG TAB.ER.24H PO SCH ×2 (09:20→20:02)
[2017-03-11] MEDS: DICYCLOMINE 10 MG CAP PO SCH ×2 (09:21→20:02)
[2017-03-11] MEDS: HYDROcodone/APAP 7.5-325MG 1 EACH TAB PO PRN ×3 (09:33→16:35)
[2017-03-11] MEDS: LORazepam 0.5 MG TAB PO PRN (09:33)
--- NOTE | 2017-03-11 11:10 | P.PN ---
Subjective This is a 52-year-old female, patient of Dr. Garcia. She has a known past medical history of CVA with intracerebral bleeding due to an aneurysm which required clipping in 2005. Also history of multiple TIAs. Last TIA a couple years ago. History of hypertension, hyperlipidemia, migraine headaches, seizure disorder after the brain bleed. Last seizure was December 2015. Patient presented to her neurologist office, Dr. Linton for routine visit. Point it was around 9:15. While she was in the office patient started slurring her words and having evidence of a left facial droop. Now she is having left- sided weakness in the upper and lower extremity as well as a left-sided numbness. Dr. Linton sent her to the emergency room. Patient has been seen evaluated in the ER. She is been taking her medications as prescribed. She is still smoking about a pack a day. Patient does report having a bad reaction to Namenda that was started a week or so ago. Her last dose was last . She reports that she had memory loss and had blacked out. Patient doesn't having some mild shortness of breath. She denies any fever, chills, sweats, cough, bowel movement changes or urinary symptoms. Denies a chest pain. CTA of the head and neck shows no snacking in diameter reduction to account for patient's symptoms. CTA of the [place] limited study although radiologist did not see any evidence of aneurysm. Echo has been ordered. Patient has been placed on remote telemetry. She does not report any history of arrhythmias. EKG shows a normal sinus rhythm. Computed tomography scan of the brain revealing age-related atrophic and chronic small vessel ischemic changes without acute intracranial process. Changes of prior aneurysmal clipping with the limiting streak artifact. Chest x-ray negative. Patient has been placed on full aspirin and Plavix restarted. On 03/10/2017 patient is feeling better she has more motion in her left hand and less weakness she was able to ambulate with help facial drooping has improved somewhat, symptoms have not totally resolved, EEG was negative. On 03/11 2017 patient is doing better she is alert and oriented 3 she is able to move her hand facial drooping has improved she is able to ambulate with help. Objective - Vital Signs Vital signs: Vital Signs Temp 97.8 F 03/11/17 04:00 Pulse 78 03/11/17 04:00 Resp 16 03/11/17 04:00 BP 114/63 03/11/17 04:00 Pulse Ox 97 03/11/17 04:00 Intake & Output 03/10/17 03/11/17 03/11/17 18:59 06:59 18:59 Intake Total 236 480 Balance 236 480 Weight 63.5 kg Intake: Oral 236 480 Other: Voiding Method Toilet # Voids 1 2 0 - Exam In general patient is alert and oriented 3 HEENT head normocephalic and atraumatic there is left facial drooping Neck is supple no JVD no goiter no lymphadenopathy Chest exam reveals a few scattered crackles no wheezing Cardiac exam reveals regular heart sounds no murmurs Abdomen is soft nontender no organomegaly Extremity exam reveals no edema no cyanosis or clubbing Neurological exam reveals left sided weakness involving the left upper extremity and left lower extremity mildly improved since yesterday - Labs CBC & Chem 7: 03/11/17 06:10 03/11/17 06:10 Labs: Abnormal Lab Results - Last 24 Hours (Table) 03/11/17 Range/Units 06:10 BUN 6 L (7-17) mg/dL Total Bilirubin 0.1 L (0.2-1.3) mg/dL Total Protein 5.9 L (6.3-8.2) g/dL Assessment and Plan Plan: #1 ischemic stroke with left sided weakness involving the left upper extremity and left lower extremity, computed tomography scan negative so far, EEG negative patient was started on physical therapy and occupational therapy, she was started on aspirin and Plavix and folic acid #2 underlying history of hyperlipidemia maintained on Lopid #3 previous history of seizure disorder maintained on Keppra and Depakote #4 Ecotrin dependence maintained on nicotine patch counseled regarding smoking cessation #5 history of fibromyalgia with chronic pain #6 underlying history of hypertension #7 underlying history of migraine headache #8 previous history of brain aneurysm with intracranial bleeding patient had clipping of aneurysm in 2005 Continue with current management withphysical therapy and occupational therapy Patient is improving she is wishing to be discharged home and not to rehab tomorrow will reassess condition in am
[2017-03-11] MEDS: DOCUSATE 100 MG CAP PO SCH (11:54)
[2017-03-11] MEDS: SCOPOLAMINE 1.5MG/72HR PATCH TRANSDERM SCH (11:55)
[2017-03-11] MEDS: ONDANSETRON 4 MG/2 ML VIAL IVP PRN (16:29)
[2017-03-11] MEDS: CYCLOBENZAPRINE 10 MG TAB PO SCH (20:02)
[2017-03-12] MEDS: LORazepam 0.5 MG TAB PO PRN (02:01)
[2017-03-12] MEDS: HYDROcodone/APAP 7.5-325MG 1 EACH TAB PO PRN (03:46)
[2017-03-12 06:37] LABS: Basophils % (A) 1 %; Eosinophils # (A) 0.3 k/uL (0-0.7); Eosinophils % (A) 3 %; HCT 39.3 % (34.0-46.0); HGB 13.2 gm/dL (11.4-16.0); Lymphocytes # (A) 2.7 k/uL (1.0-4.8); Lymphocytes % (A) 34 %; MCHC 33.7 g/dL (31.0-37.0); Mean Platelet Volume 6.9; Monocytes # (A) 0.5 k/uL (0-1.0); Monocytes % (A) 6 %; Neutrophils # (A) 4.3 k/uL (1.3-7.7); Neutrophils % (A) 54 %; Platelet Count 355 k/uL (150-450); RBC 4.41 m/uL (3.80-5.40); RDW 12.4 % (11.5-15.5); WBC 7.9 k/uL (3.8-10.6)
[2017-03-12] MEDS: PANTOPRAZOLE 40 MG TABLET PO SCH (06:40)
[2017-03-12] MEDS: GEMFIBROZIL 600 MG TAB PO SCH (06:40)
[2017-03-12] MEDS: SODIUM CHLORIDE 0.9% 1,000 ML IV SCH (06:41)
[2017-03-12 06:45] LABS: ALT 21 U/L (9-52); AST 19 U/L (14-36); Albumin 4.1 g/dL (3.5-5.0); Alkaline Phosphatase 74 U/L (38-126); Anion Gap 11 mmol/L; Blood Urea Nitrogen 8 mg/dL (7-17); Calcium 9.7 mg/dL (8.4-10.2); Carbon Dioxide 27 mmol/L (22-30); Chloride 99 mmol/L (98-107); Glucose 87 mg/dL (74-99); Potassium 4.5 mmol/L (3.5-5.1); Sodium 137 mmol/L (137-145); Total Bilirubin 0.2 mg/dL (0.2-1.3); Total Protein 6.8 g/dL (6.3-8.2)
[2017-03-12] MEDS: ONDANSETRON 4 MG/2 ML VIAL IVP PRN (07:47)
[2017-03-12] MEDS: DIVALPROEX ER 500 MG TAB.ER.24H PO SCH (09:03)
[2017-03-12] MEDS: levETIRAcetam 500 MG TAB PO SCH (09:03)
[2017-03-12] MEDS: DOCUSATE 100 MG CAP PO SCH (09:03)
[2017-03-12] MEDS: CLOPIDOGREL 75 MG TAB PO SCH (09:03)
[2017-03-12] MEDS: FAMOTIDINE 20 MG TAB PO SCH (09:03)
[2017-03-12] MEDS: LISINOPRIL 20 MG TAB PO SCH (09:03)
[2017-03-12] MEDS: DICYCLOMINE 10 MG CAP PO SCH (09:03)
[2017-03-12] MEDS: HYDROCHLOROTHIAZIDE 25 MG TAB PO SCH (09:04)
[2017-03-12] MEDS: ASPIRIN 325 MG TAB PO SCH (09:04)
[2017-03-12] MEDS: LACTOBACILLUS ACIDOPH & BULGAR 1 EACH PACKET PO SCH ×2 (09:04→09:09)
[2017-03-12] MEDS: NICOTINE 21MG/24HR PATCH TRANSDERM SCH (09:04)
[2017-03-12] MEDS: HEPARIN SODIUM,PORCINE 5,000 UNIT/ML 1 ML VIAL SQ SCH (09:04)
[2017-03-12 09:58] VITALS: RESP 20
--- NOTE | 2017-03-12 11:28 | P.DS ---
Providers Date of admission: 03/08/17 13:19 Expected date of discharge: 03/12/17 Attending physician: Micah West Consults: 03/08/17 13:21 Consult Physician Routine Consulting Provider: Kelsie Linton Consult Reason/Comments: CVA , stroke scale of 2, some improvement in symptoms Do you want consulting provider notified?: Yes 03/09/17 12:40 Consult Physician Routine Consulting Provider: Dayne Veronica Consult Reason/Comments: inpatient rehab Do you want consulting provider notified?: Yes Primary care physician: Juana Garcia Hospital Course: Discharge diagnosis 1. Acute ischemic stroke with Slurred speech with left facial droop and left arm and leg weakness. Computed tomography scan of the brain shows no acute stroke. Unable to have MRI due to her aneurysmal clipping. Patient seen by neurology. Neurology consulted. CTA of the head and neck Limited been no evidence of any aneurysm. EKG normal sinus rhythm. No evidence of any arrhythmia. Echo shows an EF of 50-55% no valvular abnormality. Repeat computed tomography scan of the brain shows no stroke. EEG normal. Not on a statin due to an ALLERGY. 2. Leukocytosis: Resolved. Possibly reactive. Patient asymptomatic for any infections. Chest x-ray was negative. 3. Nicotine dependence: Discussed smoking cessation. Add nicotine patch 4. Prior history of brain aneurysm with brain bleed requiring clipping in 2005 5. History of fibromyalgia and chronic pain. Patient has TENS unit 6. Essential hypertension 7. Hyperlipidemia 8. Migraines 9. Seizure disorder after stroke and brain bleed. Last seizure 2015. Depakote level low. Neurology has ordered 1 dose of IV Depakote. 10. Left leg pain: Resolved. Doppler negative for DVT Hospital course This is a 52-year-old female, patient of Dr. Garcia. She has a known past medical history of CVA with intracerebral bleeding due to an aneurysm which required clipping in 2005. Also history of multiple TIAs. Last TIA a couple years ago. History of hypertension, hyperlipidemia, migraine headaches, seizure disorder after the brain bleed. Last seizure was December 2015. Patient presented to her neurologist office, Dr. Linton for routine visit. Point it was around 9:15. While she was in the office patient started slurring her words and having evidence of a left facial droop. Now she is having left- sided weakness in the upper and lower extremity as well as a left-sided numbness. Dr. Linton sent her to the emergency room. Patient has been seen evaluated in the ER. She is been taking her medications as prescribed. She is still smoking about a pack a day. Patient does report having a bad reaction to Namenda that was started a week or so ago. Her last dose was last . She reports that she had memory loss and had blacked out. Patient doesn't having some mild shortness of breath. She denies any fever, chills, sweats, cough, bowel movement changes or urinary symptoms. Denies a chest pain. CTA of the head and neck shows no snacking in diameter reduction to account for patient's symptoms. CTA of the [place] limited study although radiologist did not see any evidence of aneurysm. Echo has been ordered. Patient has been placed on remote telemetry. She does not report any history of arrhythmias. EKG shows a normal sinus rhythm. Computed tomography scan of the brain revealing age-related atrophic and chronic small vessel ischemic changes without acute intracranial process. Changes of prior aneurysmal clipping with the limiting streak artifact. Chest x-ray negative. Patient has been placed on full aspirin and Plavix restarted. Patient still has some residual left-sided weakness. However, symptoms are improving. She has worked with physical therapy. She is able to ambulate with walker. Patient wants to proceed with home with home care and physical therapy. Patient seen evaluated by neurology. They're recommending continue with aspirin 81 mg daily and her Plavix. I discussed with patient the importance of smoking cessation. Nicotine patch prescription has been given. Patient is medically stable for discharge. Full gas it was also added to her regimen of medications due to an elevated homocysteine level. Patient will follow-up with neurology in the outpatient setting. I performed an examination of the patient and discussed their management with the physician [employer]. I have reviewed the Physician [employer]'s notes and agree with the documented findings and plan of care Patient Condition at Discharge: Stable Plan - Discharge Summary Discharge Rx Participant: Yes New Discharge Prescriptions: New Qzosgtamjnlgxq-YP-Quzcpcecku [Folbic] 1 each PO DAILY@1200 #30 tab Nicotine 21Mg/24Hr Patch [Habitrol] 1 patch TRANSDERM DAILY #30 patch Continue Ibuprofen [Motrin] 800 mg PO BID PRN PRN Reason: Pain Cetirizine HCl 10 mg PO DAILY PRN PRN Reason: Allergy Symptoms Multivitamins, Thera [Multivitamin (formulary)] 1 tab PO DAILY LORazepam [Ativan] 0.5 mg PO BID PRN PRN Reason: Anxiety Dicyclomine [Bentyl] 10 mg PO BID PRN PRN Reason: Ranitidine HCl [Zantac] 150 mg PO BID Clopidogrel [Plavix] 75 mg PO DAILY levETIRAcetam [Keppra] 1,000 mg PO BID Cyclobenzaprine [Flexeril] 10 mg PO HS Gemfibrozil [Lopid] 600 mg PO AC-BID HYDROcodone/APAP 7.5-325MG [[place] 7.5-325] 1 tab PO DAILY PRN PRN Reason: Pain Ergocalciferol (Vitamin D2) [Vitamin D2] 50,000 unit PO Q30D Norgestimate-Ethinyl Estradiol [Sprintec 28 Day Tablet] 1 tab PO DAILY Albuterol Inhaler [Ventolin Hfa Inhaler] 1 - 2 puff INHALATION RT-Q6H PRN PRN Reason: sob Testosterone Cypionate [Depo-Testosterone] 200 mg IM Q28D Scopolamine 1.5MG/72Hr Patch [TransDerm Scop] 1 patch TRANSDERM Q72H Pantoprazole Sodium [Protonix] 40 mg PO DAILY L.acidoph,Paracasei, B.lactis [Probiotic] 1 cap PO DAILY Hydrochlorothiazide [Hydrodiuril] 25 mg PO DAILY Divalproex ER [Depakote ER] 1,000 mg PO BID Benazepril HCl 20 mg PO DAILY Ascorbic Acid [Vitamin C] 500 mg PO BID Ondansetron HCl [Zofran] 8 mg PO DAILY PRN PRN Reason: Nausea Lidocaine 5% Patch [Lidoderm 5% Patch] 1 patch TRANSDERM DAILY PRN PRN Reason: Pain Aspirin 81 mg PO DAILY Discharge Medication List Cetirizine HCl 10 mg PO DAILY PRN 09/07/13 [History] Dicyclomine [Bentyl] 10 mg PO BID PRN 09/07/13 [History] Ibuprofen [Motrin] 800 mg PO BID PRN 09/07/13 [History] LORazepam [Ativan] 0.5 mg PO BID PRN 09/07/13 [History] Multivitamins, Thera [Multivitamin (formulary)] 1 tab PO DAILY 09/07/13 [History ] Ranitidine HCl [Zantac] 150 mg PO BID 09/07/13 [History] Clopidogrel [Plavix] 75 mg PO DAILY 02/16/14 [History] Cyclobenzaprine [Flexeril] 10 mg PO HS 10/09/14 [History] levETIRAcetam [Keppra] 1,000 mg PO BID 10/09/14 [History] Gemfibrozil [Lopid] 600 mg PO AC-BID 07/07/16 [History] Ergocalciferol (Vitamin D2) [Vitamin D2] 50,000 unit PO Q30D 10/19/16 [History] HYDROcodone/APAP 7.5-325MG [[place] 7.5-325] 1 tab PO DAILY PRN 10/19/16 [History] Norgestimate-Ethinyl Estradiol [Sprintec 28 Day Tablet] 1 tab PO DAILY 10/31/16 [History] Albuterol Inhaler [Ventolin Hfa Inhaler] 1 - 2 puff INHALATION RT-Q6H PRN [History] Ascorbic Acid [Vitamin C] 500 mg PO BID 03/08/17 [History] Aspirin 81 mg PO DAILY 03/08/17 [History] Benazepril HCl 20 mg PO DAILY 03/08/17 [History] Divalproex ER [Depakote ER] 1,000 mg PO BID 03/08/17 [History] Hydrochlorothiazide [Hydrodiuril] 25 mg PO DAILY 03/08/17 [History] L.acidoph,Paracasei, B.lactis [Probiotic] 1 cap PO DAILY 03/08/17 [History] Lidocaine 5% Patch [Lidoderm 5% Patch] 1 patch TRANSDERM DAILY PRN 03/08/17 [ History] Ondansetron HCl [Zofran] 8 mg PO DAILY PRN 03/08/17 [History] Pantoprazole Sodium [Protonix] 40 mg PO DAILY 03/08/17 [History] Scopolamine 1.5MG/72Hr Patch [TransDerm Scop] 1 patch TRANSDERM Q72H 03/08/17 [ History] Testosterone Cypionate [Depo-Testosterone] 200 mg IM Q28D 03/08/17 [History] Xhxnbuhlvhcgsn-AB-Rakasmdwoc [Folbic] 1 each PO DAILY@1200 #30 tab 03/12/17 [Rx] Nicotine 21Mg/24Hr Patch [Habitrol] 1 patch TRANSDERM DAILY #30 patch 03/12/17 [ Rx] Follow up Appointment(s)/Referral(s): Kelsie Linton MD [STAFF PHYSICIAN] - 2 Weeks (Spoke to secretary receptionist. Office will call with appointment time.) Juana Garcia MD [Primary Care Provider] - 03/14/17 10:30 am (Sunday) Patient Instructions/Handouts: Stroke (DC) Activity/Diet/Wound Care/Special Instructions: Diet: cardiac Activity: as tolerated STOP smoking Discharge Disposition: HOME WITH HOME HEALTH SERVICES
[2017-03-12 11:39] VITALS: BP 125/88; PULSE 101; TEMP 97
[2017-03-12] MEDS: CYANOCOBALAMIN-FA-PYRIDOXINE 1 EACH TAB PO SCH (12:03)
[2017-03-12] MEDS: MULTIVITAMINS, THERA 1 EACH TAB PO SCH (12:03)
== END 2017-03-12 12:01 | disposition home health service (06) | DRG 65 ==
LOC: EC 09:51 → 6SEL 13:19
PROVIDERS: ADMIT Internal Medicine; ATTEND Internal Medicine
DX: I63.9 Cerebral infarction, unspecified (principal); G81.94 Hemiplegia, unspecified affecting left nondominant side; G62.9 Polyneuropathy, unspecified; R29.810 Facial weakness; R29.701 NIHSS score 1; F17.210 Nicotine dependence, cigarettes, uncomplicated; E78.5 Hyperlipidemia, unspecified; G89.29 Other chronic pain; M79.7 Fibromyalgia; I10 Essential (primary) hypertension; G43.909 Migraine, unspecified, not intractable, without status migrainosus; G40.909 Epilepsy, unspecified, not intractable, without status epilepticus; R00.0 Tachycardia, unspecified; F41.0 Panic disorder [episodic paroxysmal anxiety]; R26.9 Unspecified abnormalities of gait and mobility; K21.9 Gastro-esophageal reflux disease without esophagitis; D64.9 Anemia, unspecified; R47.01 Aphasia; M79.605 Pain in left leg; Z88.1 Allergy status to other antibiotic agents; Z88.8 Allergy status to other drugs, medicaments and biological substances; Z79.899 Other long term (current) drug therapy; Z79.02 Long term (current) use of antithrombotics/antiplatelets; Z79.82 Long term (current) use of aspirin; Z79.891 Long term (current) use of opiate analgesic; Z79.1 Long term (current) use of non-steroidal anti-inflammatories (NSAID); Z80.0 Family history of malignant neoplasm of digestive organs; Z81.1 Family history of alcohol abuse and dependence; Z90.89 Acquired absence of other organs; Z90.49 Acquired absence of other specified parts of digestive tract; Z87.820 Personal history of traumatic brain injury; Z86.73 Personal history of transient ischemic attack (TIA), and cerebral infarction without residual deficits; Z86.79 Personal history of other diseases of the circulatory system; Z71.6 Tobacco abuse counseling
CPT/HCPCS: 36415; 70450; 70496; 70498; 71046; 80053; 80061; 80164; 82550; 82553; 82728; 83090; 83540; 83550; 84484; 85025; 85610; 85730; 93005; 93306; 94760; 95819; 96360; 96361; 99291

== ENCOUNTER → 2017-04-05 | Outpatient (CLI) | payer MEDICARE, OTHER ==
[2017-04-05 09:15] LABS: D-Dimer 0.33 mg/L FEU (<0.60); Partial Thromboplastin Time 23.3 sec (22.0-30.0); Prothrombin Time 9.6 sec (9.0-12.0)
[2017-04-05 17:26] LABS: Cardiolipin Ab IgG Interp NEGATIVE (NEGATIVE); Cardiolipin Ab IgM Interp NEGATIVE (NEGATIVE); Cardiolipin IgA Antibody 0.8 U/mL; Cardiolipin IgM Antibody 2.6 U/mL
[2017-04-05 17:51] LABS: Hepatitis A Antibody IgM Non-Reactive (Non-Reactive); Hepatitis B Core IgM Non-Reactive (Non-Reactive)
[2017-04-06 03:44] LABS: EBV - EA (IgG) 48.1 U/mL (<9.0); EBV - VCA IgM <10.0 U/mL (<36.0)
[2017-04-06 12:37] LABS: Anti-Thrombin III Antigen 104 % (80 - 120)
[2017-04-06 12:38] LABS: Protein S Antigen 103 % (50 - 140)
[2017-04-06 14:33] LABS: Protein C Antigen 160 % (72-160)
[2017-04-06 14:35] LABS: APTT 38 Sec(s) (<43); Dilute Russell Viper Venom 43 Sec(s) (<44)
[2017-04-06 15:28] LABS: Protein C (Activity) 145 % (71-138)
[2017-04-06 15:35] LABS: Anti-Thrombin III Activity 135 % (79-109)
== END | disposition home or self-care (01) ==
LOC: LABWHC1 07:17
PROVIDERS: ATTEND Psychiatry & Neurology Pain Medicine
DX: I63.9 Cerebral infarction, unspecified (principal)
CPT/HCPCS: 36415; 80074; 81240; 81241; 81291; 83090; 83519; 84403; 85240; 85300; 85301; 85302; 85303; 85305; 85306; 85379; 85384; 85610; 85613; 85652; 85670; 85730; 86038; 86140; 86147; 86255; 86480; 86663; 86664; 86665

== ENCOUNTER → 2017-05-21 | Day surgery (SDC) | payer MEDICARE, OTHER ==
[2017-05-14 11:54] VITALS: BMI 25.9
[~2017-05-21] MED LIST changes: -DEXAMETHASONE SOD PHOSPHATE 10 MG/ML 1 ML VIAL IV ONE; -HEPARIN SODIUM,PORCINE 5,000 UNIT/ML 1 ML VIAL SQ ONE; -LACTATED RINGERS 1,000 ML IV SCH; -MIDAZOLAM 2 MG/2 ML VIAL IV PRN; +MIDAZOLAM 2 MG/2 ML VIAL ONE; -ONDANSETRON 4 MG/2 ML VIAL IVP ONE; +SODIUM CHLORIDE 0.9% 1,000 ML IV SCH; +SODIUM CHLORIDE 0.9% 250 ML IV ONE; +fentaNYL (PF) 50 MCG/ML 2 ML AMP IVP ONE; +fentaNYL (PF) 50 MCG/ML 2 ML AMP ONE
[2017-05-21 07:18] VITALS: RESP 16
[2017-05-21] MEDS: BENZOCAINE SPRAY 1 CAN TOPICAL ONE ×3 (07:29→07:42)
[2017-05-21] MEDS: MIDAZOLAM 2 MG/2 ML VIAL IVP ONE ×2 (07:42→07:46)
--- NOTE | 2017-05-21 08:18 | ECHOT ---
TRANSESOPHAGEAL ECHOCARDIOGRAM INDICATION: TIA. PROCEDURE NOTE: After obtaining informed consent, transesophageal echocardiogram was performed in left lateral position using an Omniplane probe. Local and IV sedation were obtained using 2 mg of Versed and fentanyl. The patient tolerated the procedure well without any obvious immediate complications. The patient received moderate conscious sedation. Total sedation time was 8 minutes. FINDINGS: 1. There is no intracardiac thrombus within the left atrial appendage, left atrium, right atrium, right ventricle. 2. Interatrial septum shows lipomatosis hypertrophy, but there is no evidence of left- to-right shunt by color flow Doppler or [id number] shunt by agitated saline contrast study. 3. Mitral valve appears anatomically normal. There is trace mitral regurgitation noted. 4. Aortic valve is a 3-leaflet valve. There is no evidence of aortic stenosis or regurgitation. 5. Tricuspid valve shows mild tricuspid regurgitation. 6. Left ventricle has normal size and systolic function. 7. Aorta is free of aneurysm and there are mild atherosclerotic changes noted. CONCLUSIONS: 1. No intracardiac thrombus. 2. Normal left ventricular systolic function. 3. No evidence of shunting across the interatrial septum. MMODL / IJN: [id number] /
[2017-05-21 09:19] VITALS: BP 122/75; PULSE 100; TEMP 98.2
== END ==
LOC: CATHCVL 06:14
PROVIDERS: ATTEND Internal Medicine Cardiovascular Disease
DX: I08.1 Rheumatic disorders of both mitral and tricuspid valves (principal); I70.0 Atherosclerosis of aorta; G45.1 Carotid artery syndrome (hemispheric); I69.320 Aphasia following cerebral infarction; I69.359 Hemiplegia and hemiparesis following cerebral infarction affecting unspecified side; I69.392 Facial weakness following cerebral infarction; I10 Essential (primary) hypertension; F17.210 Nicotine dependence, cigarettes, uncomplicated; Z79.02 Long term (current) use of antithrombotics/antiplatelets; Z79.82 Long term (current) use of aspirin; Z79.3 Long term (current) use of hormonal contraceptives; Z79.1 Long term (current) use of non-steroidal anti-inflammatories (NSAID); Z79.899 Other long term (current) drug therapy; Z88.8 Allergy status to other drugs, medicaments and biological substances
CPT/HCPCS: 93312; 93320; 93325; J2250; J3010

== ENCOUNTER 2017-07-19 11:40 | Day surgery (SDC) | payer MEDICARE, OTHER ==
[2017-07-13 16:02] VITALS: BMI 26.5
[~2017-07-19 11:40] MED LIST changes: -MIDAZOLAM 2 MG/2 ML VIAL ONE; -SODIUM CHLORIDE 0.9% 250 ML IV ONE; -fentaNYL (PF) 50 MCG/ML 2 ML AMP IVP ONE; -fentaNYL (PF) 50 MCG/ML 2 ML AMP ONE
[2017-07-19 12:38] VITALS: RESP 18; TEMP 98.4
[2017-07-19] MEDS ORDERED: ceFAZolin IN SWFI 2 GM/20 ML SYRINGE IVP ONE (14:15)
[2017-07-19] MEDS: MIDAZOLAM 2 MG/2 ML VIAL IVP ONE ×3 (15:07→15:15)
[2017-07-19] MEDS ORDERED: fentaNYL (PF) 50 MCG/ML 2 ML AMP IV ONE (15:15)
--- NOTE | 2017-07-19 15:38 | P.PCN ---
Preoperative Diagnosis: Loop monitor implant Primary physicians: Dr. Garcia and Dr. Linton/Aroldo Corcoran Dry [employer] Operator Helper: Dr. Walker Indication: Ectogenic stroke Patient was brought to the EP lab in a fasting state. Written informed consent was obtained prior to the procedure. The left pectoral area was prepped and draped per protocol. Intravenous antibiotic was administered preoperatively. A subcutaneous Loop monitor was implanted successfully and the wound was closed per protocol. The device was programmed to detect significant singh- arrhythmic and tachy-arrhythmic events, per protocol. Device and programming details: Standard programming for tachycardia- bradycardia and atrial fibrillation and cryptogenic stroke Patient underwent EP procedure under conscious sedation/moderate sedation, monitoring of the level of consciousness and physiologic parameters including but not limited to vital signs and oxygenation. Patient tolerated the procedure well without any acute complications. Start time: 1511 Stop time: 1525 Condition: stable Disposition: same day
[2017-07-19 16:44] VITALS: BP 135/86; PULSE 86
== END 2017-07-19 16:25 | disposition home or self-care (01) ==
LOC: CATHEP 11:40
PROVIDERS: ATTEND Internal Medicine Clinical Cardiac Electrophysiology
DX: I63.9 Cerebral infarction, unspecified (principal); I48.91 Unspecified atrial fibrillation; I10 Essential (primary) hypertension; E78.5 Hyperlipidemia, unspecified; F17.210 Nicotine dependence, cigarettes, uncomplicated; Z79.82 Long term (current) use of aspirin; Z79.02 Long term (current) use of antithrombotics/antiplatelets; Z79.899 Other long term (current) drug therapy; Z88.8 Allergy status to other drugs, medicaments and biological substances; Z79.1 Long term (current) use of non-steroidal anti-inflammatories (NSAID)
CPT/HCPCS: 33282; C1764; J2250; J3010; J0690

== ENCOUNTER → 2017-10-04 | Outpatient (CLI) | payer MEDICARE, OTHER ==
[2017-10-04 08:11] LABS: ALT 37 U/L (9-52); AST 29 U/L (14-36); Albumin 4.4 g/dL (3.5-5.0); Alkaline Phosphatase 85 U/L (38-126); Anion Gap 9 mmol/L; Blood Urea Nitrogen 12 mg/dL (7-17); Calcium 9.6 mg/dL (8.4-10.2); Carbon Dioxide 26 mmol/L (22-30); Chloride 105 mmol/L (98-107); Creatine Kinase 71 U/L (30-135); Glucose 84 mg/dL (74-99); Potassium 4.2 mmol/L (3.5-5.1); Sodium 140 mmol/L (137-145); Total Bilirubin 0.2 mg/dL (0.2-1.3); Total Protein 7.1 g/dL (6.3-8.2)
== END | disposition home or self-care (01) ==
LOC: LABWHC1 07:18
PROVIDERS: ATTEND Psychiatry & Neurology Pain Medicine
DX: M79.1 Myalgia (principal)
CPT/HCPCS: 36415; 80053; 82550

== ENCOUNTER 2017-10-18 10:46 | Emergency (ER) | payer MEDICARE, OTHER ==
[2017-10-18] MEDS ORDERED: SODIUM CHLORIDE 0.9% 1,000 ML IV STA (11:10)
[2017-10-18] MEDS ORDERED: DIVALPROEX 500 MG TABLET.DR PO STA (11:27)
[2017-10-18] MEDS ORDERED: levETIRAcetam 500 MG TAB PO STA (11:27)
[2017-10-18 11:37] LABS: Basophils % (A) 0 %; Eosinophils # (A) 0.2 k/uL (0-0.7); Eosinophils % (A) 2 %; HCT 38.1 % (34.0-46.0); HGB 13.2 gm/dL (11.4-16.0); Lymphocytes # (A) 2.4 k/uL (1.0-4.8); Lymphocytes % (A) 25 %; MCH 30.7 pg (25.0-35.0); MCHC 34.7 g/dL (31.0-37.0); MCV 88.6 fL (80.0-100.0); Mean Platelet Volume 6.7; Monocytes # (A) 0.4 k/uL (0-1.0); Monocytes % (A) 4 %; Neutrophils # (A) 6.6 k/uL (1.3-7.7); Neutrophils % (A) 68 %; Platelet Count 471 k/uL (150-450); RDW 12.1 % (11.5-15.5); WBC 9.8 k/uL (3.8-10.6)
--- NOTE | 2017-10-18 11:50 | ED ---
Seizure HPI - General Chief Complaint: Seizure Stated Complaint: seizure Time Seen by Provider: 10/18/17 11:03 Source: EMS, RN notes reviewed Mode of arrival: EMS Limitations: no limitations - History of Present Illness Initial Comments: This is a 52-year-old female past medical history of previous TIA/CVA in February 2017, previous aneurysm coiling, seizure disorder on Keppra and Depakote 1000 mg each twice a day (last seizure 2015), chronic migraines, hypertension hyperlipidemia who presents today for chief complaint of seizure. Around 10:30 AM this morning patient was at her neurologist appointment with Dr. Linton when she was sitting in the bed she stated that she had a tonic- clonic seizure. Pt did not fall, hit head or injury any extremity. No incontinence. EMS was called upon EMS arrival patient was alert and oriented 4. Patient stated that she forgot to take her Depakote and Keppra this morning , and she has forgotten multiple times this week to take her dosage. Procedure patient complains of a headache, she states this is a 10 out of 10 located to the posterior aspect of her head, she describes as throbbing in nature and states that this feels like her normal every day migraine. She denies any differences today. Patient denies any speech changes, dysphasia, upper or lower extremity weakness, memory loss, ataxia, gait changes or any other symptoms prior to today. Upon arrival emergency department stay patient's vital signs stable, alert and oriented 4. No evidence of focal neurological deficits , aside from her mild left sided weakness that she states has been her baseline since stroke in February. - Related Data Home Medications Medication Instructions Recorded Confirmed Cetirizine HCl 10 mg PO DAILY 09/07/13 10/18/17 Dicyclomine [Bentyl] 10 mg PO BID 09/07/13 10/18/17 Ibuprofen [Motrin] 800 mg PO BID PRN 09/07/13 10/18/17 LORazepam [Ativan] 0.5 mg PO BID PRN 09/07/13 10/18/17 Multivitamins, Thera [Multivitamin 1 tab PO DAILY 09/07/13 10/18/17 (formulary)] Ranitidine HCl [Zantac] 150 mg PO BID PRN 09/07/13 10/18/17 Clopidogrel [Plavix] 75 mg PO DAILY 02/16/14 10/18/17 levETIRAcetam [Keppra] 1,000 mg PO BID 10/09/14 10/18/17 Gemfibrozil [Lopid] 600 mg PO AC-BID 07/07/16 10/18/17 Ergocalciferol (Vitamin D2) 50,000 unit PO Q30D 10/19/16 10/18/17 [Vitamin D2] HYDROcodone/APAP 7.5-325MG [[place] 1 tab PO BID PRN 10/19/16 10/18/17 7.5-325] Albuterol Inhaler [Ventolin Hfa 1 - 2 puff INHALATION RT-Q6H PRN 03/08/17 Inhaler] Aspirin 81 mg PO DAILY 03/08/17 10/18/17 Benazepril HCl 20 mg PO DAILY 03/08/17 10/18/17 Divalproex ER [Depakote ER] 1,000 mg PO BID 03/08/17 10/18/17 Hydrochlorothiazide [Hydrodiuril] 25 mg PO DAILY 03/08/17 10/18/17 Lidocaine 5% Patch [Lidoderm 5% 1 patch TRANSDERM DAILY PRN 03/08/17 10/18/17 Patch] Ondansetron HCl [Zofran] 8 mg PO DAILY PRN 03/08/17 10/18/17 Pantoprazole Sodium [Protonix] 40 mg PO DAILY 03/08/17 10/18/17 Scopolamine 1.5MG/72Hr Patch 1 patch TRANSDERM Q72H PRN 03/08/17 10/18/17 [TransDerm Scop] Cyclobenzaprine HCl 20 mg PO HS 05/14/17 10/18/17 Cyclobenzaprine [Flexeril] 10 mg PO DAILY 10/18/17 10/18/17 Allergies Allergy/AdvReac Type Severity Reaction Status Date / Time Xshktqr-Xdh-Tet Reductase Allergy Severe Rash/Hives Verified 10/18/17 12:02 Inhibitor levofloxacin [From Levaquin] Allergy Swelling Verified 10/18/17 12:02 naratriptan HCl [From Amerge] Allergy "caused Verified 10/18/17 12:02 equilibrium to be off" migraine medications AdvReac Severe causes Uncoded 07/13/17 14:46 seizures Review of Systems ROS Statement: Those systems with pertinent positive or pertinent negative responses have been documented in the HPI. ROS Other: All systems not noted in ROS Statement are negative. Constitutional: Denies: fever, chills, night sweats ENT: Denies: ear pain, throat pain Respiratory: Denies: cough, dyspnea Cardiovascular: Denies: chest pain, palpitations Endocrine: Denies: fatigue Gastrointestinal: Denies: abdominal pain, nausea, vomiting Genitourinary: Denies: urgency, dysuria Musculoskeletal: Denies: back pain Skin: Denies: rash, lesions Neurological: Reports: headache. Denies: weakness, numbness, paresthesias, confusion, abnormal gait Past Medical History Past Medical History: COPD, CVA/TIA, Fibromyalgia, GERD/Reflux, Hyperlipidemia, Hypertension, Neurologic Disorder, Seizure Disorder Additional Past Medical History / Comment(s): LAST SEIZURE 12/2015 (Now 10/18/2017 ) ,severe migraines from brain aneurysm, TIA x6, LEFT ARM WEAKNESS, NEUROPATHY MATT LEGS, memory loss , occ vertigo, recent UTI now resolved, see Dr Walker H & P History of Any Multi-Drug Resistant Organisms: None Reported Past Surgical History: Appendectomy, Cholecystectomy, Tonsillectomy, Uterine Ablation Additional Past Surgical History / Comment(s): r lung surgery top portion lung removed, (STATES R/T FUNGUS) Has implanted TENS unit in back of head WITH BATTERY PACK IN BACK; surgical revision done by Dr. Linton in September 2013, "brain sx for aneurysm has a coil" Past Anesthesia/Blood Transfusion Reactions: No Reported Reaction Additional Past Anesthesia/Blood Transfusion Reaction / Comment(s): STATES VERY HARD IV START Past Psychological History: Anxiety, Panic Disorder Smoking Status: Current every day smoker - Past Family History Father Family Medical History: Liver Disease Additional Family Medical History / Comment(s): ALCOHOLIC CIRRHOISIS Sister(s) Family Medical History: Cancer Mother Family Medical History: Cancer Additional Family Medical History / Comment(s): COLON Brother(s) Family Medical History: Cancer Additional Family Medical History / Comment(s): COLON General Exam - General Exam Comments Initial Comments: General: The patient is awake and alert, in no distress, and does not appear acutely ill. Eye: Pupils are equal, round and reactive to light, extra-ocular movements are intact. No nystagmus. There is normal conjunctiva bilaterally. No signs of icterus. Ears, nose, mouth and throat: There are moist mucous membranes and no oral lesions. Neck: The neck is supple, there is no tenderness or JVD. Cardiovascular: There is a regular rate and rhythm. No murmur, rub or gallop is appreciated. Respiratory: Lungs are clear to auscultation, respirations are non-labored, breath sounds are equal. No wheezes, stridor, rales, or rhonchi. Musculoskeletal: Normal ROM, no tenderness. Strength 5/5. Sensation intact. Pulses equal bilaterally 2+. Neurological: A&O x 4. CN II-XII intact, memory intact to immediately, intermediate and mcfp recall. Able to follow simple verbal. Able to name a common object (pen). High quality, labial (pa) and lingual (la) speech. Low quality posterior pharynx/larynx (ga) voice sounds. Able to express general knowledge (days in a week). No hemineglect or inattention noted. Finger agnosia (-) and spatially oriented (identified L index finger touched R shoulder with L index finger). Light touch and temperature sensation present over the face, chest, abdomen, back, UE bilaterally, and LE bilaterally. Able to localize point during point localization b/l and extinction. No visible bulk atrophy, hypertrophy, fasciculations, or myoclonus of the UE or LE b/l. Full PROM in UE and LE b/l. Bilateral muscle strength 5/5 for the following muscles, left side mild weakness in comparison with right LE >UE: deltoid, biceps, triceps, brachioradialis, wrist extensors/flexor, hip flexor, hip abductors/ adductors, hamstrings, quadriceps, feet dorsiflexors/plantar flexors. Finger to nose, finger to the examiners finger, and heel to segura coordinated and accurate b/l. Coordinated and even demonstration of hand flip, finger to thumb, and toe tap b/l. (-) Babinski. +2 brachioradialis, triceps, patellar, and Achilles DTR b/l. (-) primitive reflexes. Gait is coordinated and even in stride with tandem, toe and heel walk. Maintains balance with monopedal stance. (-) Romberg. (-) pronator drift. No nuchal rigidity. (-) Brudzinskis and Kernig signs. Skin: Skin is warm and dry and no rashes or lesions are noted. Psychiatric: Cooperative, appropriate mood & affect, normal judgment. Limitations: no limitations Course Vital Signs 10/18/17 10/18/17 11:00 12:46 Temperature 98.1 F 98.0 F Pulse Rate 88 83 Respiratory 18 16 Rate Blood Pressure 137/77 124/72 O2 Sat by Pulse 98 99 Oximetry Medical Decision Making - Medical Decision Making This is a 52-year-old female with past medical history of seizure disorder who has been consistently noncompliant with her medications for the past week. Neurological exam WNL. CBC, CMP, UA, CT without contrast, all within normal limits. CT was compared to previous, revealing no acute changes. Urine drug and alcohol (-). Pt Valproic acid level subtherapeutic, patient denied taking home doses 100mg of Valproic and Keppra twice a day. She was given her home morning doses. Keppra levels pending. 12 lead EKG revealed QT prolongation this was obtained after zofran administration. Pt stated she is following cardiology which she did not disclose prior and has a loop monitor. Pt denies any symptoms. Pt headache resolved following norco administration and zofran. She stated she was feeling much better. Repeat neurological exam, no focal deficits. Eosinophil patient's seizure was caused due to subtherapeutic levels of Keppra and valproic acid. Case discussed in detail Dr. Justice. At this time feel patient is stable for discharge. It was emphasized the patient the need for compliance with all antiepileptic, as well as neurological follow-up. Patient verbalized agreement. Patient is discharged in stable condition.. - Lab Data Result diagrams: 10/18/17 11:27 10/18/17 11:27 Lab Results 10/18/17 10/18/17 10/18/17 Range/Units 11:27 11:27 12:05 WBC 9.8 (3.8-10.6) k/uL RBC 4.30 (3.80-5.40) m/uL Hgb 13.2 (11.4-16.0) gm/dL Hct 38.1 (34.0-46.0) % MCV 88.6 (80.0-100.0) fL MCH 30.7 (25.0-35.0) pg MCHC 34.7 (31.0-37.0) g/dL RDW 12.1 (11.5-15.5) % Plt Count 471 H (150-450) k/uL Neutrophils % 68 % Lymphocytes % 25 % Monocytes % 4 % Eosinophils % 2 % Basophils % 0 % Neutrophils # 6.6 (1.3-7.7) k/uL Lymphocytes # 2.4 (1.0-4.8) k/uL Monocytes # 0.4 (0-1.0) k/uL Eosinophils # 0.2 (0-0.7) k/uL Basophils # 0.0 (0-0.2) k/uL Sodium 137 (137-145) mmol/L Potassium 3.6 (3.5-5.1) mmol/L Chloride 101 (98-107) mmol/L Carbon Dioxide 23 (22-30) mmol/L Anion Gap 13 mmol/L BUN 12 (7-17) mg/dL Creatinine 0.44 L (0.52-1.04) mg/dL Est GFR (CKD-EPI)AfAm >90 (>60 ml/min/1.73 sqM) Est GFR (CKD-EPI)NonAf >90 (>60 ml/min/1.73 sqM) Glucose 88 (74-99) mg/dL Calcium 10.0 (8.4-10.2) mg/dL Total Bilirubin 0.3 (0.2-1.3) mg/dL AST 30 (14-36) U/L ALT 39 (9-52) U/L Alkaline Phosphatase 117 (38-126) U/L Total Protein 7.9 (6.3-8.2) g/dL Albumin 4.9 (3.5-5.0) g/dL Urine Color Light Yellow Urine Appearance Clear (Clear) Urine pH 6.5 (5.0-8.0) Ur Specific [place] 1.006 (1.001-1.035) Urine Protein Negative (Negative) Urine Glucose (UA) Negative (Negative) Urine Ketones Negative (Negative) Urine Blood Negative (Negative) Urine Nitrite Negative (Negative) Urine Bilirubin Negative (Negative) Urine Urobilinogen <2.0 (<2.0) mg/dL Ur Leukocyte Esterase Negative (Negative) Urine Opiates Screen Detected H (NotDetected) Ur Oxycodone Screen Not Detected (NotDetected) Urine Methadone Screen Not Detected (NotDetected) Ur Propoxyphene Screen Not Detected (NotDetected) Ur Barbiturates Screen Not Detected (NotDetected) Valproic Acid 23.2 ug/mL U Tricyclic Antidepress Detected H (NotDetected) Ur Phencyclidine Scrn Not Detected (NotDetected) Ur Amphetamines Screen Not Detected (NotDetected) U Methamphetamines Scrn Not Detected (NotDetected) U Benzodiazepines Scrn Not Detected (NotDetected) Urine Cocaine Screen Not Detected (NotDetected) U Marijuana (THC) Screen Not Detected (NotDetected) Serum Alcohol <10 mg/dL - EKG Data -: EKG Interpreted by Me (and Dr. Marcus Justice) Ventricular rate 79 bpm, NM interval 164 ms QRS duration 80 ms, QT 426, QTc 48 ms, there is no ST elevation or depression, T-wave inversion, no apparent arrhythmia. There is mildly prolonged QT. 10/18/17 18:55 Disposition Clinical Impression: Seizure Disposition: HOME SELF-CARE Condition: Good Instructions: Recurrent Seizures in Adults (ED) Additional Instructions: Please use your home medication as discussed, DO NOT MISS DOSE OF ANTIEPILEPTICS. Please follow-up with your neurologist, Dr. Linton in 1-2 days.Please follow-up with your primary care provider for mildly prolonged QTc. Please return to emergency room if the symptoms increase or worsen or for any other concerns as discussed including changes in headache. Is patient prescribed a controlled substance at d/c from ED?: No Referrals: Juana Garcia MD [Primary Care Provider] - 1-2 days Kelsie Linton MD [STAFF PHYSICIAN] - 1-2 days Time of Disposition: 12:34
[2017-10-18 11:51] LABS: ALT 39 U/L (9-52); AST 30 U/L (14-36); Albumin 4.9 g/dL (3.5-5.0); Alcohol <10 mg/dL; Alkaline Phosphatase 117 U/L (38-126); Anion Gap 13 mmol/L; Blood Urea Nitrogen 12 mg/dL (7-17); Carbon Dioxide 23 mmol/L (22-30); Chloride 101 mmol/L (98-107); Glucose 88 mg/dL (74-99); Potassium 3.6 mmol/L (3.5-5.1); Sodium 137 mmol/L (137-145); Total Bilirubin 0.3 mg/dL (0.2-1.3); Total Protein 7.9 g/dL (6.3-8.2)
[2017-10-18 11:56] LABS: Valproic Acid (Depakene) 23.2 ug/mL
--- NOTE | 2017-10-18 12:02 | CT ---
EXAMINATION TYPE: CT brain wo con DATE OF EXAM: 10/18/2017 COMPARISON: Prior CT brain 03/10/2017 HISTORY: Seizure, light sensitivity and pain in head CT DLP: 1046 mGycm Automated exposure control for dose reduction was used. Helical imaging through the brain FINDINGS: There is artifact due to patient's coils at the level of the [place] of [place] likely in the basilar a rtery. No evident hemorrhage or hydrocephalus. Artifact also present due to stimulator coils extendin g to the occipital region. Orbits show symmetric appearance. Paranasal sinuses are well aerated. Calv arium is well aerated. Mastoid air cells are aerated. IMPRESSION: NO ACUTE ABNORMALITY EVIDENT.
[2017-10-18] MEDS ORDERED: HYDROcodone/APAP 5-325MG 1 EACH TAB PO STA (12:07)
[2017-10-18 12:23] LABS: Appearance,Urine Clear (Clear); Bilirubin,Urine Negative (Negative); Blood,Urine Negative (Negative); Color,Urine Light Yellow; Glucose,Urine (UA) Negative (Negative); Ketones,Urine Negative (Negative); Leukocyte Esterase,Urine Negative (Negative); Nitrite,Urine Negative (Negative); PH, Urine 6.5 (5.0-8.0); Protein,Urine Negative (Negative); Specific Gravity,Urine 1.006 (1.001-1.035); Urobilinogen,Urine <2.0 mg/dL (<2.0)
[2017-10-18] MEDS ORDERED: ONDANSETRON ODT 4 MG TAB PO STA ×2 (12:26→12:34)
[2017-10-18 12:34] LABS: Amphetamine Screen,Urine Not Detected (NotDetected); Barbiturate Screen,Urine Not Detected (NotDetected); Benzodiazepines Screen,Urine Not Detected (NotDetected); Cocaine Screen,Urine Not Detected (NotDetected); Methadone Screen, Urine Not Detected (NotDetected); Opiate Screen,Urine Detected (NotDetected); Oxycodone Screen, Urine Not Detected (NotDetected); Phencyclidine Screen,Urine Not Detected (NotDetected); Tricyclic Antidepressant,Urine Detected (NotDetected); Urn Cannabinoid Scrn Not Detected (NotDetected)
[2017-10-18 12:47] VITALS: BP 124/72; PULSE 83; RESP 16; TEMP 98
== END 2017-10-18 13:00 | disposition home or self-care (01) ==
LOC: EC 10:46
DX: G40.909 Epilepsy, unspecified, not intractable, without status epilepticus (principal); R51 Headache; M79.7 Fibromyalgia; K21.9 Gastro-esophageal reflux disease without esophagitis; J44.9 Chronic obstructive pulmonary disease, unspecified; E78.5 Hyperlipidemia, unspecified; I10 Essential (primary) hypertension; G62.9 Polyneuropathy, unspecified; F17.200 Nicotine dependence, unspecified, uncomplicated; Z79.82 Long term (current) use of aspirin; Z79.02 Long term (current) use of antithrombotics/antiplatelets; Z79.899 Other long term (current) drug therapy; Z88.8 Allergy status to other drugs, medicaments and biological substances; Z88.1 Allergy status to other antibiotic agents; Z86.73 Personal history of transient ischemic attack (TIA), and cerebral infarction without residual deficits; Z86.69 Personal history of other diseases of the nervous system and sense organs; Z98.890 Other specified postprocedural states
CPT/HCPCS: 99285; 96360; 36415; 93005; 80164; 80053; 80177; 85025; 81003; 80306; 70450; G0480; 80320

== ENCOUNTER → 2018-01-07 | Outpatient (CLI) | payer MEDICARE, OTHER ==
--- NOTE | 2018-01-07 08:47 | CT ---
EXAMINATION TYPE: CT lumbar spine w con DATE OF EXAM: 01/07/2018 COMPARISON: None HISTORY: 52-year-old female with lumbago, Back pain with pain stimulator TECHNIQUE: Contiguous axial scanning of the lumbar spine performed with IV Contrast, patient injected with 100 mL of Isovue 300. Coronal/sagittal reconstructions performed. CT DLP: 936 mGycm Automated exposure control for dose reduction was used. FINDINGS: Small 7 mm nodularity left adrenal gland statistically represents a tiny adrenal adenoma. Circumaorti c left renal artery. Some bowel surgery is evident in the right lower quadrant. Mild multilevel degenerative disc disease with variable disc bulging. Minimal disc space narrowing es pecially in the lower thoracic spine and thoracolumbar junction. Vertebral body heights are preserved and alignment is maintained. Facet arthropathy mid to lower lumbar spine. No significant spinal canal stenosis is appreciated by CT. On the left, changes result in no significant neural foraminal stenosis. On the right, changes result in mild neuroforaminal stenosis at L3-L4 mild to moderate at L4-L5. Right-sided generator device. IMPRESSION: 1. MILD MULTILEVEL DEGENERATIVE DISC DISEASE. 2. MILD FACET ARTHROPATHY MID TO LOWER LUMBAR SPINE. 3. CHANGES RESULT IN MILD TO MODERATE RIGHT-SIDED NEURAL FORAMINAL STENOSIS AT L4-L5 AND MILD ON THE RIGHT AT L3-L4.
== END | disposition home or self-care (01) ==
LOC: RADXRMAIN 07:14
PROVIDERS: ATTEND Psychiatry & Neurology Neurology
DX: M99.73 Connective tissue and disc stenosis of intervertebral foramina of lumbar region (principal); M51.36 Other intervertebral disc degeneration, lumbar region; M46.86 Other specified inflammatory spondylopathies, lumbar region; Z88.1 Allergy status to other antibiotic agents; Z88.8 Allergy status to other drugs, medicaments and biological substances
CPT/HCPCS: 72132; Q9967

== ENCOUNTER 2018-03-11 11:40 | Emergency (ER) | payer MEDICARE, OTHER ==
[2018-03-11 11:59] VITALS: RESP 18
[2018-03-11] MEDS ORDERED: ONDANSETRON 4 MG/2 ML VIAL IVP STA (12:41)
[2018-03-11] MEDS ORDERED: SODIUM CHLORIDE 0.9% 1,000 ML IV STA (12:41)
[2018-03-11] MEDS ORDERED: KETOROLAC 30 MG/ML 1 ML VIAL IVP STA (12:41)
--- NOTE | 2018-03-11 12:42 | ED ---
General Adult HPI - General Chief complaint: Abdominal Pain Stated complaint: Lower back pain Time Seen by Provider: 03/11/18 12:04 Source: patient, RN notes reviewed Mode of arrival: ambulatory Limitations: no limitations - History of Present Illness Initial comments: 53-year-old female with a past medical history of COPD, TIA, fibromyalgia, GERD , hyperlipidemia, hypertension, seizures presents to the emergency department for a chief complaint of abdominal pain and bloating. This has been ongoing for the past 4 days. Patient states that the pain wraps around to her left side as well. She states she has been nauseous but has not vomited. She does admit to some loose stools over the past couple days as well. She does have a history of diverticulitis, no history of Crohn's or ulcerative colitis. Patient denies melena or hematochezia. Patient has no other complaints at this time including shortness of breath, chest pain, nausea, headache, or visual changes. - Related Data Home Medications Medication Instructions Recorded Confirmed Cetirizine HCl 10 mg PO DAILY 09/07/13 03/11/18 Dicyclomine [Bentyl] 10 mg PO BID 09/07/13 03/11/18 Ibuprofen [Motrin] 800 mg PO BID PRN 09/07/13 03/11/18 LORazepam [Ativan] 0.5 mg PO BID PRN 09/07/13 03/11/18 Multivitamins, Thera [Multivitamin 1 tab PO DAILY 09/07/13 03/11/18 (formulary)] Ranitidine HCl [Zantac] 150 mg PO BID PRN 09/07/13 03/11/18 Clopidogrel [Plavix] 75 mg PO DAILY 02/16/14 03/11/18 levETIRAcetam [Keppra] 1,000 mg PO BID 10/09/14 03/11/18 Gemfibrozil [Lopid] 600 mg PO AC-BID 07/07/16 03/11/18 Ergocalciferol (Vitamin D2) 50,000 unit PO Q30D 10/19/16 03/11/18 [Vitamin D2] HYDROcodone/APAP 7.5-325MG [[place] 1 tab PO BID PRN 10/19/16 03/11/18 7.5-325] Aspirin 81 mg PO DAILY 03/08/17 03/11/18 Benazepril HCl 20 mg PO DAILY 03/08/17 03/11/18 Divalproex ER [Depakote ER] 1,000 mg PO BID 03/08/17 03/11/18 Hydrochlorothiazide [Hydrodiuril] 25 mg PO DAILY 03/08/17 03/11/18 Lidocaine 5% Patch [Lidoderm 5% 1 patch TRANSDERM DAILY PRN 03/08/17 03/11/18 Patch] Ondansetron HCl [Zofran] 8 mg PO DAILY PRN 03/08/17 03/11/18 Pantoprazole Sodium [Protonix] 40 mg PO DAILY 03/08/17 03/11/18 Scopolamine 1.5MG/72Hr Patch 1 patch TRANSDERM Q72H PRN 03/08/17 03/11/18 [TransDerm Scop] Cyclobenzaprine HCl 20 mg PO HS 05/14/17 03/11/18 Cyclobenzaprine [Flexeril] 10 mg PO BID 10/18/17 03/11/18 Ascorbic Acid [Vitamin C] 500 mg PO BID 03/11/18 03/11/18 Cephalexin [Keflex] 500 mg PO Q8H 03/11/18 03/11/18 Cyanocobalamin (Vitamin B-12) 1,000 mcg PO DAILY 03/11/18 03/11/18 [Vitamin B-12] diphenhydrAMINE [Benadryl] 25 - 50 mg PO HS 03/11/18 03/11/18 Allergies Allergy/AdvReac Type Severity Reaction Status Date / Time Pmvyzxj-[id number]-Yhi Reductase Allergy Severe Rash/Hives Verified 03/11/18 12:57 Inhibitor levofloxacin [From Levaquin] Allergy Swelling Verified 03/11/18 12:57 naratriptan HCl [From Amerge] Allergy "caused Verified 03/11/18 12:57 equilibrium to be off" migraine medications AdvReac Severe causes Uncoded 07/13/17 14:46 seizures Review of Systems ROS Statement: Those systems with pertinent positive or pertinent negative responses have been documented in the HPI. ROS Other: All systems not noted in ROS Statement are negative. Past Medical History Past Medical History: COPD, CVA/TIA, Fibromyalgia, GERD/Reflux, Hyperlipidemia, Hypertension, Neurologic Disorder, Seizure Disorder Additional Past Medical History / Comment(s): LAST SEIZURE 12/2015 (Now 10/18/2017 ) ,severe migraines from brain aneurysm, TIA x6, LEFT ARM WEAKNESS, NEUROPATHY MATT LEGS, memory loss , occ vertigo, recent UTI now resolved, see Dr Walker H & P History of Any Multi-Drug Resistant Organisms: None Reported Past Surgical History: Appendectomy, Cholecystectomy, Tonsillectomy, Uterine Ablation Additional Past Surgical History / Comment(s): r lung surgery top portion lung removed, (STATES R/T FUNGUS) Has implanted TENS unit in back of head WITH BATTERY PACK IN BACK; surgical revision done by Dr. Linton in September 2013, "brain sx for aneurysm has a coil", VNS therapy Past Anesthesia/Blood Transfusion Reactions: No Reported Reaction Additional Past Anesthesia/Blood Transfusion Reaction / Comment(s): STATES VERY HARD IV START Past Psychological History: Anxiety, Panic Disorder Smoking Status: Current every day smoker Past Alcohol Use History: Rare Past Drug Use History: None Reported - Past Family History Father Family Medical History: Liver Disease Additional Family Medical History / Comment(s): ALCOHOLIC CIRRHOISIS Sister(s) Family Medical History: Cancer Mother Family Medical History: Cancer Additional Family Medical History / Comment(s): COLON Brother(s) Family Medical History: Cancer Additional Family Medical History / Comment(s): COLON General Exam Limitations: no limitations General appearance: alert, in no apparent distress Head exam: Present: atraumatic, normocephalic, normal inspection Eye exam: Present: normal appearance, PERRL, EOMI. Absent: scleral icterus, conjunctival injection, periorbital swelling ENT exam: Present: normal exam, mucous membranes moist Neck exam: Present: normal inspection, full ROM. Absent: tenderness, meningismus, lymphadenopathy Respiratory exam: Present: normal lung sounds bilaterally. Absent: respiratory distress, wheezes, rales, rhonchi, stridor Cardiovascular Exam: Present: regular rate, normal rhythm, normal heart sounds. Absent: systolic murmur, diastolic murmur, rubs, gallop, clicks GI/Abdominal exam: Present: soft, tenderness (Tenderness noted to the left lower quadrant, no guarding present.), normal bowel sounds. Absent: distended, guarding, rebound, rigid Neurological exam: Present: alert, oriented X3, CN II-XII intact Psychiatric exam: Present: normal affect, normal mood Course Vital Signs 01/28/19 11:56 Temperature 97.9 F Pulse Rate 82 Respiratory 18 Rate Blood Pressure 119/86 O2 Sat by Pulse 97 Oximetry Medical Decision Making - Medical Decision Making 53-year-old female with a history of diverticulitis presents to the emergency department for a chief of left lower quadrant pain. Patient does have pain radiating to the left side as well. No vomiting the patient is nauseous. Patient has had loose stools over the past couple days. CBC CMP unremarkable. Urine does not show any evidence of infection. CT of the abdomen shows prominent fluid filled small bowel loops in the left side of the abdomen correlate for regional ileus or enteritis. This is consistent with patient's symptoms. Discussed hydration and follow up with primary care in 1-2 days. Discussed returning if she has any worsening symptoms. - Lab Data Result diagrams: 03/11/18 13:00 03/11/18 13:00 Lab Results 03/11/18 03/11/18 03/11/18 Range/Units 13:00 13:00 13:00 WBC 10.9 H (3.8-10.6) k/uL RBC 4.22 (3.80-5.40) m/uL Hgb 12.9 (11.4-16.0) gm/dL Hct 37.8 (34.0-46.0) % MCV 89.6 (80.0-100.0) fL MCH 30.6 (25.0-35.0) pg MCHC 34.1 (31.0-37.0) g/dL RDW 12.5 (11.5-15.5) % Plt Count 409 (150-450) k/uL Neutrophils % 56 % Lymphocytes % 33 % Monocytes % 5 % Eosinophils % 3 % Basophils % 0 % Neutrophils # 6.1 (1.3-7.7) k/uL Lymphocytes # 3.6 (1.0-4.8) k/uL Monocytes # 0.6 (0-1.0) k/uL Eosinophils # 0.3 (0-0.7) k/uL Basophils # 0.0 (0-0.2) k/uL Sodium 142 (137-145) mmol/L Potassium 4.0 (3.5-5.1) mmol/L Chloride 107 (98-107) mmol/L Carbon Dioxide 25 (22-30) mmol/L Anion Gap 10 mmol/L BUN 9 (7-17) mg/dL Creatinine 0.45 L (0.52-1.04) mg/dL Est GFR (CKD-EPI)AfAm >90 (>60 ml/min/1.73 sqM) Est GFR (CKD-EPI)NonAf >90 (>60 ml/min/1.73 sqM) Glucose 87 (74-99) mg/dL Calcium 10.3 H (8.4-10.2) mg/dL Total Bilirubin 0.4 (0.2-1.3) mg/dL AST 32 (14-36) U/L ALT 39 (9-52) U/L Alkaline Phosphatase 119 (38-126) U/L Total Protein 8.0 (6.3-8.2) g/dL Albumin 5.0 (3.5-5.0) g/dL Amylase 41 (30-110) U/L Lipase 107 (23-300) U/L Urine Color Urine Appearance (Clear) Urine pH (5.0-8.0) Ur Specific [place] (1.001-1.035) Urine Protein (Negative) Urine Glucose (UA) (Negative) Urine Ketones (Negative) Urine Blood (Negative) Urine Nitrite (Negative) Urine Bilirubin (Negative) Urine Urobilinogen (<2.0) mg/dL Ur Leukocyte Esterase (Negative) Urine HCG, Qual Not Detected (Not Detectd) 03/11/18 Range/Units 13:00 WBC (3.8-10.6) k/uL RBC (3.80-5.40) m/uL Hgb (11.4-16.0) gm/dL Hct (34.0-46.0) % MCV (80.0-100.0) fL MCH (25.0-35.0) pg MCHC (31.0-37.0) g/dL RDW (11.5-15.5) % Plt Count (150-450) k/uL Neutrophils % % Lymphocytes % % Monocytes % % Eosinophils % % Basophils % % Neutrophils # (1.3-7.7) k/uL Lymphocytes # (1.0-4.8) k/uL Monocytes # (0-1.0) k/uL Eosinophils # (0-0.7) k/uL Basophils # (0-0.2) k/uL Sodium (137-145) mmol/L Potassium (3.5-5.1) mmol/L Chloride (98-107) mmol/L Carbon Dioxide (22-30) mmol/L Anion Gap mmol/L BUN (7-17) mg/dL Creatinine (0.52-1.04) mg/dL Est GFR (CKD-EPI)AfAm (>60 ml/min/1.73 sqM) Est GFR (CKD-EPI)NonAf (>60 ml/min/1.73 sqM) Glucose (74-99) mg/dL Calcium (8.4-10.2) mg/dL Total Bilirubin (0.2-1.3) mg/dL AST (14-36) U/L ALT (9-52) U/L Alkaline Phosphatase (38-126) U/L Total Protein (6.3-8.2) g/dL Albumin (3.5-5.0) g/dL Amylase (30-110) U/L Lipase (23-300) U/L Urine Color Light Yellow Urine Appearance Clear (Clear) Urine pH 7.0 (5.0-8.0) Ur Specific [place] 1.003 (1.001-1.035) Urine Protein Negative (Negative) Urine Glucose (UA) Negative (Negative) Urine Ketones Negative (Negative) Urine Blood Negative (Negative) Urine Nitrite Negative (Negative) Urine Bilirubin Negative (Negative) Urine Urobilinogen <2.0 (<2.0) mg/dL Ur Leukocyte Esterase Negative (Negative) Urine HCG, Qual (Not Detectd) Disposition Clinical Impression: Abdominal pain Disposition: HOME SELF-CARE Condition: Good Instructions (If sedation given, give patient instructions): Abdominal Pain (ED ), Enteritis (ED) Additional Instructions: Please follow-up with primary care in 1-2 days. Drink plenty of fluids. Stay hydrated. Please return to the emergency department if patient has any worsening symptoms. Is patient prescribed a controlled substance at d/c from ED?: No Referrals: Juana Garcia MD [Primary Care Provider] - 1-2 days Time of Disposition: 15:38
[2018-03-11 13:31] LABS: Basophils % (A) 0 %; Eosinophils # (A) 0.3 k/uL (0-0.7); Eosinophils % (A) 3 %; HCT 37.8 % (34.0-46.0); HGB 12.9 gm/dL (11.4-16.0); Lymphocytes # (A) 3.6 k/uL (1.0-4.8); Lymphocytes % (A) 33 %; MCH 30.6 pg (25.0-35.0); MCHC 34.1 g/dL (31.0-37.0); MCV 89.6 fL (80.0-100.0); Monocytes # (A) 0.6 k/uL (0-1.0); Monocytes % (A) 5 %; Neutrophils # (A) 6.1 k/uL (1.3-7.7); Neutrophils % (A) 56 %; Platelet Count 409 k/uL (150-450); RBC 4.22 m/uL (3.80-5.40); RDW 12.5 % (11.5-15.5); WBC 10.9 k/uL (3.8-10.6)
[2018-03-11 13:32] LABS: Appearance,Urine Clear (Clear); Bilirubin,Urine Negative (Negative); Blood,Urine Negative (Negative); Color,Urine Light Yellow; Glucose,Urine (UA) Negative (Negative); Ketones,Urine Negative (Negative); Leukocyte Esterase,Urine Negative (Negative); Nitrite,Urine Negative (Negative); Protein,Urine Negative (Negative); Specific Gravity,Urine 1.003 (1.001-1.035); Urobilinogen,Urine <2.0 mg/dL (<2.0)
[2018-03-11 13:42] LABS: ALT 39 U/L (9-52); AST 32 U/L (14-36); Alkaline Phosphatase 119 U/L (38-126); Amylase 41 U/L (30-110); Anion Gap 10 mmol/L; Blood Urea Nitrogen 9 mg/dL (7-17); Calcium 10.3 mg/dL (8.4-10.2); Carbon Dioxide 25 mmol/L (22-30); Chloride 107 mmol/L (98-107); Glucose 87 mg/dL (74-99); Lipase 107 U/L (23-300); Sodium 142 mmol/L (137-145); Total Bilirubin 0.4 mg/dL (0.2-1.3)
--- NOTE | 2018-03-11 15:13 | CT ---
EXAMINATION TYPE: CT abdomen pelvis w con DATE OF EXAM: 03/11/2018 COMPARISON: 10/31/2016 HISTORY: 53-year-old female complains of left side low back and abdominal pain. TECHNIQUE: Contiguous axial scanning of the abdomen and pelvis following administration of 100 ml Omn ipaque 300 IV contrast. Delayed images through the kidneys and coronal/sagittal reconstructions perf ormed. CT DLP: 667 mGycm Automated exposure control for dose reduction was used. FINDINGS: Heart normal size without pericardial effusion. Some post surgical changes present at the GE junction . Mild dependent atelectasis in the lungs. No pleural effusion. Liver measures 21.0 cm. Some focal fat along the anterior falciform ligament. Portal venous system is patent. Bile duct measures 6 mm which is upper limits of normal. Likely secondary to postcholecystec adriana status. Adrenal glands, kidneys, spleen, pancreas appear within normal limits. Prominent fluid filled small bowel loops in the left midabdomen. No dilated small bowel, free fluid, or free air. Stable postsurgical changes along the right lower quadrant could relate to prior appendectomy. Mild overall stool burden. No pericolonic inflammatory change. Bladder urine distended. Uterus and both ovaries are visualized. Bilateral tubal ligation clips. No a bnormal fluid collection in the pelvis or pelvic lymphadenopathy. Bones: Mild degenerative changes of the hips. Generator device along the right posterior flank. Degen erative disc disease lower thoracic spine. No osseous destructive process. IMPRESSION: 1. PROMINENT FLUID-FILLED SMALL BOWEL LOOPS IN THE LEFT SIDE OF THE ABDOMEN. CORRELATE FOR REGIONAL I LEUS OR ENTERITIS. 2. HEPATOMEGALY (21.0 CM).
[2018-03-11] MEDS ORDERED: MORPHINE SULFATE 4 MG/ML SYRINGE IVP STA (15:45)
[2018-03-11 16:36] VITALS: BP 135/89; PULSE 65; TEMP 97.4
== END 2018-03-11 16:36 | disposition home or self-care (01) ==
LOC: EC 11:40
DX: R10.32 Left lower quadrant pain (principal); R11.0 Nausea; M54.5 Low back pain; R14.0 Abdominal distension (gaseous); K21.9 Gastro-esophageal reflux disease without esophagitis; E78.5 Hyperlipidemia, unspecified; I10 Essential (primary) hypertension; G40.909 Epilepsy, unspecified, not intractable, without status epilepticus; M79.7 Fibromyalgia; F17.200 Nicotine dependence, unspecified, uncomplicated; Z87.19 Personal history of other diseases of the digestive system; Z86.73 Personal history of transient ischemic attack (TIA), and cerebral infarction without residual deficits; Z79.02 Long term (current) use of antithrombotics/antiplatelets; Z79.82 Long term (current) use of aspirin; Z79.899 Other long term (current) drug therapy; Z88.8 Allergy status to other drugs, medicaments and biological substances; Z88.1 Allergy status to other antibiotic agents
CPT/HCPCS: 36415; 80053; 82150; 83690; 85025; 81003; 81025; 74177; 99284; 96374; 96375 ×2; 96361 ×3; J2270; J2405; J1885; Q9967

== ENCOUNTER → 2018-10-16 | Outpatient (CLI) | payer MEDICARE, OTHER ==
--- NOTE | 2018-10-16 08:36 | XR ---
EXAMINATION TYPE: XR chest 2V DATE OF EXAM: 10/16/2018 COMPARISON: 03/08/2017 HISTORY: Cough and congestion for 2 weeks TECHNIQUE: Frontal and lateral views of the chest are obtained. FINDINGS: Cardiac loop recorder and nerve stimulators are seen. No focal consolidation, pleural effu prudencio or pneumothorax. Skinfold overlies the left lateral hemithorax. Cardiomediastinal silhouette is within normal limits. Surgical clip within the right paratracheal space is seen. Osseous structures a re grossly intact with minimal degenerative changes of the spine. IMPRESSION: No acute cardiopulmonary process.
== END | disposition home or self-care (01) ==
LOC: RADXRMAIN 07:11
PROVIDERS: ATTEND Family Medicine
DX: R05 Cough (principal); R06.02 Shortness of breath
CPT/HCPCS: 71046

== ENCOUNTER → 2018-11-20 | Outpatient (CLI) | payer MEDICARE, OTHER ==
--- NOTE | 2018-11-20 10:04 | CT ---
EXAMINATION TYPE: CT brain wo con DATE OF EXAM: 11/20/2018 COMPARISON: 03/10/2017 HISTORY: Hx of Cerebral aneurysm CT DLP: 1017.9 mGycm Automated exposure control for dose reduction was used. FINDINGS: Exam is limited by artifact from the patient's aneurysm clip which obscures significant portions of t he intraparenchymal structures. Within the visualized region there is no diagnostic evidence of sizab le acute intracranial hemorrhage or mass effect. Suggestion of a pineal gland cyst retrospectively st able from prior exam. There are vague areas of low-attenuation the white matter which are nonspecific . Assessment of the vasculature is nearly nondiagnostic due to location the clip and artifact. There is a partially empty sella turcica. Suggestion of previous surgical change in the posterior sof t tissues. Cerebellar tonsils appear to extend extend to the level the foramen magnum. IMPRESSION: LIMITED EXAM DUE TO EXTENSIVE ARTIFACT FROM THE ANEURYSM CLIP DEMONSTRATES NO DEFINITE SIZABLE ACUTE INTRAPARENCHYMAL HEMORRHAGE, MASS EFFECT OR MIDLINE SHIFT. SUBTLE AREAS OF LOW-ATTENUATION THE WHITE MATTER IS NONSPECIFIC. THIS COULD BE CORRELATED WITH MRI IF THERE IS CONCERN FOR ACUTE ISCHEMIA. FINDINGS NONSPECIFIC AND BE SEEN WITH MICROVASCULAR ISCHEMIA OR DEMYELINATION..
== END | disposition home or self-care (01) ==
LOC: RADCTMAIN 09:18
PROVIDERS: ATTEND Psychiatry & Neurology Neurology
DX: I67.1 Cerebral aneurysm, nonruptured (principal); Z88.1 Allergy status to other antibiotic agents; Z88.8 Allergy status to other drugs, medicaments and biological substances
CPT/HCPCS: 70450

== ENCOUNTER → 2018-12-18 | Outpatient (CLI) | payer MEDICARE, OTHER ==
[2018-12-18 19:02] LABS: Total Protein,CSF 53 mg/dL (12-60)
[2018-12-18 19:40] LABS: Appearance,CSF Clear; CSF Tube Number 4; CSF Tube Volume 3.5; Nucleated Cells, CSF 0 u/L (0-5); Red Blood Cell,CSF 0 u/L (0-10)
[2018-12-19 13:29] LABS: IgG - CSF 1.6 mg/dL (0.0 - 3.4); IgG/Albumin Index (CSF) 0.49 (0.00 - 0.77); Immunoglobulin G 612 mg/dL (700 - 1600)
== END | disposition home or self-care (01) ==
LOC: LABWHC1 07:14
PROVIDERS: ATTEND Psychiatry & Neurology Pain Medicine
DX: R90.82 White matter disease, unspecified (principal)
CPT/HCPCS: 36415; 82040; 82042; 82784; 83873; 83916; 84157; 87801; 89050

== ENCOUNTER → 2019-03-13 | Outpatient (CLI) | payer MEDICARE, OTHER ==
--- NOTE | 2019-03-13 12:54 | CT ---
EXAMINATION TYPE: CT abdomen pelvis wo con DATE OF EXAM: 03/13/2019 HISTORY: Generalized abdominal pain, R/O colitis. CT DLP: 700 mGycm. Automated Exposure Control for Dose Reduction was Utilized. TECHNIQUE: CT scan of the abdomen and pelvis is performed with oral but without IV contrast. COMPARISON: CT abdomen and pelvis March 11, 2018 and older CTs October 31, 2016. FINDINGS: Within the limitations of a non-contrast study, the following observations are made. LUNG BASES: No significant abnormality is appreciated. LIVER/GB: Gallbladder not seen similar to prior studies presumed surgically absent. PANCREAS: No significant abnormality is seen. SPLEEN: No significant abnormality is seen. ADRENALS: No significant abnormality is seen. KIDNEYS: No significant abnormality is seen. BOWEL: Oral contrast does not reach level of distal ileum making evaluation of distal bowel slightly suboptimal. There is distention of stomach with air-fluid level. There is prominence of duodenal swee p up to SMA crossover. There appears to be some wall thickening of small bowel loops in the region of the duodenal jejunal junction and ligament of Treitz. These bowel loops are poorly opacified however . No suspicious contrast-filled dilatation of small bowel loops in the left abdomen. Surgical clips fro m appendectomy seen near cecum. No suspicious colonic dilatation. Diverticula in the left and sigmoid colon are present without CT evidence for acute diverticulitis. Mild to moderate wall thickening sig moid colon is present. Mild prominence of fecal material in the right and transverse colon GENITAL ORGANS: Anteverted uterus redemonstrated. Tubal ligation clips along the periphery again seen . LYMPH NODES: No greater than 1cm abdominal or pelvic lymph nodes are appreciated. OSSEOUS STRUCTURES: Mild narrowing in both hip joints. OTHER: There are stimulator type device in the posterior left mid abdominal subcutaneous tissues shelbi lar to prior with leads extending towards the thoracic spine. Stable small fat-containing bilateral i nguinal hernias. IMPRESSION: 1. Mild to moderate wall thickening sigmoid colon could reflect a mild uncomplicated acute colitis ve rsus product of poor distention. Overall nonobstructive bowel gas pattern. Mild proximal colonic feca l stasis is thought present. I am more suspicious for a left upper to mid abdominal enteritis near th e ligament of Treitz. When reviewing prior contrast-enhanced CTs there is widely patent SMA with poor visualization of patent celiac artery superior to this reference sagittal image 67 in 2019 study and sagittal image 36 and 2017 study. 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 Correlate clinically and consider further workup even if this is a chronic find ing.
== END | disposition home or self-care (01) ==
LOC: RADCTMAIN 10:22
PROVIDERS: ATTEND Family Medicine
DX: R19.5 Other fecal abnormalities (principal)
CPT/HCPCS: 74176

== ENCOUNTER → 2019-03-27 | Outpatient (CLI) | payer MEDICARE, OTHER ==
--- NOTE | 2019-03-27 07:58 | US ---
EXAMINATION TYPE: US venous doppler duplex LE RT DATE OF EXAM: 03/27/2019 7:27 AM COMPARISON: Prev Left leg CLINICAL HISTORY: R22.41 Swelling of rt lower limb. Pt states palpable lump right posterior knee SIDE PERFORMED: Right TECHNIQUE: The lower extremity deep venous system is examined utilizing real time linear array sonog aline with graded compression, doppler sonography and color-flow sonography. VESSELS IMAGED: External Iliac Vein (EIV) Common Femoral Vein Deep Femoral Vein Greater Saphenous Vein * Femoral Vein Popliteal Vein Small Saphenous Vein * Proximal Calf Veins (* superficial vessels) Grayscale, color doppler, spectral doppler imaging performed of the deep veins of the right lower ext remity. There is normal flow, compressibility, vascular waveforms. Right Leg: Negative for DVT, area of pt's palpable right popliteal fossa shows ill-defined echogenic area measuring approximately 1.5 x 0.6 x 1.1 cm IMPRESSION: 1. No sonographic evidence of deep venous thrombosis within the right lower extremity. 2. In the region of the patient's palpable abnormality there is an ill-defined hyperechoic area measu ring approximately 1.5 cm. This is avascular and could represent a lipoma, fat necrosis, contusion, o r less likely malignant lipomatous lesion. If there is interval clinical growth repeat ultrasound wou ld be recommended to reassess size.
== END | disposition home or self-care (01) ==
LOC: RADUSWWP 07:03
PROVIDERS: ATTEND Family Medicine
DX: R22.41 Localized swelling, mass and lump, right lower limb (principal)

== ENCOUNTER → 2023-04-18 | Outpatient (CLI) | payer MEDICARE, OTHER ==
--- NOTE | 2023-04-22 14:36 | CT ---
EXAMINATION TYPE: CT soft tissue neck wo/w con CT DLP: 614.8 mGycm, Automated exposure control for dose reduction was used. DATE OF EXAM: 04/18/2023 8:46 AM COMPARISON: 03/08/2017. CLINICAL INDICATION:Female, 58 years old with history of Z96.89 PRESENCE OF OTHER SPECIFIED FUNCTIONA L IMPL; PHH, vns disfunction TECHNIQUE: Standard enhanced CT of the neck. Axial sections with coronal and sagittal reformats were obtained. Contrast used:100 mL of Isovue 300 with IV Contrast, (None if empty) Oral contrast used: (None if empty) FINDINGS: Brain: Visualized portions are grossly unremarkable. Orbits: Unremarkable Sinuses: Grossly unremarkable. Spaces of the neck: Clear and symmetric. The stents into the neck in the left carotid artery. Other s timulator leads are in the posterior neck. No soft tissue mass or organizing fluid collection identified. The carotid sheaths are slightly unrem arkable extending to the neck. No abnormal postcontrast enhancement within the neck. The visualized p ortion of the oropharynx, hypopharynx are grossly unremarkable. Mild osteophyte formation along the 6 and C7 vertebral bodies which minimally impresses upon the esophagus at this level. Musculoskeletal: No acute osseous pathology. Mild degeneration changes joint space narrowing, osteoph ytes, facet and uncovertebral joint arthropathy. Lymph nodes: Multiple nonenlarged lymph nodes are seen along both anterior chains of the neck. Vascular structures: Visualized major arteries are patent without evidence of aneurysm. There is aneu rysm clip near the basilar tip which limits evaluation. The remainder of the intracranial vasculature visualized is without evidence for high-grade stenosis or aneurysm. The dural sinuses are patent. Thoracic Inlet/airway: Airway is patent. Paraseptal and centrilobular emphysema changes are seen in t he lung apices. Postsurgical change and desiccation of the right superior pulmonary hilum partially c alcified lymph nodes on the left pulmonary hilum. No mass. Soft tissues/Thyroid: Thyroid and remainder of the soft tissues are unremarkable. Other: none. Mild IMPRESSION 1. No soft tissue mass or organizing fluid collection. No abnormality involving the hypopharynx or o ropharynx. 2. Mild emphysema. 3. Mild degeneration changes of the neck.
== END | disposition home or self-care (01) ==
LOC: RADCTMAIN 08:08
PROVIDERS: ATTEND Psychiatry & Neurology Neurology
DX: M50.30 Other cervical disc degeneration, unspecified cervical region (principal); J43.2 Centrilobular emphysema; G52.2 Disorders of vagus nerve; R47.02 Dysphasia; Z96.89 Presence of other specified functional implants
CPT/HCPCS: 70492; Q9967